=== PATIENT | male | born 1950 | race Caucasian/White ===

== ENCOUNTER 2018-03-31 02:48 | Outpatient (CLI) | payer MEDICARE, MEDICAID, SELFPAY ==
[2018-03-31 09:33] LABS: Hemoglobin A1C 5.2 % (4.5-6.2)
[2018-03-31 09:35] LABS: ALT 11 U/L (12-78); AST 15 U/L (15-37); Albumin 3.8 g/dL (3.4-5.0); Alkaline Phosphatase 57 U/L (46-116); Anion Gap 6.2 mmol/L (3-11); BUN 17 mg/dL (7-18); Bilirubin, Total 0.5 mg/dL (0.2-1.0); CO2 33.8 mmol/L (21.0-32.0); CREATININE 0.78 mg/dL (0.70-1.30); Calcium 9.5 mg/dL (8.5-10.1); Chloride 103 mmol/L (98-107); Cholesterol 194 mg/dL (50-200); Glucose 97 mg/dL (70-100); HDL Cholesterol 54 mg/dL (40-60); LDL CHOLESTEROL 128 mg/dL (<100); Potassium 4.2 mmol/L (3.5-5.1); Sodium 143 mmol/L (136-145); Total Protein 7.1 g/dL (6.4-8.2); Triglyceride 45 mg/dL (30-150)
== END 2018-03-31 03:08 ==
PROVIDERS: PCP Neuromusculoskeletal Medicine & OMM; Visit Provider Psychiatry & Neurology Psychiatry
DX: Z79.899 Other long term (current) drug therapy (principal); R69 Illness, unspecified
CPT/HCPCS: 36415; 80053; 80061; 83721; 83036

== ENCOUNTER 2019-07-26 03:23 | Outpatient (CLI) | payer MEDICARE, MEDICAID, SELFPAY ==
[2019-07-26 08:26] LABS: Hemoglobin A1C 5.7 % (3.8-5.6)
[2019-07-26 09:11] LABS: ALT 16 U/L (16-63); AST 16 U/L (15-37); Albumin 3.9 g/dL (3.4-5.0); Alkaline Phosphatase 54 U/L (46-116); Anion Gap 8.3 mmol/L (3-11); BUN 17 mg/dL (7-18); Bilirubin, Total 0.4 mg/dL (0.2-1.0); CO2 30.7 mmol/L (21.0-32.0); CREATININE 0.84 mg/dL (0.70-1.30); Calcium 9.1 mg/dL (8.5-10.1); Calculated LDL 121 mg/dL (<100); Chloride 102 mmol/L (98-107); Cholesterol 177 mg/dL (<200); Glucose 106 mg/dL (74-106); HDL Cholesterol 50 mg/dL (40-60); Potassium 4.3 mmol/L (3.5-5.1); Sodium 141 mmol/L (136-145); Total Protein 6.7 g/dL (6.4-8.2); Triglyceride 34 mg/dL (<150)
== END 2019-07-26 03:43 ==
PROVIDERS: PCP Neuromusculoskeletal Medicine & OMM; Visit Provider Psychiatry & Neurology Psychiatry
DX: Z79.899 Other long term (current) drug therapy (principal)
CPT/HCPCS: 36415; 80053; 80061; 83036

== ENCOUNTER 2020-05-11 03:04 | Outpatient (CLI) | payer MEDICARE, MEDICAID, SELFPAY ==
[2020-05-11 09:39] LABS: Hemoglobin A1C 5.5 % (<5.7)
[2020-05-11 10:34] LABS: Vitamin D 25 Total 65.6 ng/ml (30-100)
[2020-05-11 10:45] LABS: ALT 24 U/L (16-63); AST 17 U/L (15-37); Alkaline Phosphatase 69 U/L (46-116); Anion Gap 6.4 mmol/L (3-11); BUN 19 mg/dL (7-18); Bilirubin, Total 0.4 mg/dL (0.2-1.0); CO2 31.6 mmol/L (21.0-32.0); CREATININE 0.7 mg/dL (0.70-1.30); Calcium 9.5 mg/dL (8.5-10.1); Calculated LDL 115 mg/dL (<100); Chloride 100 mmol/L (98-107); Cholesterol 175 mg/dL (<200); Glucose 104 mg/dL (74-106); HDL Cholesterol 52 mg/dL (40-60); Potassium 4.5 mmol/L (3.5-5.1); Sodium 138 mmol/L (136-145); Total Protein 7.2 g/dL (6.4-8.2); Triglyceride 40 mg/dL (<150); Vitamin B12 450 pg/mL (193-986)
== END 2020-05-11 03:05 | disposition home or self-care (01) ==
LOC: LBO 03:05
PROVIDERS: PCP Neuromusculoskeletal Medicine & OMM; Visit Provider Psychiatry & Neurology Psychiatry
DX: Z79.899 Other long term (current) drug therapy (principal)
CPT/HCPCS: 36415; 80053; 80061; 82306; 82607; 83036

== ENCOUNTER 2020-07-05 10:16 | Outpatient (REF) | payer MEDICARE, MEDICAID, SELFPAY ==
[2020-07-05 14:27] LABS: C Diff PCR Positive (Negative)
[2020-07-06 11:47] LABS: Campylobacter PCR Negative (Negative); Salmonella PCR Negative (Negative); Shiga Toxin PCR Negative (Negative); Shigella/Enteroinvasive Ecoli Negative (Negative)
== END 2020-07-05 10:17 | disposition home or self-care (01) ==
LOC: NCHCN 10:16
PROVIDERS: PCP Neuromusculoskeletal Medicine & OMM; Visit Provider Neuromusculoskeletal Medicine & OMM
DX: R19.7 Diarrhea, unspecified (principal)
CPT/HCPCS: 87493; 87505; 82272; 87177

== ENCOUNTER 2020-08-01 17:57 | Outpatient (REF) | payer MEDICARE, MEDICAID, SELFPAY ==
[2020-08-01 13:26] LABS: C Diff PCR Positive (Negative)
== END 2020-08-01 17:58 | disposition home or self-care (01) ==
LOC: LBN 17:57
PROVIDERS: PCP Neuromusculoskeletal Medicine & OMM; Visit Provider Neuromusculoskeletal Medicine & OMM
DX: A04.72 Enterocolitis due to Clostridium difficile, not specified as recurrent (principal)
CPT/HCPCS: 87493

== ENCOUNTER 2020-12-25 12:59 | Inpatient (IN) | payer MEDICARE, MEDICAID, SELFPAY ==
[2020-12-25] VITALS (51 sets, daily range): BP systolic 106–130; BP diastolic 50–68; PULSE 50–78; RESP 9–20; TEMP 35.6–36.6; O2SAT 92–99; BMI 22.4
--- NOTE | 2020-12-25 13:15 | DI.CT_ITS ---
Exam(s) CT ABDOMEN PELVIS W EXAM: CT ABDOMEN PELVIS W CLINICAL HISTORY: Abd distension, bloating, vomiting TECHNIQUE: Imaging Protocol: Axial computed tomography images with coronal and sagittal reformatted images were created and reviewed CONTRAST MATERIAL: Intravenous: Omnipaque 350 Contrast volume:100 mL Oral: No COMPARISON: No exams were available for comparison FINDINGS: ABDOMEN: Lung Bases: Normal where visualized. Liver: Normal density. No measurable mass. There is an area of decreased attenuation in the liver adj acent to the gallbladder which may represent focal fatty infiltration. Portal, Superior Mesenteric, and Splenic Veins: Unremarkable. Gallbladder and Biliary Tract: No radiodense calculus or dilation. Pancreas: Normal density, no abnormal calcifications or inflammatory process. Spleen: Normal. There is an accessory spleen adjacent to the inferior pole. Adrenals: No masses seen. Kidneys: Normal size, contour and axis. No radiodense stones or obstructive uropathy. There is a 1.3 cm simple left renal cyst. No follow-up is recommended. There are several tiny hypodensities seen i n both kidneys that are too small for further characterization but likely reflect small cysts. Abdominal Aorta: Abdominal portion non-dilated. Atherosclerosis. Bowel: There is marked dilatation of the sigmoid colon which appears to twist with a seroma pattern s een in the pelvis proximal to the rectosigmoid colon junction. (Series 5 images 502 through 642). T he findings are most consistent with a sigmoid volvulus. There is dilatation of the large bowel prox imally consistent with obstruction. There is a moderate amount of stool throughout the colon. There is thickening of the wall of the rectum and proctitis cannot be excluded. A normal appendix is visu alized. Peritoneal Cavity: No ascites, collection or mesenteric inflammatory response. No free air. Lymph Nodes: Within normal limits. Bones: Within normal limits for the patient's age. Soft Tissues: Bilateral inguinal hernia. There is a fat containing left inguinal hernia. There is a small amount of fluid and a small portion of the urinary bladder extending into the right inguinal h ernia. PELVIS: Bladder: Symmetric distention, no gross wall thickening. A small portion of the urinary bladder on th e right extends into the right inguinal hernia. Reproductive Organs: Unremarkable as visualized. Lymph Nodes: Within normal limits. Bones: Within normal limits for the patient's age. IMPRESSION: 1. Findings most suggestive of a sigmoid volvulus. No evidence of free air. 2. Results of this exam have been verbally communicated with provider. RADIATION DOSE DELIVERED: 991.22mGy.cm Total DLP DATA REPOSITORY: All CT scans at this facility are submitted to the National Radiology Data Registry (NRDR) Dose Index Registry (DIR) with the [employer] [place] [employer] (ACR). RADIATION OPTIMIZATION: All CT scans at this facility use at least one of these dose optimization te chniques: automated exposure control; mA and/or kV adjustment per patient size (includes targeted exa ms where dose is matched to clinical indication); or iterative reconstruction.
--- NOTE | 2020-12-25 13:16 | ED.GENADUL_ITS ---
Discharge Plan Disposition Patient Disposition: [facility] INPATIENT Condition: Serious Discharge Details Clinical Impression: Bowel obstruction, Sigmoid volvulus Admit Date/Time: 12/25/20 16:34 Admit Provider: Alicia Ozuna Attending Provider: Alicia Ozuna Primary Care Provider: Shon Larios ED Provider: Nate Chavez Discharge Data Discharge Date/Time-TO BE ENTERED AT DEPARTURE: 12/25/20 16:40 Medical Decision Making <Nate Chavez MD - Last Filed: 12/25/20 15:05> 70-year-old male with a history of TBI, lives with caregiver. Presents with constipation over days time and now abdominal bloating and one episode of emesis today. He is afebrile and interactive. Exam reveals distended and diffusely tender abdomen. Differential diagnosis includes [place] syndrome, constipation, bowel obstruction. Patient IV access established, fluids initiated, referred for laboratory testing and CT imaging. Patient's laboratories show white count of 6, hematocrit 36, platelets 184. Chemistries unremarkable. CT reveals bowel obstruction/sigmoid volvulus, see formal report. Case discussed with Dr. Ozuna of surgery who will see the patient in consultation. I discussed the findings with the patient's caregiver, Lucia, who is to relay the specifics to the patient's guardian. <Jaycee Callaway DO - Last Filed: 01/01/21 11:42> Pt not seen or examined by me. Please see Dr. Chavez's and Dr. Ozuna's notes for specific details of history, exam, plan and disposition. HPI <Nate Chavez MD - Last Filed: 12/25/20 15:05> General Mode of arrival: EMS . Date/Time Provider Initiated Documentation: 12/25/20 13:08 . Limitations to Documentation: no limitations . Information obtained by: patient and EMS . History of Present Illness 70 year old M presents to the emergency department with the chief complaint of Abdominal distention, vomited, described as moderate, and is localized to the abdomen. Patient reports no radiation. Patient started experiencing this hour(s) and it has been constant. No relieving factors improve symptom(s), No exacerbating factors reported . Patient notes loss of appetite and nausea/vomiting. Patient did receive the following treatments prior to arrival, none Related Data Home Medications Medication Instructions Recorded Confirmed aripiprazole 10 mg tablet 10 mg PO DAILY 12/25/20 12/25/20 esomeprazole magnesium 40 mg 40 mg PO DAILY 12/25/20 12/25/20 capsule,delayed release fluoxetine 20 mg PO DAILY 12/25/20 12/25/20 fluoxetine 20 mg/5 mL (4 mg/mL) 20 mg PO DAILY 12/25/20 12/25/20 oral solution ketoconazole 2 % topical cream 1 applic TOPICAL DAILY 12/25/20 12/25/20 risperidone 0.5 mg tablet 0.5 mg PO DAILY 12/25/20 12/25/20 solifenacin 10 mg tablet 10 mg PO DAILY 12/25/20 12/25/20 tamsulosin 0.4 mg capsule 0.4 mg PO DAILY 12/25/20 12/25/20 oxycodone 5 mg PO Q6H PRN #14 tab 12/28/20 polyethylene glycol 3350 [Miralax] 17 g PO DAILY PRN #1 ea 12/28/20 Previous Rx's Medication Instructions Recorded oxycodone 5 mg PO Q6H PRN #14 tab 12/28/20 polyethylene glycol 3350 [Miralax] 17 g PO DAILY PRN #1 ea 12/28/20 Allergies Allergy/AdvReac Type Severity Reaction Status Date / Time No Known Allergies Allergy Verified 12/25/20 13:28 General Stated Complaint: Abd Prob IVET: 3 Review of Systems <Nate Chavez MD - Last Filed: 12/25/20 15:05> Narrative: No report of fever, chills, cough. Loose stool yesterday. Abdominal bloating and distention with vomiting today. 8 systems reviewed and otherwise negative PFSH <Nate Chavez MD - Last Filed: 12/25/20 15:05> Active Problem List (Updated 12/31/20 @ 00:39 by Carie Zeng DO) Constipation (Acute) Gastelum esophagus (Acute) Traumatic brain injury (Acute) Colostomy and enterostomy complications (Acute) Acid reflux (Chronic) Anemia (Chronic) Atelectasis (Acute) Bowel obstruction (Acute) Sigmoid volvulus (Acute) Medical History (Updated 12/31/20 @ 00:39 by Carie Zeng DO) BPH (benign prostatic hyperplasia) Social History Smoking/Tobacco Use Status: Former Tobacco Use Smoking risk assessment performed?: Yes Alcohol Intake: never Substance use type: does not use Other: Lives with Caregiver Lucia Exam <Nate Chavez MD - Last Filed: 12/25/20 15:05> Narrative Exam Narrative: GEN: awake, alert, oriented 3. Pleasant, well groomed, interactive. HEAD: Normocephalic, atraumatic ENT: External ear exam unremarkable EYES: PERRL, EOMI NECK: Full ROM, no VLAD, no menigismus CHEST/RESP: Nontender, clear to auscultation bilateral, no wheeze/rhonchi/rales CARDIOVASCULAR: RRR, no murmur, rub shagufta. 2+ Rad pulse bilateral ABDOMEN: Soft, distended and mildly diffusely tender, +Bowel sounds EXT: Full ROM, no edema, no rash Neuro: Grossly normal neurologic exam, conversant, interactive. Psych: Speech fluent, thoughts congruent, affect normal Course <Nate Chavez MD - Last Filed: 12/25/20 15:05> Vital Signs Vital signs: Vital Signs Temperature 36.3 C L 12/25/20 13:03 Pulse 68 12/25/20 13:03 Respiratory Rate 13 12/25/20 13:03 Blood Pressure 119/67 12/25/20 13:03 Pulse Oximetry 99 12/25/20 13:03 Temperature 36.3 C L 12/25/20 13:03 Temperature Source Skin 12/25/20 13:03 Pulse 68 12/25/20 13:03 Respiratory Rate 13 12/25/20 13:03 Respiratory Effort Non-Labored 12/25/20 13:03 Blood Pressure 119/67 12/25/20 13:03 Pulse Oximetry 99 12/25/20 13:03 Oxygen Delivery Method Room Air 12/25/20 13:03 Oxygen Flow Rate 0 12/25/20 13:03 Pain Level 9 12/25/20 13:12
[2020-12-25] MEDS: Normal Saline 1,000 ML 125 ML IV ×2 (13:26→19:51)
[2020-12-25 13:33] LABS: Abs Immature Grans 0.01 10^3/uL (0.0-0.06); Absolute Basophil Count 0.01 10^3/uL (0.0-0.2); Absolute Eosinophil Count 0.03 10^3/uL (0.0-0.7); Absolute Lymphocyte Count 0.58 10^3/uL (1.2-3.4); Absolute Monocyte Count 0.35 10^3/uL (0.1-0.8); Absolute Neutrophil Count 5.34 10^3/uL (1.2-6.7); Basophils % 0.2; Eosinophils % 0.5; HCT 36.7 % (40.0-50.0); HGB 12.2 g/dL (13.5-17.5); Immature Grans % 0.2; Lymphocytes % 9.2; MCH 31.2 pg (27.0-33.0); MCHC 33.2 % (32.0-36.0); MCV 93.9 fL (80-95); MPV 10.5 fL (8.0-11.0); Monocytes % 5.5; Neutrophils % 84.4; Nucleated RBC 0 %; Platelet Count 184 10^3/uL (130-400); RBC 3.91 10^6/uL (4.36-5.78); RDW 11.9 % (11.8-14.1); RDW-SD 41.1 fL; WBC 6.32 10^3/uL (4.4-10.8)
[2020-12-25 13:45] LABS: ALT 17 U/L (16-63); AST 13 U/L (15-37); Albumin 3.7 g/dL (3.4-5.0); Alkaline Phosphatase 49 U/L (46-116); BUN 18 mg/dL (7-18); Bilirubin, Total 0.5 mg/dL (0.2-1.0); CREATININE 0.6 mg/dL (0.70-1.30); Calcium 8.8 mg/dL (8.5-10.1); Chloride 103 mmol/L (98-107); Glucose 127 mg/dL (74-106); Potassium 3.7 mmol/L (3.5-5.1); Sodium 140 mmol/L (136-145); Total Protein 6.8 g/dL (6.4-8.2)
[2020-12-25] MEDS: Omnipaque 350 MG/ML 100 ML BTL IJ (14:29)
[2020-12-25] MEDS: Normal Saline - Diluent 50 ML VIAL IV (14:29)
--- NOTE | 2020-12-25 14:45 | RT.EKG_ITS ---
APPROVED REPORT Exam: Resting ECG Reason for Exam: bowel obstruction Patient Location: E HR:72 bpm ECG Measurements Heart Rate 72 AXIS ND 170 P 78 QRSd 97 QRS -25 QT 406 T 23 QTc 444 Conclusion Sinus rhythm...normal P axis, V-rate 60- 99
[2020-12-25 15:02] LABS: Source Nasal/Nares
[2020-12-25 15:02] LABS: Lactate 0.5 mmol/L (0.6-1.4)
--- NOTE | 2020-12-25 15:33 | W.ANESPRE ---
General Info Date of Service Date Performed: 12/25/20 Height: 5 ft 11 in Weight: 72.9 kg Body Mass Index (BMI): 22.4 Meds Allergies and Home Medications Allergies Allergy/AdvReac Type Severity Reaction Status Date / Time No Known Allergies Allergy Verified 12/25/20 13:28 Home Medication Medication Instructions Recorded aripiprazole 10 mg tablet 10 mg PO DAILY 12/25/20 docusate sodium 100 mg capsule 100 mg PO DAILY 12/25/20 esomeprazole magnesium 40 mg 40 mg PO DAILY 12/25/20 capsule,delayed release fluoxetine 20 mg PO DAILY 12/25/20 fluoxetine 20 mg/5 mL (4 mg/mL) 20 mg PO DAILY 12/25/20 oral solution ketoconazole 2 % topical cream 1 applic TOPICAL DAILY 12/25/20 linaclotide 145 mcg capsule 145 mcg PO DAILY 12/25/20 polyethylene glycol 3350 [Miralax] 8 PO DAILY 12/25/20 risperidone 0.5 mg tablet 0.5 mg PO DAILY 12/25/20 solifenacin 10 mg tablet 10 mg PO DAILY 12/25/20 tamsulosin 0.4 mg capsule 0.4 mg PO DAILY 12/25/20 Current Visit Medications: Current Medications Generic Name Dose Route Start Last Admin Trade Name Freq PRN Reason Stop Dose Admin Sodium Chloride 1,000 mls @ 125 mls/hr 12/25/20 13:30 12/25/20 13:26 Saline 1000ml Bag IV 125 mls/hr INFUSION RADHA Administration Sodium Chloride 1,000 mls @ 125 mls/hr 12/25/20 15:30 Saline 1000ml Bag IV INFUSION RADHA IV Miscellaneous Supplies 1 each 12/25/20 13:30 Iv Access IV DIRECTED RADHA Iohexol 100 ml 12/25/20 14:30 12/25/20 14:29 Omnipaque 350 Mg/Ml 100 Ml Btl IJ 01/24/21 23:59 100 ml DIRECTED RADHA Administration Sodium Chloride 0 ml 12/25/20 13:18 Normal Saline Flush 10 Ml Syr IVP PRN PRN Sodium Chloride 50 ml 12/25/20 14:30 12/25/20 14:29 Normal Saline - Diluent 50 Ml Vial IV 50 ml .FOR DI USE RADHA Administration PFSH Active Problems Active Problems: Problem Status Onset Code Bowel obstruction K56.609 Sigmoid volvulus K56.2 Medical History Medical History (Updated 12/25/20 @ 15:58 by Alicia Ozuna MD) Gastelum esophagus BPH (benign prostatic hyperplasia) Constipation Traumatic brain injury Tobacco Smoking/Tobacco Use Status: Former Tobacco Use Alcohol Alcohol Intake: never Substance Use Substance use type: does not use Vital Signs and Lab Results Vital Signs Most Recent Vital Signs in EMR: Most Recent Vital Signs Temp Pulse Resp BP Pulse Ox 36.3 C L 64 15 128/68 96 12/25/20 13:03 12/25/20 14:16 12/25/20 15:00 12/25/20 14:16 12/25/20 15:00 Lab Results Result Diagrams: 12/25/20 13:05 12/25/20 13:05 Blood Type / Crossmatch: Patient ABO/Rh O Negative 12/25/20 14:57 12/25/20 Antibody Screen NEGATIVE 12/25/20 14:57 12/25/20 Complete Blood Count: White Blood Count 6.32 10^3/uL (4.4-10.8) 12/25/20 13:05 12/25/20 Red Blood Count 3.91 10^6/uL (4.36-5.78) L 12/25/20 13:05 12/25/20 Hemoglobin 12.2 g/dL (13.5-17.5) L 12/25/20 13:05 12/25/20 Hematocrit 36.7 % (40.0-50.0) L 12/25/20 13:05 12/25/20 Platelet Count 184 10^3/uL (130-400) 12/25/20 13:05 12/25/20 Venous Blood Lactate 0.5 mmol/L (0.6-1.4) L 12/25/20 14:57 12/25/20 Complete Metabolic Panel: Sodium Level 140 mmol/L (136-145) 12/25/20 13:05 12/25/20 Potassium Level 3.7 mmol/L (3.5-5.1) 12/25/20 13:05 12/25/20 Chloride Level 103 mmol/L (98-107) 12/25/20 13:05 12/25/20 Carbon Dioxide Level 30.0 mmol/L (21.0-32.0) 12/25/20 13:05 12/25/20 Blood Urea Nitrogen 18 mg/dL (7-18) 12/25/20 13:05 12/25/20 Creatinine 0.6 mg/dL (0.70-1.30) L 12/25/20 13:05 12/25/20 Estimated GFR/1.73 m2 >= 60.00 (mL/min/1.73m2) 12/25/20 13:05 12/25/20 Calcium Level 8.8 mg/dL (8.5-10.1) 12/25/20 13:05 12/25/20 Albumin 3.7 g/dL (3.4-5.0) 12/25/20 13:05 12/25/20 Glucose Level 127 mg/dL (74-106) H 12/25/20 13:05 12/25/20 Liver Function Panel: Alanine Aminotransferase (ALT/SGPT) 17 U/L (16-63) 12/25/20 13:05 12/25/20 Aspartate Amino Transf (AST/SGOT) 13 U/L (15-37) L 12/25/20 13:05 12/25/20 Coagulation Panel: No Data to Display Cardiac Panel: No Data to Display Arterial Blood Gas: No Data to Display Venous Blood Gas: No Data to Display Pancreas Panel: No Data to Display Thyroid Panel: No Data to Display Infectious Disease: Coronavirus (COVID-19)(PCR) Negative (Negative) 12/25/20 14:55 12/25/20 Coronavirus 2019 Source Nasal/Nares 12/25/20 14:55 12/25/20 Blood Cultures: No Data to Display Toxicology Panel: No Data to Display Imaging and Studies Imaging and Studies EKG Summary: Conclusion Sinus rhythm...normal P axis, V-rate 60- 99 12/25/20 Anesthesia Assessment and Plan Anesthesia History Personal History: No History of Anesthesia Complications Family History: No Family History of Anesthesia Complications Exercise Tolerance Exercise Tolerance: Metabolic Equivalents>4 Pertinent Negatives Pertinent Negatives: No Major Cardiovascular Symptoms or Complaints, No Major Pulmonary Symptoms or Complaints and No History of CVA/TIA Cardiac & Pulmonary Exam Cardiac Exam: Normal S1/S2 Heart Sounds Pulmonary Exam: Clear Bilateral Breath Sounds Implantable Cardiac Device Does patient have a Pacemaker or an ICD?: No Airway Exam Known Difficult Airway: No Mallampati Class: 3 Mouth Opening: Narrow (< 3cm) Thyromental Distance: Less than 3 cm Neck Range of Motion: Full ROM Neck Circumference: Normal Teeth Condition: Generalized Poor Dentition and Loose or Chipped (Four of them not sure which ones) ASA Classification ASA Score: ASA 2 Emergency Case?: Yes NPO Status NPO Status: NPO Clears >2 hours, Solids >8 hours Anesthesia Plan Resuscitation Status: Full Code Anesthesia Technique: General Anesthesia Airway Planned: Endotracheal Tube Monitors Used: Standard Monitors
--- NOTE | 2020-12-25 15:52 | W.PREOPHP ---
Date of service: 12/25/20 Time of Service: 15:52 Assessment and Plan Assessment and plan (1) Sigmoid volvulus: Status: Acute Assessment and plan: Mr. Bazzi is a 70 year old male with a history of constipation on Linzes who has not felt well since Friday. He has had one episode of vomiting. CT scan revealed a sigmoid volvulous. Discussed exploratory l;aparotomy with bowel resection and possible colostomy vs anastamosis. Non-surgical treatment with decompression with flex sig is not usually successful and when it is the patients have a high risk of recurrance especially in someone with chronic constipation. Risks, benefits of both non-surgical management and surgery were discussed with his caregiver and his Guardian. After answering their [id number] they agreed to proceed with ex-lap and possible colostomy. Hospital course explained. Complications include but are not limited to bleeding, pain, infection, anstamotic leak, colostomy necrosis, postoperatibve hernia development. Perioperative NE and or stroke as well as . His gusrdian understands the risks and has consented to the surgery. History of Present Illness Consults Consult date: 12/25/20 Requesting physician: Nate Chavez Narrative: Dyllan is a pleasant 70 year old male who was brought to the ER by his caregiver for N/V and abdominal distention. He has a history of Chronic constipation for which he is opn Linzess. The patient spend the weekend with his guardian and when his caregiver picked him up on Friday he was tired and complained of some abdominal pain. he had a small liquid BM. He ate dinner and slept most of the jnight. This morning he woke up and had one episode of emesis and continued to complain of abdominal pain so his caregiver brought him in to the ER. Workup revealed normal WBC count and lactate. A CT scan was done which showed a sigmoid volvulous. The patient has no history of cardiac issues or pulmonary issues. He does use a C-Pap at night. He has not had any issues in the past with anesthesia. He has not had any abdominal surgeries in the past. His last colonoscopy was in 2007. He was getting scheduled for a consult at [facility] [place] and Colonoscopy. Patient has a history of Barett's. Review of Systems Constitutional Constitutional: Denies fever(s) and Reports poor appetite Comments: [id number] from the patients caregiver. Cardiovascular Cardiovascular: Denies chest pain, Denies irregular heart rhythm and Denies dyspnea Respiratory Respiratory: Denies cough and Denies dyspnea Gastrointestinal Gastrointestinal: Reports as per [facility] Medical History (Updated 12/25/20 @ 15:58 by Alicia Ozuna MD) Gastelum esophagus BPH (benign prostatic hyperplasia) Constipation Traumatic brain injury Social History (Updated 12/25/20 @ 15:59 by Alicia Ozuna MD) Smoking/Tobacco Use Status: Former Tobacco Use Smoking risk assessment performed?: Yes Alcohol Intake: never Substance use type: does not use Other: Lives with Caregiver Lucia Arthena Allergies and Home Medications Allergies Allergy/AdvReac Type Severity Reaction Status Date / Time No Known Allergies Allergy Verified 12/25/20 13:28 Home Medications Medication Instructions Recorded Confirmed Type aripiprazole 10 mg tablet 10 mg PO DAILY 12/25/20 12/25/20 History docusate sodium 100 mg capsule 100 mg PO DAILY 12/25/20 12/25/20 History esomeprazole magnesium 40 mg 40 mg PO DAILY 12/25/20 12/25/20 History capsule,delayed release fluoxetine 20 mg PO DAILY 12/25/20 12/25/20 History fluoxetine 20 mg/5 mL (4 mg/mL) 20 mg PO DAILY 12/25/20 History oral solution ketoconazole 2 % topical cream 1 applic TOPICAL DAILY 12/25/20 12/25/20 History linaclotide 145 mcg capsule 145 mcg PO DAILY 12/25/20 12/25/20 History polyethylene glycol 3350 [Miralax] 8 PO DAILY 12/25/20 History risperidone 0.5 mg tablet 0.5 mg PO DAILY 12/25/20 12/25/20 History solifenacin 10 mg tablet 10 mg PO DAILY 12/25/20 12/25/20 History tamsulosin 0.4 mg capsule 0.4 mg PO DAILY 12/25/20 12/25/20 History Exam Const General: cooperative and no acute distress Orientation: alert HENMT Head: normocephalic and atraumatic Resp Effort & Inspection: normal respiratory effort Auscultation: clear to auscultation bilaterally Cardio Rate: regular rate Rhythm: regular rhythm Heart Sounds: no gallops, no murmurs and no rubs GI Inspection: distended Palpation: soft and nontender Auscultation: absent bowel sounds Results Labs Result diagrams: 12/25/20 13:05 12/25/20 13:05 Labs: Laboratory Results - last 24 hr 12/25/20 12/25/20 12/25/20 13:05 13:05 14:55 WBC 6.32 RBC 3.91 L Hgb 12.2 L Hct 36.7 L MCV 93.9 MCH 31.2 MCHC 33.2 RDW 11.9 Plt Count 184 MPV 10.5 Immature Gran % 0.2 Neutrophils % 84.4 Lymphocytes % 9.2 Monocytes % 5.5 Eosinophils % 0.5 Basophils % 0.2 Nucleated RBC % 0 Absolute Neutrophils 5.34 Absolute Lymphocytes 0.58 L Absolute Monocytes 0.35 Absolute Eosinophils 0.03 Absolute Basophils 0.01 VBG Lactate Sodium 140 Potassium 3.7 Chloride 103 Carbon Dioxide 30.0 Anion Gap 7.0 BUN 18 Creatinine 0.6 L Estimated GFR/1.73 m2 >= 60.00 Glucose 127 H Calcium 8.8 Total Bilirubin 0.5 AST 13 L ALT 17 Alkaline Phosphatase 49 Total Protein 6.8 Albumin 3.7 COVID-19 Source Nasal/Nares Patient ABO/Rh Antibody Screen 12/25/20 12/25/20 14:57 14:57 WBC RBC Hgb Hct MCV MCH MCHC RDW Plt Count MPV Immature Gran % Neutrophils % Lymphocytes % Monocytes % Eosinophils % Basophils % Nucleated RBC % Absolute Neutrophils Absolute Lymphocytes Absolute Monocytes Absolute Eosinophils Absolute Basophils VBG Lactate 0.5 L Sodium Potassium Chloride Carbon Dioxide Anion Gap BUN Creatinine Estimated GFR/1.73 m2 Glucose Calcium Total Bilirubin AST ALT Alkaline Phosphatase Total Protein Albumin COVID-19 Source Patient ABO/Rh O Negative Antibody Screen NEGATIVE Last Vital Signs Temp 97.3 F L 12/25/20 13:03 Pulse 64 12/25/20 14:16 Resp 15 12/25/20 15:00 BP 128/68 12/25/20 14:16 Pulse Ox 96 12/25/20 15:00
[2020-12-25 15:58] LABS: COVID-19 PCR Negative (Negative)
[2020-12-25] MEDS: Lactated Ringers 1,000 ML 30 ML IV (16:35)
[2020-12-25] MEDS: AMPICILLIN/SULBACTAM 3 GM in Normal Saline 100 ML IVPB (16:40)
--- NOTE | 2020-12-25 17:14 | BOWEL_PTH ---
PATIENT: Jsutus Bazzi LOC: U#:[id number] AGE/SX: 70/M ROOM: [id number] RE12/25/[address]: Alicia Ozuna MD : 1950 BED: A DIS: 12/29/2020 SPEC #: [id number] RECD: 12/26/20 11:28 STATUS: RE REQ #: [id number] BENTON: 12/25/20 17:[address]: Alicia Ozuna DEPT: Surgical Specimen RECD BY: Jacque Hudson ENTERED: 12/26/20 11:29 SP TYPE: Bowel OTHR DR: Shon Larois Tissues: 1 - BOWEL RESECTION(OTHER) Procedures: GROSS AND MICRO LEVEL 5 Comments: [id number]
[2020-12-25] MEDS: Bupivacaine 0.25% Pres-Free 30 ML VIAL (17:48)
--- NOTE | 2020-12-25 18:42 | ROE_ITS ---
Date of service: 12/25/20 Time of Service: 18:42 Operative Note Operative Note DATE OF PROCEDURE: 12/25/20 PRE-OP DIAGNOSIS: sigmoid volvulous POST-OP DIAGNOSIS: same PROCEDURE: Ex-lap, sigmoid colon resection and colostomy creation SURGEON: Alicia Ozuna APPLICATIONS INTERN: Carie Jj ANESTHESIA TYPE: Local By Surgeon and General LMA/ETT (Patricia Morales CRNA) Refer to Anesthesia Record ESTIMATED BLOOD LOSS: 50 PATHOLOGY: other (sigmoid colon) COMPLICATIONS: None Patient was transported to: PACU Patient's condition: stable Indications: Mr. Bazzi is a 70 year old male with a history of constipation on Linzes who has not felt well since Friday. He has had one episode of vomiting. CT scan revealed a sigmoid volvulous. Discussed exploratory l;aparotomy with bowel resection and possible colostomy vs anastamosis. Non-surgical treatment with decompression with flex sig is not usually successful and when it is the patients have a high risk of recurrance especially in someone with chronic constipation. Risks, benefits of both non- surgical management and surgery were discussed with his caregiver and his Guardian. After answering their [id number] they agreed to proceed with ex-lap and possible colostomy. Hospital course explained. Complications include but are not limited to bleeding, pain, infection, anstamotic leak, colostomy necrosis, postoperative hernia development. Perioperative NH and or stroke as well as . His guardian understands the risks and has consented to the surgery. Findings: A dilated and redundant descending and sigmoid colon. Procedure Description: After informed consent was obtained from the patient's legal guardian he was taken to the operating room and placed in a supine position. SCDs were applied. Monitors were applied he was placed under general anesthesia and intubated. A Bejarano catheter was then placed in a standard surgical fashion without difficulty. HIs abdomen was then prepped and draped in a standard fashion. A time out was done and patient's name, date of , jarret rgies to medications, procedure to be done, antibiotic prophylaxis and DVT prophylaxis were reviewed. Fire risk was assessed. Exparel mixed with quarter percent bupivacaine was then injected in the midline from just above the umbilicus to just above the pubic symphysis. Using a 10 blade a skin incision was made in the midline. Dissection was done with cautery through the subcutaneous tissue down to the fascia. The fascia was opened with the cautery. The peritoneum was grasped and opened sharply. I was then able to place my finger into the peritoneum and opened the rest of the peritoneum with cautery along the length of the incision. Some serous fluid was identified which was suctioned. The sigmoid colon was clearly identified and was very dilated. Measured 15 cm in diameter. It was twisted on its mesentery. The bowel was untwisted. There is no ischemia of the intestine noted. A small opening was made in the mesentery in the descending colon where the bowel was no longer dilated. Using an 80 cm EDDIE the descending colon was transected. An area in the sigmoid colon was then identified just above the pelvic rim. Again a small opening was made in the mesentery just under the intestine with a hemostat. The sigmoid colon was transected with a 80 cm EDDIE stapler. The mesentery was then transected using LigaSure. Once the mesentery was completely transected the resected intestine was removed from the operating room table it was marked with a single suture proximal. The two stapled bowel ends were identified and looked healthy. There is quite a large discrepancy in size between the rectum and the descending colon. I made the decision to do a colostomy instead of trying to reconnect the bowel. Using 2-0 silk the rectal stump was secured to the peritoneum just at the pelvic rim. This will help once we can get him reconnected down the road. Next a small round incision was made in the skin medial to the umbilicus on the left dissection was done with cautery through the subcutaneous tissue and the fascia was incised. The muscle was retracted and the peritoneum was opened sharply. The peritoneum and fascia were stretched allowing the descending colon easily come up through t he opening. There was no tension. The midline fascia was then grasped with Wycombe's and closed with a #1 looped PDS suture. Once the fascia was closed more of the local anesthetic was injected along the entire incision. The skin was reapproximated with a skin stapler. At this point the colostomy was created in a standard fashion using 2-0 Prolene. Once the colostomy was created the skin was cleaned and dried. Sponge instrument and needle counts were correct at this point. A dry dressing was applied to the midline incision and an ostomy bag was applied to the colostomy. The patient was then woken up extubated and taken back to PACU in stable condition. There were no immediate complications.
--- NOTE | 2020-12-25 18:46 | W.ANESPOSTOP ---
Postoperative Evaluation Date, Time and Location Date Performed: 12/25/20 Time Performed: 18:46 Patient Location: PACU Vital Signs Most Recent Imported Vital Signs: Most Recent Vital Signs Temp Pulse Resp BP Pulse Ox 36.6 C 51 L 13 123/58 L 97 12/25/20 18:20 12/25/20 18:32 12/25/20 18:32 12/25/20 18:32 12/25/20 18:32 Pain Score Most Recent Pain Score: Most Recent Pain Score Pain Level 0 12/25/20 18:32 Assessment Mental Status: Awake (Alert & Oriented to Patient Baseline) Airway and Respiratory Function: Patent airway with normal (patient baseline) respiratory exam Cardiovascular Function: Hemodynamically Stable Hydration Status: Adequately Hydrated Nausea & Vomiting: No Nausea or Vomiting Pain: Pt. Denies Any Pain Peripheral Nerve Block: Patient did not receive a nerve block
[2020-12-25] MEDS: fentaNYL 100 MCG/2 ML VIAL IVP (19:14)
[2020-12-25] MEDS: Pantoprazole 40 MG VIAL IVP (20:17)
[2020-12-25] MEDS: Normal Saline Flush 10 ML SYR IVP (20:17)
[2020-12-25] MEDS: ACETAMINOPHEN 1,000 MG/100 ML BTL 400 MG IVPB (20:18)
[2020-12-26] VITALS (77 sets, daily range): BP systolic 92–123; BP diastolic 41–60; PULSE 64–97; RESP 5–24; TEMP 36.4–36.5; O2SAT 87–99
[2020-12-26] MEDS: ACETAMINOPHEN 1,000 MG/100 ML BTL 400 MG IVPB ×3 (03:48→19:15)
[2020-12-26] MEDS: Normal Saline 1,000 ML 125 ML IV ×3 (03:49→21:27)
[2020-12-26] MEDS: Normal Saline Flush 10 ML SYR IVP ×4 (04:00→19:14)
[2020-12-26 07:12] LABS: Abs Immature Grans 0.05 10^3/uL (0.0-0.06); Absolute Basophil Count 0.01 10^3/uL (0.0-0.2); Absolute Eosinophil Count 0.03 10^3/uL (0.0-0.7); Absolute Lymphocyte Count 0.72 10^3/uL (1.2-3.4); Absolute Monocyte Count 0.54 10^3/uL (0.1-0.8); Basophils % 0.1; Eosinophils % 0.3; HCT 35.2 % (40.0-50.0); HGB 11.5 g/dL (13.5-17.5); Immature Grans % 0.5; Lymphocytes % 7.7; MCH 30.9 pg (27.0-33.0); MCHC 32.7 % (32.0-36.0); MCV 94.6 fL (80-95); MPV 10.9 fL (8.0-11.0); Monocytes % 5.7; Neutrophils % 85.7; Nucleated RBC 0 %; Platelet Count 159 10^3/uL (130-400); RBC 3.72 10^6/uL (4.36-5.78); RDW 11.9 % (11.8-14.1); RDW-SD 41.2 fL
[2020-12-26 07:14] LABS: Absolute Neutrophil Count 8.06 10^3/uL (1.2-6.7)
--- NOTE | 2020-12-26 07:39 | W.PM.PROGNOT ---
Date of Service Date of service: 12/26/20 Time of Service: 07:39 Assessment and Plan Assessment and plan (1) Sigmoid volvulus: Status: Acute Assessment and plan: POD #1 s/p exploratory laparotomy with sigmoid colon resection and colostomy creation Inferior portion of the midline incision was saturated. Changed the mepliex and colostomy appliance. DIET- NPO Stoma is pink and edematous (+) air and soft, thick brown stool. PAIN- medications ordered, Well controlled per patient's report Continue Pulmonary toilet Encourage sitting up right in the bed and sitting in the chair with deep breathing techniques. Spoke with nsg about assisting the patient with oral hygiene this morning. P// Sitting up right, pain control Subjective Subjective Interval history since last seen: Patient reports that he slept very well last night. He expresses that he is happy, he proceeded with the surgery. I am feeling much better. Denies having any SOB or chest pain. Exam Const General: cooperative, healthy appearing and comfortable Orientation: alert and oriented x3 Resp Effort & Inspection: normal respiratory effort, no audible wheezes and cough Auscultation: rhonchi GI Other: Midline incision- Joan in place. With some old blood draining from the inferior portion of the incision site. Colostomy- (+) air and soft, thick brown stool Stoma is edematous and pink. Objective Last Vital Signs Temp 36.5 C 12/26/20 04:03 Pulse 75 12/26/20 04:03 Resp 17 12/26/20 04:03 BP 105/53 L 12/26/20 04:03 Pulse Ox 91 L 12/26/20 04:03 Laboratory Results - last 24 hr 12/25/20 12/25/20 12/25/20 13:05 13:05 14:55 WBC 6.32 RBC 3.91 L Hgb 12.2 L Hct 36.7 L MCV 93.9 MCH 31.2 MCHC 33.2 RDW 11.9 Plt Count 184 MPV 10.5 Immature Gran % 0.2 Neutrophils % 84.4 Lymphocytes % 9.2 Monocytes % 5.5 Eosinophils % 0.5 Basophils % 0.2 Nucleated RBC % 0 Absolute Neutrophils 5.34 Absolute Lymphocytes 0.58 L Absolute Monocytes 0.35 Absolute Eosinophils 0.03 Absolute Basophils 0.01 VBG Lactate Sodium 140 Potassium 3.7 Chloride 103 Carbon Dioxide 30.0 Anion Gap 7.0 BUN 18 Creatinine 0.6 L Estimated GFR/1.73 m2 >= 60.00 Glucose 127 H Calcium 8.8 Total Bilirubin 0.5 AST 13 L ALT 17 Alkaline Phosphatase 49 Total Protein 6.8 Albumin 3.7 COVID-19 Source Nasal/Nares SARS-CoV-2 (PCR) Negative Patient ABO/Rh Antibody Screen 12/25/20 12/25/20 12/26/20 14:57 14:57 06:11 WBC 9.40 D RBC 3.72 L Hgb 11.5 L Hct 35.2 L MCV 94.6 MCH 30.9 MCHC 32.7 RDW 11.9 Plt Count 159 MPV 10.9 Immature Gran % 0.5 Neutrophils % 85.7 Lymphocytes % 7.7 Monocytes % 5.7 Eosinophils % 0.3 Basophils % 0.1 Nucleated RBC % 0 Absolute Neutrophils 8.06 H Absolute Lymphocytes 0.72 L Absolute Monocytes 0.54 Absolute Eosinophils 0.03 Absolute Basophils 0.01 VBG Lactate 0.5 L Sodium Potassium Chloride Carbon Dioxide Anion Gap BUN Creatinine Estimated GFR/1.73 m2 Glucose Calcium Total Bilirubin AST ALT Alkaline Phosphatase Total Protein Albumin COVID-19 Source SARS-CoV-2 (PCR) Patient ABO/Rh O Negative Antibody Screen NEGATIVE
[2020-12-26 08:39] LABS: Calcium 8.2 mg/dL (8.5-10.1); Glucose 105 mg/dL (74-106)
[2020-12-26 08:40] LABS: Anion Gap 5.4 mmol/L (3-11); BUN 16 mg/dL (7-18); CO2 29.6 mmol/L (21.0-32.0); CREATININE 0.6 mg/dL (0.70-1.30); Chloride 108 mmol/L (98-107); Potassium 3.8 mmol/L (3.5-5.1); Sodium 143 mmol/L (136-145)
--- NOTE | 2020-12-26 09:17 | PDOC.CMIN ---
- If Service Date Differs Date of service: 12/26/20 Time of Service: 09:17 Care Management Initial Assess REASON FOR HOSPITALIZATION:: Bowel Obstruction, Sigmoid volvulus PAST MEDICAL HISTORY/PAST SURGICAL HISTORY:: Gastelum esophagus. BPH. Constipation. Traumatic brain injury. s/p sigmoid resection and colostomy creation 12/25/20 PREVIOUS FUNCTIONAL STATUS/SOCIAL/FAMILY SUPPORTS:: Justus lives in [place], [place] with his home provider Lucia Hammond. His guardian is Sushma Kirk. He has a history of a TBI and requires assistance with his ADL's. Justus ambulates independently and doesn't require any assistive devices. Additionally, Justus has a gearcase assembler through [employer] services and Glenys anticipates that they will provide additional support services in the home if needed. CURRENT FUNCTIONAL STATUS:: Justus was sitting up in his chair visiting with his caregiver Glenys when CM met with him. He reports that he is feeling much better today, than when he came in yesterday. His caregiver reported that Justus was previously waiting to get into see Dr. Sharma at [facility] and was scheduled for a colonoscopy at [facility]. Glenys is unsure if he will need to follow up with [facility] or if Dr. Capellan will be the provider following his GI needs. Also, Glenys reported that Justus needs to have 12 teeth removed by oral surgery and was wondering how long that should be put on hold? CM will reach out to Dr. Weir's office for clarification. ADVANCE DIRECTIVES:: None Has patient been provided with info about the portal/API?: Yes Did the patient sign up for the portal?: No CODE STATUS:: Full Code INSURANCE COVERAGE / FINANCIAL ISSUES:: Medicaid. Medicare CURRENT HOME/COMMUNITY SERVICES/EQUIPMENT:: Has a home care provider: Glenys Hammond. Has [employer] Support, gearcase assembler is Tamy Marks PRIMARY CARE PHYSICIAN:: Shon Larios POTENTIAL DISCHARGE NEEDS:: [facility] RN/PT PATIENT/FAMILY EDUCATION NEEDS:: Review discharge and colostomy instructions, limitations and plan to follow up with community providers. ask me three. TRANSPORTATION:: Via private vehicle with caregiver. PLAN:: Anticipate Justus will be discharged home via private vehicle with his caregiver when medically cleared by surgeon. He will need new [facility] RN/PT services and colostomy supplies. Justus will follow up with his community providers and discharge plan of care as prescribed. CM will continue to support disharge planning needs.
[2020-12-26] MEDS: HYDROmorphone 2 MG/ML VIAL 1 MG SC (09:42)
[2020-12-26] MEDS: FLUoxetine 20 MG CAP PO (09:42)
[2020-12-26] MEDS: Albuterol/Ipratropium 3 ML UPD VIAL UPD (09:46)
--- NOTE | 2020-12-26 12:35 | PUCC_ITS ---
General Date of Service Date of service: 12/26/20 Time of Service: 08:30 Reason for Admission to ICU: s/p sigmoidectomy and colectomy for sigmoid volvulus Assessment and Plan Assessment and plan (1) Sigmoid volvulus: Status: Acute (2) Bowel obstruction: Status: Acute Qualifiers: Intestinal obstruction type: volvulus Qualified Code(s): K56.2 - Volvulus (3) Atelectasis: Status: Acute (4) Anemia: Status: Chronic Qualifiers: Anemia type: unspecified type Qualified Code(s): D64.9 - Anemia, unspecified (5) Acid reflux: Status: Chronic Assessment and plan: This is a 70-year-old gentleman with history of a TBI who has a guardian as well as history of constipation who presented with abdominal pain and was found to have a sigmoid volvulus. He is postop day #1 for ex lap with sigmoid resection and colostomy creation. His colostomy and incision appear healthy. His vital signs are stable. His pain seems to be relatively well controlled. On his initial CAT scan on admission he did have a mild amount of atelectasis and having undergone general anesthesia for an abdominal surgery he is at a higher risk of developing further atelectasis as well as a complicating postop pneumonia. He also has some respiratory secretions that seem to be getting caught a little bit. He is doing very well and is stable. No active critical care needs for me. CCM to sign off. Qualifiers: Esophagitis presence: esophagitis presence not specified Qualified Code(s): K21.9 - Gastro-esophageal reflux disease without esophagitis Recommendations Pulmonary: Atelectasis - recommend Incentive spirometry and Acapella (VibraPEP) - OOB to chair - Duoneb prn and albuterol HFA prn Cardiac: No acute concerns Renal: No acute concerns - continue I/O monitoring I&O: Intake & Output 12/24/20 12/24/20 12/25/20 12/26/20 00:59 23:59 23:59 23:59 Intake Total 1438.25 / 1438.25 2095.833 / 2095.833 Output Total 585 / 585 300 / 300 Balance 853.25 / 853.25 1795.833 / 1795.833 Weight 72.9 kg 74.9 kg Daily Fluid Goal:: even to slightly positive GI Nutrition: POD#1 ex lap with sigmoid resection and colostomy - care per surgical team - on 125cc NS - can likely be stopped once patient is taking in adequate PO - diet advancement per surgery - PT ordered already Date of Last Bowel Movement: 12/24/20 Infectious Disease: No acute concerns - received Unasyn mac-operatively Hematologic: Anemia, normocytic - likely chronic - no acute concerns - outpatient work up - B12 normal Neurologic: h/o TBI - on home medication regimen Endocrine: No acute concerns Prophylaxis: Lovenox and pantoprazole Code Status: Resuscitation Status Full Code Subjective Critical and life-threatening events over the past 24 hours: This is a 70-year-old male with a TBI and a caregiver who presents with abdominal distenti on and nausea and vomiting to the ER. He does have chronic constipation and is on Linzess for this. In the ER he was found to have a sigmoid volvulus for which Dr. Ozuna took him to the OR for an ex lap. He underwent sigmoid colon resection as well as colostomy creation. He tolerated the procedure well and did not require any blood products. He received Unasyn perioperatively and underwent general anesthesia for his surgery. On my assessment this morning the patient appears to be stable and comfortable. He states he is having a small amount of pain but it is manageable. He was sitting up in bed at the time of my assessment. Exam Narrative Exam Narrative: Colostomy assessment: Colostomy is pink. There is gas and brown thick stool in the colostomy bag. The incision bandage is dry. Const General: no acute distress Nutritional Appearance: well nourished [facility] Head: normocephalic Ears: external ears normal and no periauricular adenopathy General nose exam: nasal mucous membranes and turbinates normal Face and sinus: sinuses nontender Mouth: oropharynx normal and mucous membranes dry Eyes General: appearance normal, both eyes and all related structures Pupils: PERRL Neck Neck: normal visual inspection and no lymphadenopathy Chest Chest: normal inspection of the chest Resp Effort & Inspection: normal respiratory effort Auscultation: clear to auscultation bilaterally, rales (scattered and clear with breathing), no rhonchi and no wheezes Cardio Rate: regular rate Rhythm: regular rhythm Heart Sounds: S1 normal, S2 normal and no murmurs Pulses: radial pulses present bilaterally GI Inspection: normal to inspection Palpation: soft Skin General skin exam: no rashes or lesions noted Neuro General: patient alert, patient awake and patient oriented x3 Extrem General: no clubbing, cyanosis or edema Psych Mental Status: mental status grossly normal Affect: normal affect Attitude: cooperative Most Recent VS/Results Last Vital Signs Temp 36.4 C L 12/26/20 07:45 Pulse 69 12/26/20 11:59 Resp 13 12/26/20 11:59 BP 123/56 L 12/26/20 11:59 Pulse Ox 96 12/26/20 11:59 Laboratory Results - last 24 hr 12/25/20 12/25/20 12/25/20 13:05 13:05 14:55 WBC 6.32 RBC 3.91 L Hgb 12.2 L Hct 36.7 L MCV 93.9 MCH 31.2 MCHC 33.2 RDW 11.9 Plt Count 184 MPV 10.5 Immature Gran % 0.2 Neutrophils % 84.4 Lymphocytes % 9.2 Monocytes % 5.5 Eosinophils % 0.5 Basophils % 0.2 Nucleated RBC % 0 Absolute Neutrophils 5.34 Absolute Lymphocytes 0.58 L Absolute Monocytes 0.35 Absolute Eosinophils 0.03 Absolute Basophils 0.01 VBG Lactate Sodium 140 Potassium 3.7 Chloride 103 Carbon Dioxide 30.0 Anion Gap 7.0 BUN 18 Creatinine 0.6 L Estimated GFR/1.73 m2 >= 60.00 Glucose 127 H Calcium 8.8 Total Bilirubin 0.5 AST 13 L ALT 17 Alkaline Phosphatase 49 Total Protein 6.8 Albumin 3.7 COVID-19 Source Nasal/Nares SARS-CoV-2 (PCR) Negative Patient ABO/Rh Antibody Screen 12/25/20 12/25/20 12/26/20 14:57 14:57 06:11 WBC RBC Hgb Hct MCV MCH MCHC RDW Plt Count MPV Immature Gran % Neutrophils % Lymphocytes % Monocytes % Eosinophils % Basophils % Nucleated RBC % Absolute Neutrophils Absolute Lymphocytes Absolute Monocytes Absolute Eosinophils Absolute Basophils VBG Lactate 0.5 L Sodium 143 Potassium 3.8 Chloride 108 H Carbon Dioxide 29.6 Anion Gap 5.4 BUN 16 Creatinine 0.6 L Estimated GFR/1.73 m2 >= 60.00 Glucose 105 Calcium 8.2 L Total Bilirubin AST ALT Alkaline Phosphatase Total Protein Albumin COVID-19 Source SARS-CoV-2 (PCR) Patient ABO/Rh O Negative Antibody Screen NEGATIVE 12/26/20 06:11 WBC 9.40 D RBC 3.72 L Hgb 11.5 L Hct 35.2 L MCV 94.6 MCH 30.9 MCHC 32.7 RDW 11.9 Plt Count 159 MPV 10.9 Immature Gran % 0.5 Neutrophils % 85.7 Lymphocytes % 7.7 Monocytes % 5.7 Eosinophils % 0.3 Basophils % 0.1 Nucleated RBC % 0 Absolute Neutrophils 8.06 H Absolute Lymphocytes 0.72 L Absolute Monocytes 0.54 Absolute Eosinophils 0.03 Absolute Basophils 0.01 VBG Lactate Sodium Potassium Chloride Carbon Dioxide Anion Gap BUN Creatinine Estimated GFR/1.73 m2 Glucose Calcium Total Bilirubin AST ALT Alkaline Phosphatase Total Protein Albumin COVID-19 Source SARS-CoV-2 (PCR) Patient ABO/Rh Antibody Screen Review of Systems All systems reviewed & are unremarkable except as noted in HPI and below Time spent with patient Time spent in Critical Care: 40 Time spent in Critical care included: Coordination of care, Chart review, Documenting critically ill care, Time at immediate bedside and Discussing critically ill care with other medical staff
--- NOTE | 2020-12-26 14:02 | W.NUTCONSULT ---
Date of service: 12/26/20 Time of Service: 14:02 Nutritional Consult ASSESSMENT: Assessment: 70yo male admitted with bowel obstruction/sigmoid volvulus, now s/p sigmoid resection and colostomy creation. 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 NPO diet order post op and progressing to clear liquids at lunch today. Pt?s current BMI of 23kg/m2 is wnl, with noted 13kg wt loss over the last 10 years. Unable to meet with Mr. Bazzi today to assess if this wt loss has been intentional. Daily estimated nutrition needs: 2396kcals ([id number]), 82-112g protein (1.1-1.5g/kg) and 2396mL fluid (1mL/kcal). Diagnosis: no nutrition-related diagnosis at this time Intervention: Pt to progress to clears at lunch today and advance as tolerated. Recommend slow increase of fiber intake as tolerated. Monitoring/evaluation: Will monitor diet order progression, po intake during post-surgery period. Nicholas Escobar NDTR ? [employer] Time Spent in Nutritional Counseling and Treatment: 10
[2020-12-26 16:12] LABS: Clarity Clear (Clear)
[2020-12-26 16:13] LABS: Bilirubin Negative (Negative); Blood Small (Negative); Glucose Negative (Negative); Ketones Negative (Negative); Leukocyte Esterase Negative (Negative); Nitrite Negative (Negative); Specific Gravity >= 1.030 (1.005-1.025); Urobilinogen 0.2 EU/dL (Up TO 0.2)
[2020-12-26 16:14] LABS: Bacteria Rare HPF (Negative); C & S Indicated? No; Casts Negative LPF (Negative); Crystals Negative HPF (Negative); Epithelial Cells Rare HPF (Negative); Mucus Moderate (Negative); Other Cells Negative (Negative); WBC 0-2 HPF (0-5)
[2020-12-26] MEDS: HYDROmorphone 2 MG/ML VIAL IVP (16:16)
[2020-12-26] MEDS: ARIPiprazole 5 MG TAB 10 MG PO (16:17)
[2020-12-26] MEDS: risperiDONE 0.5 MG TAB PO (16:17)
--- NOTE | 2020-12-26 17:16 | CHAPLAIN ---
uJstus prefers to be called Blake. He has surgery yesterday. He is sitting up in the chair and visiting with this home care provider, Lucia, when I visit. He has a history of a TBI. Blake is very polite and pleasant. He tells me that he's feeling better after his surgery. He used to go to adventism and says he misses it. He has attended [employer], Syn[employer] and [employer] churches in the past. He explains that he grew up in the [facility], but also lives in [place]. He asks for a prayer, and that we pray for his team as well. I will continue to visit.
[2020-12-26] MEDS: Enoxaparin 40 MG/0.4 ML SYR SC (19:14)
[2020-12-26] MEDS: Pantoprazole 40 MG VIAL IVP (19:15)
[2020-12-26] MEDS: Protein Nutritional Supplement 16 GM 1 OUNCE PACKET PO (19:16)
[2020-12-27] VITALS (70 sets, daily range): BP systolic 85–131; BP diastolic 41–70; PULSE 73–100; RESP 11–28; TEMP 36.2–37; O2SAT 89–99
[2020-12-27] MEDS: ACETAMINOPHEN 1,000 MG/100 ML BTL 400 MG IVPB ×2 (03:46→12:16)
[2020-12-27] MEDS: Normal Saline 1,000 ML 125 ML IV (05:24)
[2020-12-27 07:01] LABS: Abs Immature Grans 0.04 10^3/uL (0.0-0.06); Absolute Basophil Count 0.02 10^3/uL (0.0-0.2); Absolute Eosinophil Count 0.03 10^3/uL (0.0-0.7); Absolute Lymphocyte Count 0.76 10^3/uL (1.2-3.4); Absolute Monocyte Count 0.49 10^3/uL (0.1-0.8); Basophils % 0.2; Eosinophils % 0.3; HCT 33.6 % (40.0-50.0); HGB 11.1 g/dL (13.5-17.5); Immature Grans % 0.5; Lymphocytes % 8.8; MCH 31.3 pg (27.0-33.0); MCV 94.6 fL (80-95); MPV 10.9 fL (8.0-11.0); Monocytes % 5.7; Neutrophils % 84.5; Nucleated RBC 0 %; Platelet Count 143 10^3/uL (130-400); RBC 3.55 10^6/uL (4.36-5.78); RDW 11.9 % (11.8-14.1); RDW-SD 41.5 fL; WBC 8.64 10^3/uL (4.4-10.8)
[2020-12-27] MEDS: Protein Nutritional Supplement 16 GM 1 OUNCE PACKET PO ×3 (07:34→20:16)
[2020-12-27] MEDS: HYDROmorphone 2 MG/ML VIAL IVP (07:35)
[2020-12-27] MEDS: Normal Saline Flush 10 ML SYR IVP ×2 (07:36→20:16)
[2020-12-27] MEDS: Albuterol/Ipratropium 3 ML UPD VIAL UPD (07:37)
[2020-12-27] MEDS: FLUoxetine 20 MG CAP PO (07:37)
[2020-12-27 07:43] LABS: BUN 17 mg/dL (7-18); CREATININE 0.6 mg/dL (0.70-1.30); Calcium 8.2 mg/dL (8.5-10.1); Chloride 106 mmol/L (98-107); Glucose 118 mg/dL (74-106); Potassium 3.5 mmol/L (3.5-5.1); Sodium 139 mmol/L (136-145)
--- NOTE | 2020-12-27 08:18 | W.PM.PROGNOT ---
Date of Service Date of service: 12/27/20 Time of Service: 08:18 Assessment and Plan Assessment and plan (1) Sigmoid volvulus: Status: Acute Assessment and plan: POD #2 s/p exploratory laparotomy with sigmoid colon resection and colostomy creation Patient is doing very well. Pain is well controlled and he has been eagerly participating in activities OOB. [facility] [place] he is also doing well with pulmonary toilet. DIET-Will advance diet to post-op soft Stoma is pink and edematous (+) air and soft, thick brown stool. PAIN- medications ordered, Well controlled per patient's report Continue Pulmonary toilet Encourage sitting up right in the bed and sitting in the chair with deep breathing techniques. P// Will transfer to med/surg status today. Continue with activity OOB and pain control Subjective Subjective Interval history since last seen: Patient denies having any pain. He reports that he doesn't feel like he slept well. He was up in the chair yesterday and ambulated with [facility] staff. Exam Const General: cooperative and comfortable Orientation: alert and oriented x3 Resp Effort & Inspection: normal respiratory effort, no audible wheezes and cough GI Palpation: soft, no guarding and nontender Other: Colostomy with (+) air and soft brown stool Bejarano with paloma colored urine. Objective Last Vital Signs Temp 36.6 C 12/27/20 07:49 Pulse 79 12/27/20 08:00 Resp 14 12/27/20 08:00 BP 131/70 12/27/20 08:00 Pulse Ox 93 12/27/20 08:00 Laboratory Results - last 24 hr 12/26/20 12/26/20 12/27/20 06:11 13:15 06:10 WBC RBC Hgb Hct MCV MCH MCHC RDW Plt Count MPV Immature Gran % Neutrophils % Lymphocytes % Monocytes % Eosinophils % Basophils % Nucleated RBC % Absolute Neutrophils Absolute Lymphocytes Absolute Monocytes Absolute Eosinophils Absolute Basophils Sodium 143 139 Potassium 3.8 3.5 Chloride 108 H 106 Carbon Dioxide 29.6 27.0 Anion Gap 5.4 6.0 BUN 16 17 Creatinine 0.6 L 0.6 L Estimated GFR/1.73 m2 >= 60.00 >= 60.00 Glucose 105 118 H Calcium 8.2 L 8.2 L Urine Color Yellow Urine Clarity Clear Urine pH 6.0 Ur Specific [place] >= 1.030 H Urine Protein Negative Urine Ketones Negative Urine Blood Small H Urine Nitrite Negative Urine Bilirubin Negative Urine Urobilinogen 0.2 Ur Leukocyte Esterase Negative Urine RBC 10-20 H Urine WBC 0-2 Ur Epithelial Cells Rare Urine Crystals Negative Urine Bacteria Rare Urine Casts Negative Urine Mucus Moderate Urine Other Negative Ur Culture Indicated? No Urine Glucose Negative 12/27/20 06:10 WBC 8.64 RBC 3.55 L Hgb 11.1 L Hct 33.6 L MCV 94.6 MCH 31.3 MCHC 33.0 RDW 11.9 Plt Count 143 MPV 10.9 Immature Gran % 0.5 Neutrophils % 84.5 Lymphocytes % 8.8 Monocytes % 5.7 Eosinophils % 0.3 Basophils % 0.2 Nucleated RBC % 0 Absolute Neutrophils 7.30 H Absolute Lymphocytes 0.76 L Absolute Monocytes 0.49 Absolute Eosinophils 0.03 Absolute Basophils 0.02 Sodium Potassium Chloride Carbon Dioxide Anion Gap BUN Creatinine Estimated GFR/1.73 m2 Glucose Calcium Urine Color Urine Clarity Urine pH Ur Specific [place] Urine Protein Urine Ketones Urine Blood Urine Nitrite Urine Bilirubin Urine Urobilinogen Ur Leukocyte Esterase Urine RBC Urine WBC Ur Epithelial Cells Urine Crystals Urine Bacteria Urine Casts Urine Mucus Urine Other Ur Culture Indicated? Urine Glucose
[2020-12-27] MEDS: ARIPiprazole 5 MG TAB 10 MG PO (09:38)
[2020-12-27] MEDS: risperiDONE 0.5 MG TAB PO (09:39)
[2020-12-27] MEDS: Tamsulosin 0.4 MG CAPCR PO (09:39)
[2020-12-27] MEDS: Polyethylene Glycol 3350 17 GM PACKET PO (09:39)
[2020-12-27] MEDS: Docusate Sodium 100 MG CAP PO (09:39)
--- NOTE | 2020-12-27 10:00 | PDOC.CMPRO ---
- If Service Date Differs Date of service: 12/27/20 Time of Service: 10:00 Care Management Progress Note S/O: Justus was sitting up in his chair visiting with his caregiver Glenys when CM met with him. He was pleasant and reported that he was doing well but was ready to go for a walk. CM communicated his request to nursing. 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 Ozuna earlier in the day to let her know that prior to his admission the plan was for him to see Dr. Sharma at [facility] and have colonoscopy. Per Dr. Ozuna, Justus will not need a colonoscopy for several months following discharge to heal and she is willing to follow his future GI needs if that is what the his guardian would prefer. She will address with patient and his supports. As for Justus's extraction needs with oral surgery, he will need medical clearance from his PCP after he's discharged and could be discussed at his hospital discharge follow up appointment. In addition, CM started a [employer] order form for Justus and added it to his chart for Dr. Ozuna to complete closer to discharge. A: 70 year old male admitted to [facility] on 12/25/20 for bowel obstruction, Sigmoid Volvulous, after surgical intervention he is s/p sigmoid resection and colostomy creation. P: Anticipate Justus will be discharged home via private vehicle with his caregiver when medically cleared by surgeon. He will need new [facility] RN/PT services and resume [facility] (CM will send discharge info). Justus will also need colostomy supplies through [facility] (order started). Justus will follow up with his community providers and discharge plan of care as prescribed. CM will continue to support discharge planning needs.
--- NOTE | 2020-12-27 10:19 | NUR.NOTE ---
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 PT used IS 10 times. Ranging from 500-1500 RN notified. Nursing Note:
[2020-12-27] MEDS: oxyCODONE 5 MG TAB PO ×2 (12:15→23:53)
[2020-12-27] MEDS: Enoxaparin 40 MG/0.4 ML SYR SC (20:15)
[2020-12-27] MEDS: Acetaminophen 325 MG TAB 650 MG PO (23:53)
[2020-12-28] VITALS (13 sets, daily range): BP systolic 115–130; BP diastolic 64–72; PULSE 73–96; RESP 16–20; TEMP 36–36.8; O2SAT 93–98
--- NOTE | 2020-12-28 08:09 | W.PM.PROGNOT ---
Documented by User: ELIECER Taylor 12/28/20 08:11 Date of Service Date of service: 12/28/20 Time of Service: 08:09 Assessment and Plan Assessment and plan (1) Sigmoid volvulus: Status: Acute Assessment and plan: POD #3 s/p exploratory laparotomy with sigmoid colon resection and colostomy creation DIET-Tolerating post-op diet Stoma is pink and edematous (+) air and soft, thick brown stool. PAIN- medications ordered, Well controlled per patient's report Continue Pulmonary toilet Encourage sitting up right in the bed and sitting in the chair with deep breathing techniques. Continue with oral hygiene. P// Continue with education and caregiver training with colostomy care. D/C home today or tomorrow. Subjective Subjective Interval history since last seen: Patient reports his abdominal pain comes and goes but has mostly been feeling well. He expresses that he is eager to ambulate this morning. Exam Const General: cooperative and comfortable Orientation: alert and oriented x3 Resp Effort & Inspection: normal respiratory effort, no audible wheezes and cough GI Palpation: soft, no guarding and nontender Other: Colostomy with (+) air and soft brown stool Objective Last Vital Signs Temp 36.2 C L 12/27/20 16:30 Pulse 77 12/27/20 23:26 Resp 17 12/27/20 15:01 BP 106/46 L 12/27/20 23:26 Pulse Ox 96 12/27/20 23:26 Documented by User: Carie Zeng DO 12/28/20 21:46 Assessment and Plan Assessment and plan (1) Sigmoid volvulus: Status: Acute Assessment and plan: -Patient seen and examined. Agree with above. -We worked on colostomy teaching and cares with his caregivers. His stoma from the 7:00 to the 9 o'clock position shows some necrosis. I do not think it is full-thickness. But he is going to have some sloughing of the mucosa. He has a lot of edema and swelling and we discussed how his stoma will change as healing progresses, and so we may need different size bags, appliances etc. -He no longer needs to be on all the stool softeners. If he is taking narcotics he may need to take some MiraLAX as needed. I am going to stop the Dulcolax and the Linzess. -Continue protein supplementation -Walking to tolerance -We will have home RN and home PT. Otherwise he is doing well and we will plan on discharge in a.m.
[2020-12-28] MEDS: ARIPiprazole 5 MG TAB 10 MG PO (08:35)
[2020-12-28] MEDS: Normal Saline Flush 10 ML SYR IVP ×2 (08:35→19:14)
[2020-12-28] MEDS: FLUoxetine 20 MG CAP PO (08:35)
[2020-12-28] MEDS: risperiDONE 0.5 MG TAB PO (08:36)
[2020-12-28] MEDS: oxyCODONE 5 MG TAB PO (08:36)
[2020-12-28] MEDS: Protein Nutritional Supplement 16 GM 1 OUNCE PACKET PO ×3 (08:36→19:14)
[2020-12-28] MEDS: Docusate Sodium 100 MG CAP PO (08:36)
[2020-12-28] MEDS: Tamsulosin 0.4 MG CAPCR PO (08:37)
[2020-12-28] MEDS: Acetaminophen 325 MG TAB 650 MG PO ×3 (08:37→19:13)
[2020-12-28] MEDS: Esomeprazole 40 MG CAPCR PO (08:37)
--- NOTE | 2020-12-28 08:54 | PDOC.CMPRO ---
- If Service Date Differs Date of service: 12/28/20 Time of Service: 08:54 Care Management Progress Note S/O: Justus was sitting up in his chair visiting with his guardian Sushma when CM met with him. Sushma received colostomy education today, Glenys will receive education later today. The plan is for Justus to be discharged tomorrow. [facility] was notified and colostomy orders were sent to [facility], patient will also be discharged with a small allotment of supplies. Sushma will ask Tamy from [facility] to call to go over admission and discharge details so Tamy can connect Justus with the appropriate services on their end. A: 70 year old male admitted to [facility] on 12/25/20 for bowel obstruction, Sigmoid Volvulous, after surgical intervention he is s/p sigmoid resection and colostomy creation. P: Anticipate Justus will be discharged home via private vehicle with his caregiver when medically cleared by surgeon. He will need new [facility] RN/PT/OT services (CM notified [facility]) and resume [facility]. Justus will also need colostomy supplies through [facility] (CM faxed). Justus will follow up with his community providers and discharge plan of care as prescribed. will continue to support discharge planning needs.
--- NOTE | 2020-12-28 13:27 | NUR.NOTE ---
Sushma (caregiver) brought in patient a soft blanket. Nursing Note:
--- NOTE | 2020-12-28 15:41 | NUR.NOTE ---
The plan is to D/C the patient on 12/29. [employer] supplies have been ordered on 12/28 for the patient. There is an ostomy education kit and 2 days of supplies to send home in the patient's room. I reviewed the kit and emptying/changing instructions with Sushma (Guardian). Lucia (caregiver) is coming in at 1530 (12/28) to practice changing/emptying the ostomy. The caregiver had sever D/C questions and I addressed them with Azucena. 1. The patient is okay to have capsuled medication. The medication will still absorb 2. The patient should shower with the incision and ostomy covered (sponge bath/sprayer best) until the moreno are removed 3. Gas X will not reduce the flatus in the bag - burp the bag as needed 4. Dr. Zeng will come check the dressing on 12/28 and likely replace the mepilex or leave JUSTIN.Nursing Note:
--- NOTE | 2020-12-28 16:53 | CHAPLAIN ---
Justus Blake was happy to tell me that he's being discharged tomorrow. He was up in his chair and had a visitor, one of his caregivers possibly. Blake remains pleasant and seems comfortable being here.
--- NOTE | 2020-12-28 16:56 | DSE_ITS ---
Date of service: 12/29/20 Time of Service: 09:00 DS: Diagnosis Discharge Diagnosis (1) Sigmoid volvulus: Status: Acute Discharge Plan Disposition Patient Disposition: HOME Condition: Serious Discharge Details Reason For Visit: Sigmoid Volvulous Admit Date/Time: 12/25/20 16:34 Admit Provider: Alicia Ozuna Attending Provider: Alicia Ozuna Primary Care Provider: Shon Larios Home Meds and New Rx's Prescriptions: New polyethylene glycol 3350 [Miralax] 17 gram powder in packet 17 g PO DAILY PRN (Reason: constipation) Qty: 1 RF: 12 oxycodone 5 mg tablet 5 mg PO Q6H PRNQty: 14 RF: 0 Continued fluoxetine 20 mg/5 mL (4 mg/mL) solution 20 mg PO DAILY RF: 0 solifenacin [Vesicare] 10 mg tablet 10 mg PO DAILY RF: 0 tamsulosin 0.4 mg capsule 0.4 mg PO DAILY RF: 0 esomeprazole magnesium [Nexium] 40 mg capsule,delayed release(DR/EC) 40 mg PO DAILY RF: 0 ketoconazole 2 % cream 1 applic topical DAILY RF: 0 risperidone [Risperdal] 0.5 mg tablet 0.5 mg PO DAILY RF: 0 aripiprazole [Abilify] 10 mg tablet 10 mg PO DAILY RF: 0 fluoxetine 20 mg capsule 20 mg PO DAILY RF: 0 Discontinued Linzess 145 mcg capsule 145 mcg PO DAILY RF: 0 docusate sodium 100 mg capsule 100 mg PO DAILY RF: 0 polyethylene glycol 3350 [Miralax] 17 gram/dose Powder 8 PO DAILY RF: 0 Discharge Instructions Additional Instructions: Keep an ice bag on the incision. 20 minutes on and 20 minutes off. Ice keeps the swelling down and swelling causes pain. Make sure you wrap the ice pack in a towel and don't apply directly to the skin. -If you have moreno or sutures in place, they will be removed at your clinic appointment in 7-10 days. -Do Not remove any steri tapes (white tapes) that cover the incision. If you have steri-tapes on your incision, do not use antibacterial ointment. -Follow-up with Dr. Ozuna 01/01 at -No restrictions on diet -pain meds are very constipating: if you do not move your bowels daily take a dose of OTC milk of magnesia or Miralax -It is ok to shower. No bathe, soaking, swimming or hot tubs. -[facility] should be delivering ostomy supplies by mail on 12/29 -Keep wound clean and dry. Wash incision with soap and water daily. Pat dry, don't rub. Watch for leaks from the colostomy bag. Try to not get stool into the incision. -Protein supplements daily- ensure/boost/etc. You may find that your appetite is smaller. Eat 3-6 small meals throughout the day. It is important to drink lots of water after surgery, 6-10 glasses a day. -If you were given an incentive spirometry (breathing health communications specialist?), continue to do this 10x/hour while awake. -We do want you up walking, at least 5-6 times per day. This is very important to prevent pneumonia and blood clots. You can climb stairs, take them slowly. -No lifting over 5 pounds. This is very important to avoid developing a hernia in your incision. -You may find that you are very tired after surgery- this is normal. -alternate tylenol and ibuprofen for pain control. Tylenol 100mg po every 6- 8hrs. Ibuprofen 600mg po every 6hrs- take w/ food. Oxycodone every 6hrs for pain >7. -home health should be coming out daily to assist w/ ostomy cares and support. -F/u Friday w/ Dr. Zeng at 1pm Stand Alone Forms: Nursing Discharge Form Referrals: Carie Zeng DO [OSTEOPATHIC DOCTOR] - 01/01/21 1:00 pm Activity:: walk to tolerance Equipment/Supplies:: Walker Diet:: Normal Diet DS: Summary Time Spent with Patient providing and/or coordinating discharge services: Greater than 30 minutes Status at Discharge Functional status at discharge: independent ambulation Overall status at discharge: patient is progressing back to baseline Mental Status: mental status grossly normal Speech and Movement: delayed speech Mood: congruent mood Affect: normal affect Exam Psych Mental Status: mental status grossly normal Speech and Movement: delayed speech Mood: congruent mood Affect: normal affect DS: Data Vitals/I&O Vitals and I&O: Vital Signs Temperature 36.2 C L 12/28/20 15:41 Temperature Source Temporal Artery Scan 12/28/20 15:41 Pulse 96 H 12/28/20 15:35 Pulse Rhythm Regular 12/28/20 00:00 Pulse 91 H 12/27/20 16:26 Respiratory Rate 20 12/28/20 15:41 Respiratory Effort Non-Labored 12/28/20 15:30 Respiratory Depth Shallow 12/28/20 15:30 Respiratory Pattern Normal 12/28/20 15:30 Blood Pressure 115/65 12/28/20 15:35 Blood Pressure Mean 77 12/28/20 15:35 Blood Pressure Position Sitting 12/28/20 08:39 Pulse Oximetry 96 12/28/20 15:41 Respiratory End-tidal CO2 44 12/25/20 18:45 Oxygen Delivery Method Room Air 12/28/20 15:41 Oxygen Flow Rate 0 12/28/20 15:41 Pain Level 0 12/27/20 03:48 Comment 12/28/20 15:41 Intake & Output 12/27/20 12/28/20 12/28/20 23:59 11:59 23:59 Intake Total 460 / 2718.333 580 / 1030 450 / 1030 Output Total 915 / 1840 750 / 1050 300 / 1050 Balance -455 / 878.333 -170 / -20 150 / -20 Weight 74.8 kg Intake: IV 100 / 1458.333 20 / 20 Oral 360 / 1260 560 / 1010 450 / 1010 Output: Urine 775 / 1600 250 / 550 300 / 550 Stool 140 / 240 500 / 500 Other: Urine Color Light Jyotsna Light Joytsna Light Jyotsna Urine Appearance Clear Clear Clear Comment Foely in place and draining. Patient reports no pain with catheter. Verbal D/C order from Dr. Zeng Stool Size Moderate Stool Characteristics Soft Soft Brown Liquid PFSH Medical History Gastelum esophagus BPH (benign prostatic hyperplasia) Constipation Traumatic brain injury Social History Smoking/Tobacco Use Status: Former Tobacco Use Smoking risk assessment performed?: Yes Alcohol Intake: never Substance use type: does not use Other: Lives with Caregiver Lucia
[2020-12-28] MEDS: Enoxaparin 40 MG/0.4 ML SYR SC (19:12)
--- NOTE | 2020-12-28 21:36 | NUR.NOTE ---
Addendum entered by Carmela August LPN 12/28/20 21:46: Patient does have own CPAP in room and bucket of ostomy care supplies on window to take home with him. Original Note: Nursing Note: Patient brought from ICU 219 to MS 212 at 2123 via wheelchair. Patient is alert and oriented to person, place, time and events. Slightly delayed response due to HX TBI. Patient reports no pain. Lung sounds clear, heart rate regular, vital signs stable. Patient has IV access in hand. Patient has midline incision to abdomen with moreno, covered with mepilex, dressing c/d/i. Has ostomy to left abdomen. +1-2 non pitting edema in BLE. Chronic numbness and tingling to hands and feet. Patient is standby- 1 assist.
--- NOTE | 2020-12-28 21:46 | PDOC.HHF2F ---
Home Health Certification Home Health Certification: 1. Encounter Date and Reason I certify that Justus Bazzi was seen by Carie Zeng on 12/29/20 and that I had a [id number] encounter with this patient that meets the physician face to face encounter requirements. 2. Clinical Findings Supporting Skilled Need and Homebound Status I certify that home health services are medically necessary, include either intermittent correction and/or physical/speech therapy, and that this patient is homebound in that absences from the home require considerable and taxing effort and are infrequent or of short duration, or are attributable to the need to receive medical care. [X] (a) Attached documentation from encounter provides clinical findings supporting skilled need and homebound status (including what assistance patient requires to leave the home). The encounter with the patient was in whole, or in part, for the following medical condition, which is the primary reason for home health care: Sigmoid Volvulous [facility]: for stoma and wound care. Physical Therapy: for gait and strength Speech Therapy: Homebound:yes. pt does not drive 3. Certification and Authentication I certify that I composed the above information based on my clinical judgement relating to this patient's medical condition and, if applicable, clinical findings communicated to me by the NPP or inpatient physician who performed the Home Health Referral. All further orders will be obtained through desmond Larios (Community Based Physician - PCP)
[2020-12-29 07:33] VITALS: BP 132/75; PULSE 80; RESP 14; TEMP 36.8; O2SAT 95
[2020-12-29] MEDS: ARIPiprazole 5 MG TAB 10 MG PO (07:42)
[2020-12-29] MEDS: FLUoxetine 20 MG CAP PO (07:43)
[2020-12-29] MEDS: Esomeprazole 40 MG CAPCR PO (07:43)
[2020-12-29] MEDS: Tamsulosin 0.4 MG CAPCR PO (07:44)
[2020-12-29] MEDS: Protein Nutritional Supplement 16 GM 1 OUNCE PACKET PO ×2 (07:44→14:12)
[2020-12-29] MEDS: risperiDONE 0.5 MG TAB PO (07:44)
--- NOTE | 2020-12-29 08:32 | CMDISCH_ITS ---
- If Service Date Differs Date of service: 12/29/20 Time of Service: 08:32 LACE Index Scoring Tool - Questions: Length of Stay (in days): 4 - 6 Acuity (Admit via E.D.?): Yes E.D. Visits: 1 - Answers: Total Score: 8 Risk of Readmission: Low Risk Care Management Discharge Reason for Hospitalization: Bowel Obstruction, Sigmoid volvulus Discharge Plan: Discharge home with New [facility] SN/PT/OT/ST via private vehicle with caregiver. Ostomy supplies through [facility] will be deivered by mail. Follow up with community providers and discharge plan of care as prescribed. Patient/Family Education Needs: Review discharge instructions, ostomy care, limitations, nutrition and plan to follow up with community providers. ask me three. Services Needed at Discharge: Home Health Care Services ([facility] SN/PT/ST (CM notified HH))
--- NOTE | 2020-12-29 09:53 | W.PM.PROGNOT ---
Date of Service Date of service: 12/29/20 Time of Service: 09:53 Assessment and Plan Assessment and plan (1) Sigmoid volvulus: Status: Acute (2) Bowel obstruction: Status: Acute Qualifiers: Intestinal obstruction type: volvulus Qualified Code(s): K56.2 - Volvulus (3) Anemia: Status: Chronic Qualifiers: Anemia type: unspecified type Qualified Code(s): D64.9 - Anemia, unspecified (4) Acid reflux: Status: Chronic Qualifiers: Esophagitis presence: esophagitis presence not specified Qualified Code(s): K21.9 - Gastro-esophageal reflux disease without esophagitis (5) Colostomy and enterostomy complications: Status: Acute Assessment and plan: -Patient is on a lot of psych meds. He has limited mobility. Is unclear if the constipation caused the volvulus of the volvulus because the constipation. At this point he has had good stool output. I am going to stop all his stool softeners. He can use MiraLAX as needed for constipation -No limitations on diet encourage high-protein diet. -I will follow-up with him on Friday to reevaluate his ostomy. I do not think he requires antibiotics at this point. He may require debriding in the future. -Patient to be DC'd home today. Please see orders. Subjective Subjective Interval history since last seen: Pt is doing well. no headaches. No CP or SOB. no productive cough. no dysuria. no leg pain or swelling. He is tolerating regular diet. There are some dusky areas on his ostomy. They do not appear to be full-thickness. He has no fever or white count. I do not think he requires antibiotics at this time. I will see him on Friday and we will debride that area as needed. He is tolerating regular diet. He has been walking. He is very eager to go home today. Exam Resp Effort & Inspection: normal respiratory effort and able to speak in complete sentences Auscultation: clear to auscultation bilaterally Cardio Palpation: normal PMI Rate: regular rate GI Inspection: incision (c/d/i. ) Palpation: soft Auscultation: normal bowel sounds Objective Last Vital Signs Temp 36.8 C 12/29/20 07:33 Pulse 80 12/29/20 07:33 Resp 14 12/29/20 07:33 BP 132/75 12/29/20 07:33 Pulse Ox 95 12/29/20 07:33
--- NOTE | 2020-12-29 17:28 | CHAPLAIN ---
I visited Blake this morning. He told me that he was moved from ICU to his current room this morning. Plans are for him to return home with his longterm person, Lucia. Blake was teary at times while we were talking, but said he wasn't sure why he was crying. He said he was not nervous or worried about anything when I asked if something was bothering him. He told me a little bit about his stepsiblings, and said he isn't close to them. One has . We talked about how sometimes we can feel closer to people whom we are not related to. I offered a prayer with Blake and again he asked me to pray for his team as well as his friend
== END 2020-12-29 14:18 | disposition home or self-care (01) | DRG 330 ==
LOC: ER 16:11 → ICU 19:29 → MS 12-28 21:53
PROVIDERS: Admitting Provider Surgery; Emergency Provider Emergency Medicine; PCP Neuromusculoskeletal Medicine & OMM; Visit Provider Surgery
PROC: 0DTN0ZZ Resection of Sigmoid Colon, Open Approach (ICD-10-PCS; CPT 49000; principal; 2020-12-25 16:05)
DX: K56.2 Volvulus (principal); J98.11 Atelectasis; K59.09 Other constipation; Z87.820 Personal history of traumatic brain injury; N40.0 Benign prostatic hyperplasia without lower urinary tract symptoms; D12.5 Benign neoplasm of sigmoid colon; Z87.891 Personal history of nicotine dependence; K22.70 Barrett's esophagus without dysplasia; Z20.822 Contact with and (suspected) exposure to COVID-19
CPT/HCPCS: 44143; 36415; 80048; 80053; 86850; 86900; 86901; 87635; 93005; 99223; 99285; J1650; 74177; 81003; 81015; 83605; 85025; 88307; 93010; 94640; 99284; J0131; J0295; J1885; J2001; J2405; J2704; J3010; J3490; J7620

== ENCOUNTER → 2021-01-01 12:39 | Outpatient (BNVA) | payer MEDICARE, MEDICAID, SELFPAY | PROVIDERS: PCP Neuromusculoskeletal Medicine & OMM; Referring Provider Neuromusculoskeletal Medicine & OMM; Visit Provider Surgery | DX: Z48.815 Encounter for surgical aftercare following surgery on the digestive system (principal); B37.2 Candidiasis of skin and nail ==

== ENCOUNTER → 2021-01-09 13:17 | Outpatient (BNVA) | payer MEDICARE, MEDICAID, SELFPAY | PROVIDERS: PCP Neuromusculoskeletal Medicine & OMM; Referring Provider Neuromusculoskeletal Medicine & OMM; Visit Provider Surgery | DX: Z48.815 Encounter for surgical aftercare following surgery on the digestive system (principal) ==

== ENCOUNTER → 2021-01-23 09:30 | Outpatient (BNVA) | payer MEDICARE, MEDICAID, SELFPAY | PROVIDERS: PCP Neuromusculoskeletal Medicine & OMM; Referring Provider Neuromusculoskeletal Medicine & OMM; Visit Provider Surgery | DX: Z48.815 Encounter for surgical aftercare following surgery on the digestive system (principal) ==

== ENCOUNTER → 2021-01-30 14:29 | Outpatient (BNVA) | payer MEDICARE, MEDICAID, SELFPAY | PROVIDERS: PCP Neuromusculoskeletal Medicine & OMM; Referring Provider Neuromusculoskeletal Medicine & OMM; Visit Provider Surgery | DX: Z48.815 Encounter for surgical aftercare following surgery on the digestive system (principal); Z93.3 Colostomy status | CPT/HCPCS: 99212 ==

== ENCOUNTER 2021-02-26 03:23 | Outpatient (CLI) | payer MEDICARE, MEDICAID, SELFPAY ==
[2021-02-26 11:55] LABS: Source Nasal/Nares
[2021-02-26 20:09] LABS: COVID-19 PCR Negative (Negative)
== END 2021-02-26 03:24 | disposition home or self-care (01) ==
LOC: LBO 03:23
PROVIDERS: PCP Neuromusculoskeletal Medicine & OMM; Visit Provider Family Medicine
DX: Z20.822 Contact with and (suspected) exposure to COVID-19 (principal)
CPT/HCPCS: 87635

== ENCOUNTER 2021-02-27 01:17 | Outpatient (CLI) | payer MEDICARE, MEDICAID, SELFPAY ==
--- NOTE | 2021-02-27 07:00 | DI.RAD_ITS ---
Exam(s) RF MODIFIED SPEECH BA SWALLOW EXAM: RF MODIFIED SPEECH BA SWALLOW CLINICAL HISTORY: dysphagia,R13.10 TECHNIQUE: 2D and realtime digital imaging was performed. COMPARISON: No exams were available for comparison FINDINGS: Fluoroscopy was utilized during modified barium swallow. Please see speech pathologist report. IMPRESSION: RADIATION DOSE DELIVERED: deon Espino= 8.02 mGy Total DLP
--- NOTE | 2021-02-27 11:15 | ST.MBS ---
Date of Service Date of service: 02/27/21 Time of Service: 10:30 Modified Barium Swallow Study Findings: Videofluoroscopic Swallowing Evaluation / Modified Barium Swallow Study (VFSE/MBSS) Speech Language Pathology Report HPI: Patient is a 70 y/o M with hx significant for TBI (remote, childhood), GERD, Gastelum?s Esophagus, BRIGID with CPAP at night, HLD, and BPH. Recently underwent colostomy/enterostomy surgery at [facility]. He lives with his caregiver, Lucia, who has noted worsening dysphagia recently. Per Lucia there has been question of Parkinsonism, and he is awaiting consult with [facility] Neurology (switching from [facility]) in order to establish care locally. SUBJECTIVE: Justus arrived on time for today's procedure, accompanied by his caregiver, Lucia, who helped him get set up prior to the exam. Justus recalled participating in an MBSS at [facility] some years ago, and remained agreeable to participation throughout. Upon completion of the exam, Lucia and Justus were both present for education regarding results and recommendations from the exam. OBJECTIVE: Videofluoroscopic Swallow Evaluation (VFSE/MBSS) was conducted in the lateral projection by Speech-Language Pathologist, in collaboration with Radiologist, to evaluate oropharyngeal swallow function. Anatomic view under fluoroscopy: WFL - noting appearance of mild kyphotic posture PO barium contrast trials: Oral barium water soluble contrast was administered as follows: IDDSI Level 0 Varibar thin liquid (40% w/v) IDDSI Level 4 Varibar pudding/pureed/extremely thick (40% w/v) IDDSI Level 7 Regular Solid: 1/2 luisa cracker coated in 3 mL Varibar pudding; 13 mm barium tablet PHYSIOLOGIC FINDINGS Oral Phase 1 Lip Closure: [0-No labial escape] [1-Interlabial escape; no progression to anterior lip] [2-Escape from interlabial space or lateral juncture; no extension beyond marcelino border] [3-Escape progressing to mid-chin] [4-Escape beyond mid-chin] 2 Tongue Control: [0- Cohesive bolus between tongue to palatal seal] [1- Escape to lateral buccal cavity/floor of mouth ] [2- Posterior escape of less than half of bolus] [3- Posterior escape of greater than half of bolus] 3 Bolus Preparation/Mastication: [0- Timely and efficient chewing/mashing] [1- Slowed/prolonged chewing/mashing with complete recollection] [2- Disorganized chewing/mashing with solid pieces of bolus unchewed] [3- Minimal chewing/mashing with majority of bolus unchewed] 4 Bolus Transport/Lingual Motion: [0- Brisk tongue motion] [1- Delayed initiation of tongue motion] [2- Slowed tongue motion; 2 or less AP movements] [3- Repetitive/disorganized tongue motion] [4- Minimal to no tongue motion] 5 Oral residue: [0- Complete oral clearance] [1- Trace residue lining oral structures] [2- Residue collection on oral structures] [3- Majority of bolus remaining; >50% of bolus] [4- Minimal to no clearance] Location: tongue 6 Initiation of pharyngeal swallow: [0- Bolus head at posterior angle of ramus; first hyoid excursion] - puree, solid [1- Bolus head in valleculae] [2- Bolus head at posterior laryngeal surface of epiglottis] - thin liquid [3- Bolus head in pyriform sinus] [4- No visible initiation at any location] Pharyngeal Phase 7 Velar Elevation: [0- No bolus between soft palate and pharyngeal wall ] [1- Trace column of contrast or air between soft palate and pharyngeal wall] [2- Escape to nasopharynx] [3- Escape to nasal cavity] [4- Escape to nostril with/without emission] 8 Laryngeal Elevation: [0- Complete superior movement of thyroid cartilage with complete approximation of arytenoids to epiglottic petiole ] [1- Partial superior movement of thyroid cartilage with partial approximation of arytenoids to epiglottic petiole] [2- Minimal superior movement of thyroid cartilage with minimal approximation of arytenoids to epiglottic petiole] [3- No superior movement of thyroid cartilage] 9 Anterior Hyoid Excursion: [0- Complete anterior movement] [1- Partial anterior movement] [2- No anterior movement] 10 Epiglottic Movement: [0- Complete inversion] [1- Partial inversion] - puree/solids [2- Absent/No inversion] - liquids 11 Laryngeal Vestibule Closure: [0- Complete; no air/contrast in laryngeal vestibule] [1- Incomplete; narrow column of air/contrast in laryngeal vestibule] [2- None; wide column of air/contrast in laryngeal vestibule] Penetration [not observed] occurs prior to, during, after initial swallow onset from [current bolus, pharyngeal stasis] 12 Pharyngeal Stripping Wave: [0- Present; complete] [1- Present; diminished] [2- Absent] 13 Pharyngeal Contraction: [DNT; lack of AP view] 14 PES/UES Opening: [0- Complete distension and complete duration; no obstruction of flow] [1- Partial distension and partial duration; partial obstruction of flow] [2- Minimal distension and minimal duration; marked obstruction of flow] [3- No distension with total obstruction of flow] 15 Tongue Base Retraction: [0- No contrast between tongue base and posterior pharyngeal wall] [1- Trace column of contrast between tongue base and posterior pharyngeal wall] [2- Narrow column of contrast between tongue base and posterior pharyngeal wall] [3- Wide column of contrast between tongue base and posterior pharyngeal wall ] [4- No visible posterior motion of tongue base] 16 Pharyngeal residue: [0-Complete pharyngeal clearance] [1- Trace residue within or on pharyngeal structures] [2- Collection of residue within or on pharyngeal structures ] [3- Majority of residue within or on pharyngeal structures ] [4- Minimal to no pharyngel clearance] Location: [N/A] [Diffuse, primarily vallecullae] Lillian Pharyngeal Residue Severity Rating Scale (YPRS) (Brock et al, 2015) Vallecula Residue Severity [I None 0% No residue II Trace 1-5% Trace coating of the mucosa III Mild 5-25% Epiglottic ligament visible IV Moderate 25-50% Epiglottic ligament covered V Severe >50% Filled to epiglottic rim] Pyriform Sinus Residue Severity [I None 0% No residue II Trace 1-5% Trace coating of the mucosa III Mild 5-25% Up wall to quarter full IV Moderate 25-50% Up wall to half full V Severe >50% Filled to aryepiglottic fold] Esophageal Phase 17 Esophageal Clearance Upright Position: [DNT; lack of AP view] NOTE: This study was performed for interpretation only of the oropharyngeal and pharyngoesophageal domains of swallowing. It is not intended to diagnose any other radiologic abnormalities or substitute for a formal esophagram study. Overall 8-Point Penetration-Aspiration Scale (PAS) (Evelina, et al, 1996) 1 - No material enters the airway. 2 - Material enters the airway, remains above the vocal folds, and is ejected from the airway. 3 - Material enters the airway, remains above the vocal folds, and is not ejected from the airway. 4 - Material enters the airway, contacts the vocal folds, and is ejected from the airway. 5 - Material enters the airway, contacts the vocal folds, and is not ejected from the airway. 6 - Material enters the airway, passes below the vocal folds, and is ejected into the larynx or out of the airway. 7 - Material enters the airway, passes below the vocal folds, and is not ejected from the trachea despite effort. 8 - Material enters the airway, passes below the vocal folds, and no effort is made to eject. Clinical Indicator(s) of Prandial/Postprandial Aspiration: [N/A] Trialed Compensatory Swallow Strategies & Outcome: Maneuvers 3-second Preparatory Set - [unsuccessful] Secondary saliva swallow x[2]- [successful] Bolus Modifications Delivery/Alternating Consistencies - Wash with thin liquid [successful] Delivery/Via Straw - [successful] Dysphagia Outcome and Severity Scale (ELMER) [LEVEL 7 - Full PO: normal diet - Normal in all situations LEVEL 6 - Full PO: normal diet - Within functional limits/modified independence LEVEL 5 - Full PO: modified diet and/or independence - Mild dysphagia; Distant supervision, may need 1 diet consistency restricted LEVEL 4 - Full PO: modified diet and/or independence - Mild-moderate dysphagia; Intermittent supervision/cueing, 1 or 2 consistencies restricted LEVEL 3 - Full PO: modified diet and/or independence - Moderate dysphagia; Total assist, supervision, or strategies 2 or more diet consistencies restricted LEVEL 2 - Nonoral nutrition necessary - Moderate-severe dysphagia; Maximum assistance or use of strategies with partial PO only (tolerates at least 1 consistency safely with total use of strategies) LEVEL 1 - Nonoral nutrition necessary - Severe dysphagia; NPO, unable to tolerate any PO safely] IMPRESSIONS: Mild-moderate oral-pharygeal dysphagia, likely chronic; dysphagia presentation likely due to tissue/sensation changes 2/2 GERD, ?presbyphagia, and reduced strength/motility of tongue, reduced pharyngeal motility including anterior hyoid excursion, tongue base retraction, epiglottic inversion, and UES distension. Resulting primarily in pharyngeal>oral stasis of puree & solid textures > liquid textures. Swallow safety is mildly impaired 2/2 potential for aspiration of pharyngeal residue; swallow efficiency is impaired due to reduced pharyngeal clearance and need for secondary swallows. Patient appears to be at low risk for potential aspiration PNA, pulmonary compromise and low risk for malnutrition, dehydration. Diet modification is indicated to promote pharyngeal clearance and decrease risk of choking. Swallow prognosis is good given age, level of support, and pending patient/caregiver training in risk management as outlined, though pending results of neurology consult. Patient appears to be a good candidate for outpatient behavioral swallow rehabilitation. Diet recommendation: IDDSI Level 6-Soft & Bite-Sized Solids or 5-Minced & Moist Solids - avoid dry, tough, or crumbly textures. 0-Thin Liquids Please see further details at www.iddsi.org Risk Management: Behavioral reflux precautions, including upright position during + 90 mins after meals. Small bites, approx [id number] Alternate solids/liquids as able Multiple swallows per bolus (2-3 total) to encourage clearance of pharyngeal stasis/residue Control risk factors for aspiration pneumonia via (a) thorough oral hygiene & (b) maintaining physical mobility as tolerated Specialist referrals: n/a Ancillary tests: n/a PLAN: Reviewed results and recommendations with patient and caregiver based on today's exam. Patient with good airway protection at this time and management strategies likely adequate, though patient is welcome to return for additional treatment with consideration of swallow exercises pending results of upcoming Neurology consult. May consider the following: - Exercises to promote tongue strength and tongue-base retraction - Exercises to promote anterior hyoid excursion, epiglottic inversion, and UES distension Custodial Goals: Patient will tolerate least restrictive diet with use of strategies and without s/sx aspiration. Short Term Goals: Patient will participate in instrumental swallow assessment in order to further characterize dysphagia and identify further appropriate management techniques. GOAL MET 02/27/21 FURTHER TREATMENT TARGETS PENDING PATIENT GOALS OF CARE Follow-up exam: N/A Thank you for allowing me to take part in this patient's care. Please feel free to contact me with any questions/concerns. Carie Webb M.S., [facility]-ACTIVITIES ATTENDANT Time spent: 35 minutes [id number] Motion Fluoroscopy - Modified Barium Swallow Study with ACTIVITIES ATTENDANT Coding CPT Codes MOTION FLUOROSCOPY/SWALLOW - [id number] ([id number])
[2021-02-27] MEDS: Barium Sulfate 81% w/w for Oral Suspension 148 GM BTL 60 GM PO (11:26)
[2021-02-27] MEDS: Barium Sulfate Oral Paste 40% W/V 230 ML TUBE 30 ML PO (11:27)
[2021-02-27] MEDS: Barium Sulfate 700 MG TAB PO (11:29)
== END 2021-02-27 01:37 ==
PROVIDERS: PCP Neuromusculoskeletal Medicine & OMM; Visit Provider Speech-Language Pathologist
DX: R13.12 Dysphagia, oropharyngeal phase (principal); K21.9 Gastro-esophageal reflux disease without esophagitis
CPT/HCPCS: 92611; 74221

== ENCOUNTER → 2021-03-27 08:23 | Outpatient (BNVA) | payer MEDICARE, MEDICAID, SELFPAY | PROVIDERS: PCP Neuromusculoskeletal Medicine & OMM; Referring Provider Neuromusculoskeletal Medicine & OMM; Visit Provider Surgery | DX: Z48.815 Encounter for surgical aftercare following surgery on the digestive system (principal) | CPT/HCPCS: 99212 ==

== ENCOUNTER 2021-06-18 22:32 | Inpatient (IN) | payer MEDICARE, MEDICAID, SELFPAY ==
[2021-06-18] VITALS (13 sets, daily range): BP systolic 106–117; BP diastolic 53–64; PULSE 59–69; RESP 10–18; TEMP 36.7; O2SAT 92–96
--- NOTE | 2021-06-18 23:00 | DI.CT_ITS ---
Exam(s) CT ABDOMEN PELVIS W EXAM: CT ABDOMEN PELVIS W CLINICAL HISTORY: abd pain, 'constipation', ostomy output low. TECHNIQUE: Imaging Protocol: Axial computed tomography images with coronal and sagittal reformatted images were created and reviewed CONTRAST MATERIAL: Intravenous: Omnipaque 100cc Oral: None COMPARISON: CT CT ABDOMEN PELVIS W from 12/25/2020 FINDINGS: VISUALIZED LUNG BASES: No nodules nor pleural effusions evident. Mild benign-appearing increased mar kings noted in the lateral basal segment of the left lower lobe. ABDOMEN: Is a small amount of ascites. The stomach is distended. There are dilated small bowel loops consist ent with element of small bowel obstruction, with small bowel loops measuring up to 4.5 cm. Transiti on point is in the right lower quadrant region. Left-sided colostomy is noted. LIVER: There are no focal hepatic lesions evident . GALLBLADDER/BILIARY: No obvious gallbladder pathology. CBD is not dilated. PANCREAS: No evidence of pancreatic mass nor dilatation of the pancreatic duct. SPLEEN: Spleen is not enlarged. No obvious intrasplenic lesions. Splenic and portal veins are paten t. ADRENALS: There are no significant adrenal masses. KIDNEYS:There is a small benign cyst in the anterior cortex of the left kidney. No solid renal katharina s. No calculi nor hydronephrosis.. ABDOMINAL AORTA: Abdominal aorta is not enlarged. LYMPH NODES:There is no retroperitoneal nor paraaortic adenopathy. ABDOMINAL WALL: No evidence of significant anterior abdominal wall nor inguinal hernia. GI: Small bowel obstruction. Ascites evident. No free air. No abscess evident. Left-sided colostomy noted. Oversewn rectosigmoid PELVIS: GI: No evidence of appendicitis.No evidence of sigmoid diverticulitis. LYMPH NODES: There is no intrapelvic nor inguinal adenopathy. REPRODUCTIVE: Prostate is not enlarged. URINARY BLADDER: No calculi nor obvious masses evident OSSEOUS: No significant osseous lesions. No fractures IMPRESSION: 1. There is distal small bowel obstruction with a transition point appearing to be in the right lower quadrant. There is some mesenteric edema and mild ascites. There is, however, no evidence of free air and no evidence of abscess. 2. Left-sided colostomy noted. 3. Other findings as above. RADIATION DOSE DELIVERED: 852.31mGy.cm Total DLP DATA REPOSITORY: All CT scans at this facility are submitted to the National Radiology Data Registry (NRDR) Dose Index Registry (DIR) with the [employer] (ACR). RADIATION OPTIMIZATION: All CT scans at this facility use at least one of these dose optimization te chniques: automated exposure control; mA and/or kV adjustment per patient size (includes targeted exa ms where dose is matched to clinical indication); or iterative reconstruction.
--- NOTE | 2021-06-18 23:04 | W.ED.GENAD ---
Discharge Plan Disposition Patient Disposition: [facility] INPATIENT Condition: Improving Discharge Details Chief Complaint: Abd Prob Clinical Impression: Bowel obstruction Primary Care Provider: Shon Larios ED Provider: Nate Chavez Home Meds and New Rx's Prescriptions: No Action solifenacin [Vesicare] 10 mg tablet 10 mg PO DAILY 0RF tamsulosin 0.4 mg capsule 0.4 mg PO DAILY 0RF esomeprazole magnesium [Nexium] 40 mg capsule,delayed release(DR/EC) 40 mg PO DAILY 0RF ketoconazole 2 % cream 1 applic topical DAILY 0RF risperidone [Risperdal] 0.5 mg tablet 0.5 mg PO DAILY 0RF aripiprazole [Abilify] 10 mg tablet 10 mg PO DAILY 0RF desmopressin 0.2 mg tablet 0.4 mg PO .evening 0RF nystatin 100,000 unit/gram powder 1 applic topical BID Qty: 60 6RF Rx Instructions: prn yeast fluoxetine 20 mg capsule 20 mg PO DAILY 0RF Label Comments: TAKE ONE CAPSULE BY MOUTH EVERY DAY oxycodone 5 mg tablet 5 mg PO Q6H PRNQty: 14 0RF Medical Decision Making 70-year-old male who lives in [facility] with his home care provider. He makes his own decisions. He previously has had bowel obstruction and placement of colostomy. Tonight after dinner he developed lower abdominal pain and cramping with associated nausea. Mild bloating. He has had some decreased ostomy output and harder stools, but this has not been stable for him. No fever. Immunized against COVID-19. Presents to the ER afebrile with blood pressure 156, pulse in the mid 60s. He is awake alert and interactive, oxygenating normally. His exam reveals tympany of the abdomen with mild to moderate tenderness. Differential diagnosis would include bowel obstruction, dehydration, constipation constipation. IV access established, patient given parenteral medications, fluids, and referred for CT imaging. Laboratories show white count 5, hematocrit 38, platelets 212. Venous lactate 0.7. Electrolytes unremarkable, BUN 18 with creatinine of 1.7. Magnesium slightly low at 1.4 and supplemented in the ER. CT images: There is evidence of small bowel obstruction with transition point in the right lower quadrant. See formal report. No evidence of perforation. Case discussed with Dr. Ozuna and we will proceed with admission. We will hold on NG tube at this time given patient's improvement. HPI General Mode of arrival: ambulatory. Date/Time Provider Initiated Documentation: 06/18/21 22:50. Limitations to Documentation: no limitations. Information obtained by: patient. History of Present Illness 70 year old M presents to the emergency department with the chief complaint of Abdominal pain and bloating after dinner, presents with caregiver, described as moderate, Quality is described as dull, and is localized to the abdomen. Patient reports no radiation. and it has been intermittent. improves with No relieving factors improve symptom(s), Eating worsens symptoms . Patient notes loss of appetite and other (Small amount of emesis, no food); denies fever/chills. Patient did receive the following treatments prior to arrival, none Related Data Home Medications Medication Instructions Recorded Confirmed aripiprazole 10 mg tablet (Abilify) 10 mg PO DAILY 12/25/20 03/27/21 esomeprazole magnesium 40 mg 40 mg PO DAILY 12/25/20 03/27/21 capsule,delayed release (Nexium) fluoxetine 20 mg capsule 20 mg PO DAILY 12/25/20 03/27/21 ketoconazole 2 % topical cream 1 applic TOPICAL DAILY 12/25/20 03/27/21 risperidone 0.5 mg tablet 0.5 mg PO DAILY 12/25/20 03/27/21 (Risperdal) solifenacin 10 mg tablet (Vesicare) 10 mg PO DAILY 12/25/20 03/27/21 tamsulosin 0.4 mg capsule 0.4 mg PO DAILY 12/25/20 03/27/21 oxycodone 5 mg tablet 5 mg PO Q6H PRN #14 tab 12/28/20 03/27/21 desmopressin 0.2 mg tablet 0.4 mg PO .evening tab 01/01/21 03/27/21 nystatin 100,000 unit/gram topical 1 applic TOPICAL BID #60 g 01/01/21 03/27/21 powder Previous Rx's Medication Instructions Recorded oxycodone 5 mg tablet 5 mg PO Q6H PRN #14 tab 12/28/20 nystatin 100,000 unit/gram topical 1 applic TOPICAL BID #60 g 01/01/21 powder Allergies Allergy/AdvReac Type Severity Reaction Status Date / Time No Known Allergies Allergy Verified 06/18/21 22:49 General Stated Complaint: Abd Prob IVET: 3 Review of Systems Narrative: Immunized against COVID-19. No recent fever or illness. Increased ostomy output today, not unusual. 8 systems reviewed and otherwise negative PFSH All Active Problems (Updated 06/19/21 @ 01:32 by Nate Chavez MD) Bowel obstruction (Acute) Dysphagia (Acute) Yeast dermatitis (Acute) 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) Medical History Acid reflux Anemia Atelectasis BPH (benign prostatic hyperplasia) Traumatic brain injury Surgical History S/P left hemicolectomy (~12/25/20) Social History Smoking/Tobacco Use Status: Former Tobacco Use Smoking risk assessment performed?: Yes Alcohol Intake: never Substance use type: does not use Other: Lives with Caregiver Lucia Do you feel safe at home: Yes Do you feel safe in your relationship?: Yes Exam Narrative Exam Narrative: GEN: awake, alert, oriented 3. Pleasant, well groomed, interactive. HEAD: Normocephalic, atraumatic ENT: Mucous membranes moist, oropharynx unremarkable, External ear exam unremarkable EYES: PERRL, EOMI NECK: Full ROM, no VLAD, no menigismus CHEST/RESP: Nontender, clear to auscultation bilateral, no wheeze/rhonchi/rales CARDIOVASCULAR: RRR, no murmur, rub shagufta. 2+ Rad pulse bilateral ABDOMEN: Soft, mild tympany present, tender mid to lower abdomen. Ostomy site clean dry and intact, no mass. + High-pitched bowel sounds EXT: Full ROM, no edema, no rash Neuro: Grossly normal neurologic exam, conversant, interactive. Psych: Speech fluent, thoughts congruent, affect normal Course Vital Signs Vital signs: Vital Signs Temperature 36.7 C 06/18/21 22:44 Pulse 67 06/18/21 22:44 Respiratory Rate 18 06/18/21 22:44 Blood Pressure 109/56 L 06/18/21 22:44 Pulse Oximetry 94 06/18/21 22:44 Temperature 36.7 C 06/18/21 22:44 Temperature Source Skin 06/18/21 22:44 Pulse 67 05/02/22 22:44 Respiratory Rate 18 06/18/21 22:44 Respiratory Effort 06/18/21 22:47 Blood Pressure 109/56 L 06/18/21 22:44 Blood Pressure Position Sitting 06/18/21 22:44 Pulse Oximetry 94 06/18/21 22:44 Oxygen Delivery Method Room Air 06/18/21 22:44 Oxygen Flow Rate 0 06/18/21 22:44 Pain Level 4 06/18/21 22:44
[2021-06-18] MEDS: Normal Saline 1,000 ML 125 ML IV (23:07)
[2021-06-18] MEDS: Ondansetron 4 MG/2 ML VIAL IVP (23:07)
[2021-06-18 23:15] LABS: Lactate 0.7 mmol/L (0.6-1.4)
[2021-06-18] MEDS: ACETAMINOPHEN 1,000 MG/100 ML BTL 400 MG IVPB (23:21)
[2021-06-18 23:25] LABS: Lipase 34 U/L (73-393)
[2021-06-18 23:28] LABS: Abs Immature Grans 0.04 10^3/uL (0.0-0.06); Absolute Basophil Count 0.01 10^3/uL (0.0-0.2); Absolute Eosinophil Count 0.09 10^3/uL (0.0-0.7); Absolute Lymphocyte Count 0.95 10^3/uL (1.2-3.4); Absolute Monocyte Count 0.25 10^3/uL (0.1-0.8); Absolute Neutrophil Count 4.27 10^3/uL (1.2-6.7); Basophils % 0.2; Eosinophils % 1.6; HGB 12.3 g/dL (13.5-17.5); Immature Grans % 0.7; Lymphocytes % 16.9; MCH 30.4 pg (27.0-33.0); MCHC 32.4 % (32.0-36.0); MCV 94 fL (80-95); MPV 10.3 fL (8.0-11.0); Monocytes % 4.5; Neutrophils % 76.1; Platelet Count 212 10^3/uL (130-400); RBC 4.04 10^6/uL (4.36-5.78); RDW 12.3 % (11.8-14.1); RDW-SD 42.9 fL; WBC 5.61 10^3/uL (4.4-10.8)
[2021-06-18 23:39] LABS: ALT 19 U/L (16-63); AST 16 U/L (15-37); Albumin 3.6 g/dL (3.4-5.0); Alkaline Phosphatase 54 U/L (46-116); Anion Gap 8.2 mmol/L (3-11); BUN 18 mg/dL (7-18); Bilirubin, Total 0.5 mg/dL (0.2-1.0); CO2 29.8 mmol/L (21.0-32.0); CREATININE 0.7 mg/dL (0.70-1.30); Calcium 8.8 mg/dL (8.5-10.1); Chloride 101 mmol/L (98-107); Glucose 144 mg/dL (74-106); Magnesium 1.4 mg/dL (1.8-2.4); Potassium 3.8 mmol/L (3.5-5.1); Sodium 139 mmol/L (136-145); Total Protein 6.8 g/dL (6.4-8.2); Troponin I < 50 ng/L (<or=60)
[2021-06-18] MEDS: Omnipaque 350 MG/ML 100 ML BTL IJ (23:44)
[2021-06-18] MEDS: Normal Saline Flush 10 ML SYR IVP (23:45)
[2021-06-19] VITALS (31 sets, daily range): BP systolic 106–146; BP diastolic 55–83; PULSE 60–80; RESP 9–20; TEMP 36.4–38; O2SAT 91–98
--- NOTE | 2021-06-19 | DI.RAD_ITS ---
Exam(s) XR PORTABLE CHEST AP EXAM: XR PORTABLE CHEST AP CLINICAL HISTORY: fever/possible aspiration. TECHNIQUE: 2D digital imaging was performed. COMPARISON: CT CT ABDOMEN PELVIS W from 06/18/2021 FINDINGS: Single AP portable view. Heart size is upper normal. The mediastinum is not widened. Right lung is clear. There are mild increased markings in left lower lobe retrocardiac region. No p leural effusions. NG tube is noted. Its distal tip is not included in the field of view but is poss ibly not adequately into the stomach. IMPRESSION: In G-tube requires better visualization. Recommend x-ray to ensure that it is indeed in the stomach and not at the GE junction in this patient has a small bowel obstruction. Appears to be developing infiltrate left lower lobe retrocardiac region. This is the posterior basal segment of the left lower lobe. There are no obvious pleural effusions DATA REPOSITORY: RADIATION DOSE DELIVERED: All CT scans at this facility use at least one of these dose optimization techniques: automated exposure control; mA and/or kV adjustment per patient size (includes targeted e xams where dose is matched to clinical indication); or iterative reconstruction.
[2021-06-19] MEDS: MAGNESIUM SULFATE 2 GM/50 ML BAG IVPB ×2 (00:28→15:34)
--- NOTE | 2021-06-19 01:17 | DI.VRAD_ITS ---
Addendum created by Vickey Romero MD on 06/19/2021 1:18:42 AM EDT: Addendum: THIS REPORT CONTAINS FINDINGS THAT MAY BE CRITICAL TO PATIENT CARE. The findings were verbally communicated via telephone conference with SANDY GRAHAM at 1:18 AM EDT on 06/19/2021. The findings were acknowledged and understood. Initial report created on 06/19/2021 1:17:04 AM EDT: PROCEDURE INFORMATION: Exam: CT Abdomen And Pelvis With Contrast Exam date and time: 06/18/2021 11:58 PM Age: 70 years old Clinical indication: Abdominal pain; Generalized; Prior surgery; Surgery date: 1-6 months; Surgery type: Left hemicolectomy in December; Patient HX: Abd pain, 'constipation', ostomy output low TECHNIQUE: Imaging protocol: Computed tomography of the abdomen and pelvis with contrast. Total images: 1234 Radiation optimization: All CT scans at this facility use at least one of these dose optimization techniques: automated exposure control; mA and/or kV adjustment per patient size (includes targeted exams where dose is matched to clinical indication); or iterative reconstruction. Contrast material: OMNIPAQUE 350; Contrast volume: 100 ml; Contrast route: INTRAVENOUS (IV); COMPARISON: CT ABDOMEN PELVIS W 12/25/2020 2:30 PM FINDINGS: Lungs: Bandlike atelectasis in the left base. Heart: Heart size normal. Diaphragm: Small hiatal hernia. Mild wall thickening in the distal esophagus suspicious for mild esophagitis. Liver: Normal contour. 3 mm probable cyst in the right hepatic lobe which does not require further assessment. Question slight intrahepatic biliary ductal dilatation. Gallbladder and bile ducts: The gallbladder is partially contracted but otherwise unremarkable. Nondilated common bile duct. Pancreas: Mild pancreatic atrophy without acute abnormality. No pancreatic ductal dilatation. Spleen: Normal. No splenomegaly. Adrenal glands: Normal. No adrenal mass. Kidneys and ureters: No acute abnormalities. No hydronephrosis or hydroureter. No urinary tract stones are identified. There are bilateral renal cortical lesions demonstrating low density values and circumscribed margins favoring simple renal cysts. No further imaging evaluation is required. Stomach and bowel: The stomach is moderately distended with food and fluid content. Dilated mid abdominal small bowel loops measuring up to 4.7 cm diameter, with adjacent mesenteric stranding/edema and a transition to nondilated distal small bowel loops in the right lower quadrant consistent with small bowel obstruction, with transition point in the right lower quadrant just to the right of midline on axial series 5, images 470-562. No evidence of perforation or abscess. Moderate stool and gas in the colon, with left lower quadrant colostomy demonstrating no gross associated complication. Snehal's pouch unremarkable. Appendix: The appendix is normal in caliber and demonstrates no evidence of appendicitis. Intraperitoneal space: Small volume ascites in the pelvis. No free air. Vasculature: Mild atherosclerotic aortoiliac calcification without aneurysm. Lymph nodes: There are few borderline enlarged aortocaval nodes measuring up to 8 mm short axis, nonspecific. Urinary bladder: The urinary bladder is largely contracted without gross abnormality. Reproductive: Unremarkable as visualized. Bones/joints: No acute osseous abnormalities. Osteopenia. Moderate disc degenerative changes L4-L5 and L1-L2. Soft tissues: No acute soft tissue abnormalities. IMPRESSION: 1. There is evidence of small bowel obstruction with transition point in the right lower quadrant. Moderate associated mesenteric edema but no evidence of perforation or abscess. 2. Left lower quadrant colostomy without gross complication. 3. Moderate colonic gas and stool. 4. Small hiatal hernia with mild wall thickening in the distal esophagus which may indicate mild esophagitis. 5. Small volume ascites. No free air. 6. Borderline enlarged aortocaval nodes, nonspecific. 7. Additional nonemergent findings detailed above. Dictated and Authenticated by: Vickey Romero MD. Ordering:MICHELLE Sullivan MD
[2021-06-19 02:01] LABS: Source Nasal/Nares
[2021-06-19 02:20] LABS: Troponin I < 50 ng/L (<or=60)
[2021-06-19 02:39] LABS: COVID-19 PCR Negative (Negative)
[2021-06-19] MEDS: Ondansetron 4 MG/2 ML VIAL IVP (03:58)
[2021-06-19] MEDS: Normal Saline Flush 10 ML SYR IVP (03:58)
[2021-06-19 04:35] LABS: Bilirubin Negative (Negative); Blood Negative (Negative); Clarity Clear (Clear); Glucose Negative (Negative); Ketones Negative (Negative); Leukocyte Esterase Negative (Negative); Nitrite Negative (Negative); Urobilinogen 0.2 EU/dL (Up TO 0.2)
[2021-06-19] MEDS: Lidocaine 2% Jelly 11 ML SYR UR (04:47)
[2021-06-19] MEDS: Normal Saline 1,000 ML 125 ML IV ×2 (05:53→13:21)
--- NOTE | 2021-06-19 09:23 | W.PM.HP.N ---
Date of service: 06/19/21 Time of Service: 08:00 Assessment and Plan Assessment and plan (1) Bowel obstruction: Status: Acute Assessment and plan: No Flatus or stool noted in colostomy Abdomen soft, (+) tympany noted with percussion. Continue NPO Patient subjectively feels improved. Denies having any pain No nausea or vomiting Will continue with medical management at this time with bowel rest and pain control. Patient seen and examined. Agree with above. He has slight amount of contents out of his ostomy this afternoon. He is abdomen is still mildly distended. His bowel sounds are high-pitched and hyperactive. I discussed his current condition with his guardian and with his caregivers. I think at time of discharge we will plan on having them doing MiraLAX daily instead of every other day. And then as needed evening dose if he does not have a bowel movement during the day. He does have a colostomy so we will not need to worry about incontinence skin breakdown. I think it would be better to keep his stools more on the looser side. He was trying a fever earlier today. He did have quite a bit of vomiting at home. Going to check a chest x-ray. Patient was encouraged to get up and walk. Case was discussed with nursing as well (2) Dysphagia: Status: Acute History of Present Illness Narrative: 70 y/o with a history of medel's esophagus and bowel obstruction s/p exploratory lap with sigmoid colon resection and colostomy creation in 12/2020 presented to the ER with complaints of abdominal pain, cramping and nausea. He also had noted decreased flatus and stool in his colostomy. This morning patient states he is feeling much improved. He denies any pain, nausea or vomiting. [facility] All Active Problems (Updated 06/19/21 @ 01:32 by Nate Chavez MD) Bowel obstruction (Acute) Dysphagia (Acute) Yeast dermatitis (Acute) Medel esophagus (Acute) Colostomy and enterostomy complications (Acute) Medical History Acid reflux Anemia Atelectasis BPH (benign prostatic hyperplasia) Traumatic brain injury Surgical History S/P left hemicolectomy (~12/25/20) Social History Smoking/Tobacco Use Status: Former Tobacco Use Smoking risk assessment performed?: Yes Alcohol Intake: never Substance use type: does not use Other: Lives with Caregiver Lucia Do you feel safe at home: Yes Do you feel safe in your relationship?: Yes Meds Allergies and Home Medications Allergies Allergy/AdvReac Type Severity Reaction Status Date / Time No Known Allergies Allergy Verified 06/18/21 22:49 Home Medications Medication Instructions Recorded Confirmed Type aripiprazole 10 mg tablet (Abilify) 10 mg PO DAILY 12/25/20 06/19/21 History esomeprazole magnesium 40 mg 40 mg PO DAILY 12/25/20 06/19/21 History capsule,delayed release (Nexium) fluoxetine 20 mg capsule 20 mg PO DAILY 12/25/20 06/19/21 History ketoconazole 2 % topical cream 1 applic TOPICAL DAILY 12/25/20 06/19/21 History risperidone 0.5 mg tablet 0.5 mg PO DAILY 12/25/20 06/19/21 History (Risperdal) solifenacin 10 mg tablet (Vesicare) 10 mg PO DAILY 12/25/20 06/19/21 History tamsulosin 0.4 mg capsule 0.4 mg PO DAILY 12/25/20 06/19/21 History desmopressin 0.2 mg tablet 0.4 mg PO .evening tab 01/01/21 06/19/21 History melatonin 3 mg tablet 3 mg PO DAILY 06/19/21 06/19/21 History Exam Const General: cooperative, healthy appearing and comfortable Orientation: alert and oriented x3 Resp Effort & Inspection: normal respiratory effort, no audible wheezes and no cough GI Inspection: distended Palpation: soft, no guarding and nontender Percussion: tympanic to percussion Results Labs Result diagrams: 06/18/21 22:50 06/18/21 23:10 Labs: Laboratory Results - last 24 hr 06/18/21 06/18/21 06/18/21 22:50 23:10 23:10 WBC 5.61 RBC 4.04 L Hgb 12.3 L Hct 38.0 L MCV 94 MCH 30.4 MCHC 32.4 RDW 12.3 Plt Count 212 MPV 10.3 Immature Gran % 0.7 Neutrophils % 76.1 Lymphocytes % 16.9 Monocytes % 4.5 Eosinophils % 1.6 Basophils % 0.2 Nucleated RBC % 0.0 Absolute Neutrophils 4.27 Absolute Lymphocytes 0.95 L Absolute Monocytes 0.25 Absolute Eosinophils 0.09 Absolute Basophils 0.01 VBG Lactate 0.7 Sodium 139 Potassium 3.8 Chloride 101 Carbon Dioxide 29.8 Anion Gap 8.2 BUN 18 Creatinine 0.7 Estimated GFR/1.73 m2 >= 60.00 Glucose 144 H Calcium 8.8 Magnesium 1.4 L Total Bilirubin 0.5 AST 16 ALT 19 Alkaline Phosphatase 54 Troponin I < 50 Total Protein 6.8 Albumin 3.6 Lipase Urine Color Urine Clarity Urine pH Ur Specific Bourg Urine Protein Urine Ketones Urine Blood Urine Nitrite Urine Bilirubin Urine Urobilinogen Ur Leukocyte Esterase Urine Glucose COVID-19 Source SARS-CoV-2 (PCR) 06/18/21 06/19/21 06/19/21 23:10 01:30 01:55 WBC RBC Hgb Hct MCV MCH MCHC RDW Plt Count MPV Immature Gran % Neutrophils % Lymphocytes % Monocytes % Eosinophils % Basophils % Nucleated RBC % Absolute Neutrophils Absolute Lymphocytes Absolute Monocytes Absolute Eosinophils Absolute Basophils VBG Lactate Sodium Potassium Chloride Carbon Dioxide Anion Gap BUN Creatinine Estimated GFR/1.73 m2 Glucose Calcium Magnesium Total Bilirubin AST ALT Alkaline Phosphatase Troponin I < 50 Total Protein Albumin Lipase 34 Urine Color Urine Clarity Urine pH Ur Specific Bourg Urine Protein Urine Ketones Urine Blood Urine Nitrite Urine Bilirubin Urine Urobilinogen Ur Leukocyte Esterase Urine Glucose COVID-19 Source Nasal/Nares SARS-CoV-2 (PCR) Negative 06/19/21 03:50 WBC RBC Hgb Hct MCV MCH MCHC RDW Plt Count MPV Immature Gran % Neutrophils % Lymphocytes % Monocytes % Eosinophils % Basophils % Nucleated RBC % Absolute Neutrophils Absolute Lymphocytes Absolute Monocytes Absolute Eosinophils Absolute Basophils VBG Lactate Sodium Potassium Chloride Carbon Dioxide Anion Gap BUN Creatinine Estimated GFR/1.73 m2 Glucose Calcium Magnesium Total Bilirubin AST ALT Alkaline Phosphatase Troponin I Total Protein Albumin Lipase Urine Color Yellow Urine Clarity Clear Urine pH 7.0 Ur Specific Bourg 1.020 Urine Protein Negative Urine Ketones Negative Urine Blood Negative Urine Nitrite Negative Urine Bilirubin Negative Urine Urobilinogen 0.2 Ur Leukocyte Esterase Negative Urine Glucose Negative COVID-19 Source SARS-CoV-2 (PCR) Last Vital Signs Temp 36.9 C 06/19/21 08:16 Pulse 80 06/19/21 08:16 Resp 20 06/19/21 08:16 BP 112/68 06/19/21 08:16 Pulse Ox 95 06/19/21 08:16
[2021-06-19] MEDS: ACETAMINOPHEN 1,000 MG/100 ML BTL 400 MG IVPB (13:15)
--- NOTE | 2021-06-19 14:16 | INITIAL_ITS ---
- If Service Date Differs Date of service: 06/19/21 Time of Service: 14:16 Care Management Initial Assess REASON FOR HOSPITALIZATION:: Small Bowel Obstruction PAST MEDICAL HISTORY/PAST SURGICAL HISTORY:: Medical History . Acid reflux. Anemia. Atelectasis. BPH (benign prostatic hyperplasia). Traumatic brain injury. Surgical History . S/P left hemicolectomy (~12/25/20) PREVIOUS FUNCTIONAL STATUS/SOCIAL/FAMILY SUPPORTS:: Justus lives in [place], [place] with his home provider Lucia Hammond. His guardian is Sushma Kirk. He has a history of a TBI and requires assistance with his ADL's. Justus ambulates independently and doesn't require any assistive devices. Additionally, Justus has a nurse case management through [employer] services and Glenys anticipates that they will provide additional support services in the home if needed. CURRENT FUNCTIONAL STATUS:: Blake is lying in bed with his home provider and guardian at his bedside, CM let MD know they were waiting to speak with her. ADVANCE DIRECTIVES:: None on file. CM requested guardianship paperwork be provided. Has patient been provided with info about the portal/API?: Yes Did the patient sign up for the portal?: No CODE STATUS:: Full Code INSURANCE COVERAGE / FINANCIAL ISSUES:: Medicaid. Medicare CURRENT HOME/COMMUNITY SERVICES/EQUIPMENT:: Has a home care provider: Glenys Hammond. Has [employer], nurse case management is Tamy Marks PRIMARY CARE PHYSICIAN:: Shon Larios PATIENT/FAMILY EDUCATION NEEDS:: Review discharge and colostomy instructions, limitations and plan to follow up with community providers. ask me three. ANTICIPATED BARRIERS TO DISCHARGE:: None identified. TRANSPORTATION:: Via private vehicle with caregiver. PLAN:: Anticipate Blake will discharge home with Lucia his home provider, when medically ready per MD. Anticipate he will have new VNA services if indicated and transport via private vehicle with Lucia.
[2021-06-19] MEDS: Pantoprazole 40 MG VIAL IVP (16:49)
[2021-06-19] MEDS: Desmopressin 0.2 MG TAB 0.4 MG PO (21:10)
[2021-06-20] MEDS: Normal Saline 1,000 ML 100 ML IV ×3 (01:26→19:58)
[2021-06-20 06:50] LABS: HCT 36.5 % (40.0-50.0); HGB 11.9 g/dL (13.5-17.5); MCH 30.5 pg (27.0-33.0); MCHC 32.6 % (32.0-36.0); MCV 94 fL (80-95); MPV 10.3 fL (8.0-11.0); Platelet Count 169 10^3/uL (130-400); RDW 12.1 % (11.8-14.1); RDW-SD 41.9 fL; WBC 9.03 10^3/uL (4.4-10.8)
[2021-06-20 06:56] LABS: Anion Gap 6.6 mmol/L (3-11); BUN 15 mg/dL (7-18); CO2 28.4 mmol/L (21.0-32.0); CREATININE 0.6 mg/dL (0.70-1.30); Calcium 8.1 mg/dL (8.5-10.1); Chloride 100 mmol/L (98-107); Glucose 109 mg/dL (74-106); Sodium 135 mmol/L (136-145)
[2021-06-20 07:33] VITALS: BP 133/72; PULSE 71; RESP 18; TEMP 37.5; O2SAT 94
[2021-06-20] MEDS: Pantoprazole 40 MG VIAL IVP (07:48)
[2021-06-20] MEDS: Tamsulosin 0.4 MG CAPCR PO (07:49)
[2021-06-20] MEDS: risperiDONE 0.5 MG TAB PO (07:49)
[2021-06-20] MEDS: Normal Saline Flush 10 ML SYR IVP (07:49)
[2021-06-20] MEDS: FLUoxetine 20 MG CAP PO (07:49)
[2021-06-20] MEDS: ARIPiprazole 5 MG TAB 10 MG PO (07:49)
--- NOTE | 2021-06-20 07:59 | W.PM.PROGNOT ---
Date of Service Date of service: 06/20/21 Time of Service: 07:59 Assessment and Plan Assessment and plan (1) Bowel obstruction: Status: Acute Assessment and plan: (+) Fatus and stool noted in colostomy Abdomen soft, non-tender Continue NPO; May have ice chips Denies having any pain No nausea or vomiting Patient appears to be opening up, will await ABD Xray results (2) Dysphagia: Status: Acute Subjective Subjective Interval history since last seen: Patient states he is feeling well this morning. He states he is hungry and thirsty. He denies any abdominal pain. Exam Const General: cooperative, healthy appearing and comfortable Orientation: alert and oriented x3 Resp Effort & Inspection: normal respiratory effort, no audible wheezes and no cough GI Inspection: normal to inspection Palpation: soft, no guarding and nontender Auscultation: normal bowel sounds Other: Colostomy with soft brown stool and small amount of air NG tube in place canister has 500cc of brown, fluid since it was placed. Objective Last Vital Signs Temp 37.5 C 06/20/21 07:33 Pulse 71 06/20/21 07:33 Resp 18 06/20/21 07:33 BP 133/72 06/20/21 07:33 Pulse Ox 94 06/20/21 07:33 Laboratory Results - last 24 hr 06/20/21 06/20/21 06:10 06:10 WBC 9.03 RBC 3.90 L Hgb 11.9 L Hct 36.5 L MCV 94 MCH 30.5 MCHC 32.6 RDW 12.1 Plt Count 169 MPV 10.3 Sodium 135 L Potassium 4.0 Chloride 100 Carbon Dioxide 28.4 Anion Gap 6.6 BUN 15 Creatinine 0.6 L Estimated GFR/1.73 m2 >= 60.00 Glucose 109 H Calcium 8.1 L Magnesium 2.0
[2021-06-20] MEDS: ACETAMINOPHEN 1,000 MG/100 ML BTL 400 MG IVPB (12:01)
[2021-06-20] MEDS: Ondansetron 4 MG/2 ML VIAL IVP (13:29)
--- NOTE | 2021-06-20 15:01 | PHA.REVIEW ---
Pharmacy Admission Review - Admission Clinical Review (Last Reviewed 06/18/21 @ 23:05 by Nate Chavez MD) Bowel obstruction (Acute) Dysphagia (Acute) No Known Allergies Allergy (Verified 06/18/21 22:49) Resuscitation Status Full Code Height 5 ft 10 in Weight 77 kg - Renal Dosing Renal Dosing: BUN 15 mg/dL (7-18) 06/20/21 06:10 Creatinine 0.6 mg/dL (0.70-1.30) L 06/20/21 06:10 Medications needing adjustments: Reviewed (Crcl ~89 mL/min current meds okay) - Anticoagulation Anticoagulation: Hgb 11.9 g/dL (13.5-17.5) L 06/20/21 06:10 Hct 36.5 % (40.0-50.0) L 06/20/21 06:10 Plt Count 169 10^3/uL (130-400) 06/20/21 06:10 Creatinine 0.6 mg/dL (0.70-1.30) L 06/20/21 06:10 DVT Prophylaxis: Reviewed (Currently has SCDs ordered and is mobile per the provider.) Therapeutic Anticoagulation: N/A - Opiate Usage Evaluate Pain Scale/Pains Meds: N/A - Relevant Labs Sodium 135 mmol/L (136-145) L 06/20/21 06:10 Potassium 4.0 mmol/L (3.5-5.1) 06/20/21 06:10 Chloride 100 mmol/L (98-107) 06/20/21 06:10 Magnesium 2.0 mg/dL (1.8-2.4) 06/20/21 06:10 Electrolytes, C-Reactive P, ESR: Reviewed - DM Control DM Control: Glucose 109 mg/dL (74-106) H 06/20/21 06:10 Insulin Dosing: N/A - Heart Failure/DC Heart Failure/DC: Troponin I < 50 ng/L (<or=60) 06/19/21 01:55 EF%, LYNN's, B-Blockers, Diuretics: Reviewed - BP Control BP Control: Blood Pressure 133/72 If elevated: Reviewed (BP was a little low on admission but has been within normal limits so far today.) - Qtc Review If Elevated: N/A - IV to PO Switch IV Medications: Intervened (Will check with provider about changing acetaminophen and pantoprazole to PO as the patient is taking other PO meds.) - Home Meds Home Med List reviewed: Reviewed (Fluoxetine may increase the serum concentration of risperidone and aripiprazole. Uptodate recommends monitoring closely for toxicity and possible dosage adjustments if using these meds in combination.) Relevent Home Meds Not ordered & why?: esomeprazole (has pantoprazole ordered), ketoconazole cream, melatonin, solifenacin - Current meds Current Medication Order Review: Intervened (Discontinued DI meds that had already been given and duplicate med orders.) - Comments Comments/Follow Ups: Watch VS, labs and for med orders (IV to PO, home meds).
[2021-06-20 15:12] VITALS: BP 126/73; PULSE 74; RESP 20; TEMP 37.5; O2SAT 94
--- NOTE | 2021-06-20 17:19 | PDOC.CMPRO ---
- If Service Date Differs Date of service: 06/20/21 Time of Service: 17:19 Care Management Progress Note S/O: Blake remains inpatient, per MD, SBO appears to be resolving. No change to overall plan, CM continues to follow. A: 70 year old male admitted to [facility] 06/19/21 for SBO P: Blake will discharge home with Lucia his home provider, when medically ready per MD. Anticipate he will have new VNA services if indicated and transport via private vehicle with Lucia.
[2021-06-20 19:30] VITALS: BP 115/69; PULSE 67; RESP 18; TEMP 37.1; O2SAT 92
[2021-06-20] MEDS: Desmopressin 0.2 MG TAB 0.4 MG PO (20:03)
[2021-06-20 23:00] VITALS: BP 137/74; PULSE 75; RESP 17; TEMP 36.9; O2SAT 93
[2021-06-21] MEDS: Normal Saline 1,000 ML 100 ML IV ×2 (05:18→16:14)
[2021-06-21 05:21] VITALS: BP 121/71; PULSE 68; RESP 17; TEMP 36.8; O2SAT 93
[2021-06-21 07:17] VITALS: BP 118/70; PULSE 62; RESP 18; TEMP 37.3; O2SAT 92
[2021-06-21 07:34] LABS: HCT 34.9 % (40.0-50.0); HGB 11.2 g/dL (13.5-17.5); MCH 30.7 pg (27.0-33.0); MCHC 32.1 % (32.0-36.0); MCV 96 fL (80-95); MPV 10.4 fL (8.0-11.0); Platelet Count 153 10^3/uL (130-400); RBC 3.65 10^6/uL (4.36-5.78); RDW 11.9 % (11.8-14.1); RDW-SD 41.6 fL; WBC 7.47 10^3/uL (4.4-10.8)
[2021-06-21 07:43] LABS: Anion Gap 5.1 mmol/L (3-11); BUN 11 mg/dL (7-18); CO2 29.9 mmol/L (21.0-32.0); CREATININE 0.6 mg/dL (0.70-1.30); Calcium 8.4 mg/dL (8.5-10.1); Chloride 107 mmol/L (98-107); Glucose 92 mg/dL (74-106); Magnesium 1.8 mg/dL (1.8-2.4); Potassium 3.9 mmol/L (3.5-5.1); Sodium 142 mmol/L (136-145)
--- NOTE | 2021-06-21 07:47 | W.PM.PROGNOT ---
Date of Service Date of service: 06/21/21 Time of Service: 07:00 Assessment and Plan Assessment and plan (1) Bowel obstruction: Status: Acute Assessment and plan: (+) Fatus colostomy; Only ~250 of stool output over the past 2 days. Abdomen soft, non-tender Continue NPO; May have ice chips Denies having any pain No nausea or vomiting Continue activity OOB and with PT Patient appears to be opening up Will order ABD XR Patient seen and examined. Agree with above. Continue MiraLAX Start clears (2) Dysphagia: Status: Acute Subjective Subjective Interval history since last seen: The patient states that he is feeling well this morning, however he is concerned that he feels weak. Denies having any pain, SOB, chest pain, fevers or chills. Exam Const General: cooperative, healthy appearing, comfortable and anxious Orientation: alert and oriented x3 Resp Effort & Inspection: normal respiratory effort, no audible wheezes and no cough GI Inspection: normal to inspection and non-distended Palpation: soft, no guarding and nontender Auscultation: normal bowel sounds Objective Last Vital Signs Temp 37.3 C 06/21/21 07:17 Pulse 62 06/21/21 07:17 Resp 18 06/21/21 07:17 BP 118/70 06/21/21 07:17 Pulse Ox 92 06/21/21 07:17 Laboratory Results - last 24 hr 06/21/21 06:20 WBC 7.47 RBC 3.65 L Hgb 11.2 L Hct 34.9 L MCV 96 H MCH 30.7 MCHC 32.1 RDW 11.9 Plt Count 153 MPV 10.4
[2021-06-21] MEDS: ARIPiprazole 5 MG TAB 10 MG PO (08:37)
[2021-06-21] MEDS: risperiDONE 0.5 MG TAB PO (08:38)
[2021-06-21] MEDS: Tamsulosin 0.4 MG CAPCR PO (08:38)
[2021-06-21] MEDS: FLUoxetine 20 MG CAP PO (08:38)
[2021-06-21] MEDS: Pantoprazole 40 MG TABCR PO (08:38)
--- NOTE | 2021-06-21 08:40 | CMPROGNOTE_ITS ---
- If Service Date Differs Date of service: 06/21/21 Time of Service: 08:40 Care Management Progress Note S/O: Blake remains inpatient, per MD, SBO appears to be resolving. No change to overall plan, CM continues to follow. A: 70 year old male admitted to [facility] 06/19/21 for SBO P: Blake will discharge home with Lucia his home provider, when medically ready per MD. Anticipate he will have new VNA services if indicated and transport via private vehicle with Lucia.
--- NOTE | 2021-06-21 08:56 | DI.RAD_ITS ---
Exam(s) XR ABDOMEN FLAT UPRIGHT EXAM: XR ABDOMEN FLAT UPRIGHT CLINICAL HISTORY: SBO TECHNIQUE: COMPARISON: CT CT ABDOMEN PELVIS W from 06/18/2021 FINDINGS: Three views were obtained. There is moderate quantity of fecal material throughout the colon. There is question of slight small bowel dilatation, decreased from prior CT examination of June 18. No fr ee intraperitoneal air seen. No gross organomegaly. IMPRESSION: No specific evidence of small bowel obstruction by plain film criteria. RADIATION DOSE DELIVERED: Total DLP
[2021-06-21] MEDS: Normal Saline Flush 10 ML SYR IVP (09:19)
[2021-06-21] MEDS: Polyethylene Glycol 3350 17 GM PACKET PO ×2 (11:55→17:09)
[2021-06-21 15:09] VITALS: BP 122/76; PULSE 70; RESP 18; TEMP 36.7; O2SAT 99
[2021-06-21 19:13] VITALS: BP 137/77; PULSE 68; RESP 20; TEMP 36.8; O2SAT 97
[2021-06-21] MEDS: Desmopressin 0.2 MG TAB 0.4 MG PO (20:27)
[2021-06-21 23:05] VITALS: BP 126/78; PULSE 67; RESP 20; TEMP 37; O2SAT 95
[2021-06-22] MEDS: Normal Saline 1,000 ML 100 ML IV ×2 (02:51→11:55)
[2021-06-22 06:47] LABS: Anion Gap 7.2 mmol/L (3-11); BUN 12 mg/dL (7-18); CO2 28.8 mmol/L (21.0-32.0); CREATININE 0.7 mg/dL (0.70-1.30); Calcium 8.3 mg/dL (8.5-10.1); Chloride 103 mmol/L (98-107); Glucose 131 mg/dL (74-106); Magnesium 1.5 mg/dL (1.8-2.4); Potassium 3.4 mmol/L (3.5-5.1); Sodium 139 mmol/L (136-145)
[2021-06-22 07:21] VITALS: BP 142/84; PULSE 81; RESP 18; TEMP 36.8; O2SAT 95
--- NOTE | 2021-06-22 07:42 | W.PM.PROGNOT ---
Date of Service Date of service: 06/22/21 Time of Service: 07:42 Assessment and Plan Assessment and plan (1) Bowel obstruction: Status: Acute Assessment and plan: (+) Flatus and small amount of soft brown stool in colostomy; Ordered Mag Citrate and will continue with Miralax Abdomen soft, non-tender Full liquid diet Denies having any pain No nausea or vomiting Continue activity OOB and with PT (2) Dysphagia: Status: Acute Subjective Subjective Interval history since last seen: Patient states he continues to feel much better this morning and is eager to return home. He denies having any abdominal pain or bloating. Exam Const General: cooperative, healthy appearing, comfortable and anxious Orientation: alert and oriented x3 Resp Effort & Inspection: normal respiratory effort, no audible wheezes and no cough GI Inspection: normal to inspection and non-distended Palpation: soft, no guarding and nontender Auscultation: normal bowel sounds Other: (+) Soft brown stool noted in ostomy Objective Last Vital Signs Temp 36.8 C 06/22/21 07:21 Pulse 81 06/22/21 07:21 Resp 18 06/22/21 07:21 BP 142/84 H 06/22/21 07:21 Pulse Ox 95 06/22/21 07:21 Laboratory Results - last 24 hr 06/21/21 06/22/21 06:20 06:00 Sodium 142 139 Potassium 3.9 3.4 L Chloride 107 103 Carbon Dioxide 29.9 28.8 Anion Gap 5.1 7.2 BUN 11 12 Creatinine 0.6 L 0.7 Estimated GFR/1.73 m2 >= 60.00 >= 60.00 Glucose 92 131 H Calcium 8.4 L 8.3 L Magnesium 1.8 1.5 L
[2021-06-22] MEDS: FLUoxetine 20 MG CAP PO (09:02)
[2021-06-22] MEDS: MAGNESIUM SULFATE 2 GM/50 ML BAG IVPB (09:02)
[2021-06-22] MEDS: ARIPiprazole 5 MG TAB 10 MG PO (09:02)
[2021-06-22] MEDS: Pantoprazole 40 MG TABCR PO (09:03)
[2021-06-22] MEDS: risperiDONE 0.5 MG TAB PO (09:03)
[2021-06-22] MEDS: Tamsulosin 0.4 MG CAPCR PO (09:03)
[2021-06-22] MEDS: Polyethylene Glycol 3350 17 GM PACKET PO (09:03)
[2021-06-22] MEDS: Magnesium Citrate 300 ML BTL 150 ML PO (09:04)
--- NOTE | 2021-06-22 11:03 | PT.INIE ---
Date of service: 06/22/21 Time of Service: 11:03 PT Notes Visit Reasons: Small bowel obstruction Physical Therapy Inpatient Initial Evaluation Date: 06/22/2021 Referring Doctor: Carie Zeng MD PT Orders: PT CONSULT: Eval/Treat Precautions: Fall. Standard. Activity as tolerated. Patient Profile/Admitting Diagnosis: Patient is a 70-year-old male patient with past medical history significant for traumatic brain injury who presented to the ED on 06/18/2021 due to lower abdominal pain and cramping, nausea, hard stools and decreased ostomy output. Patient is diagnosed with bowel obstruction and dysphagia with referral for progressing mobility level in anticipation of discharge to home when medically cleared. 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 Acid reflux Anemia Atelectasis BPH (benign prostatic hyperplasia) Traumatic brain injury Surgical History? S/P left hemicolectomy (~12/25/20) Social History/Home Situation: Lives with caregivers at caregivers's home. Independent with all ambulation using no assistive device. Equipment Owned/DME: SPC Subjective: Agreeable to PT consult. States that he has been walking with nursing staff using FWW. Objective: General Observation: Seated on chair. Bejarano catheter in place. Mental Status: Alert and oriented as to person, place, time, and purpose. Able to pay attention, focus, and respond appropriately. Pain: Denies Vital Signs: WNL as closely monitored by nursing staff ROM: Right Upper Extremity: Shoulder Flexion WFL. Shoulder abduction WFL. Elbow flexion WFL. Wrist flexion WFL. Functional opening and closing of hand WFL. Left Upper Extremity: Shoulder Flexion WFL. Shoulder abduction WFL. Elbow flexion WFL. Wrist flexion WFL. Functional opening and closing of hand WFL. Right Lower Extremity: Hip flexion WFL. Hip abduction WFL. Knee flexion WFL. Ankle dorsiflexion WFL. Ankle plantarflexion WFL. Left Lower Extremity: Hip flexion WFL. Hip abduction WFL. Knee flexion WFL. Ankle dorsiflexion WFL. Ankle plantarflexion WFL. Strength: Right Upper Extremity: Shoulder flexors 4/5. Shoulder abductors 4/5. Elbow flexors 5/5. Elbow extensors 5/5. Automation Controls Specialist strong. Left Upper Extremity: Shoulder flexors 4/5. Shoulder abductors 4/5. Elbow flexors 5/5. Elbow extensors 5/5. Automation Controls Specialist strong. Right Lower Extremity: Hip flexors 4/5. Hip abductors 4/5. Knee flexors 5/5. Knee extensors 4/5. Ankle dorsiflexors 4-/5. Ankle plantarflexors 4/5. Left Lower Extremity: Hip flexors 4/5. Hip abductors 4/5. Knee flexors 5/5. Knee extensors 4/5. Ankle dorsiflexors 4-/5. Ankle plantarflexors 4/5. Bed Mobility/Transfers: Rolling independent Supine to sit independent Sit to supine independent Sit to stand independent Stand to sit independent Bed to reclining chair independent Gait: Instructed patient with level surface ambulation of 900 feet requiring stand by assist. Gait pattern at baseline. No pain report. Without a FWW, patient is able to ambulate with supervision with no LOB and no shortness of breath. Balance: Static Sitting: Normal Dynamic Sitting: Normal Static Standing: Fair Dynamic Standing: Fair Special Tests: Mobility Limitations Standardized Measure [facility] AM-PAC 6 clicks Basic Mobility Inpatient Short Form: Raw Score: 24 CMS Score: 0% deficit Informed Consent/Education: Patient was instructed in purpose of PT consult and plan of care. Agreeable to proceed with established PT POC to achieve personal goals. Assessment: Patient requires aggressive mobilization to address bowel obstruction. He does not require FWW as patient is able to manage prior level ambulation distance without any difficulty. He goes home this afternoon to caregivers' house at prior level of function. Patient presents with clinical signs and symptoms consistent with current/admitting diagnoses that have resulted to mobility limitations, gait instability, generalized weakness, and overall ADL decline as demonstrated by the following impairment level findings: decreased strength to B shoulders and hips major muscle groups Patient is assessed as a 61884 low complexity based on the following: History: 70-year-old male with past medical history as indicated above Examination: Demonstrable impairment in strength, balance, and mobility level with underlying impairments and functional limitations as exhibited above as well as deficit score of 0% utilizing the [facility] Mobility Inpatient Short Form Presentation: Stable Decision Makin low complexity Goals: Goals X1 week 1. Supine-Sit independent 2. Sit-Supine independent 3. Sit-Stand independent 4. Stand-Sit independent 5. Bed-Chair independent 6. Chair-Bed independent 7. Independent gait on level surface with use of no AD for at least 900 feet without report of pain nor dyspnea 8. Good static and dynamic standing balance/tolerance Plan of Care/Treatment Plan: 1-2x/day, 7 days/week x 1 week. Plan of care has been reviewed with the CAMPUS DIRECTOR providing the service under Physical Therapy direction. Initiate Physical Therapy intervention for pain management as needed, strengthening, bed mobility, transfers, gait, stairs, balance training, and use of assistive device. DISCHARGE RECOMMENDATIONS: Home when medically cleared by hospitalist. No AD needed. TREATMENT CODE/TIME: 94486 x 15 minutes, 89997 x 19 minutes beginning at 11:03 AM. Thank you for the opportunity to participate in the care of this patient. Donna Strickland PT, DPT, CLT [facility] [place], [place]
[2021-06-22] MEDS: Potassium Chloride 10 MEQ TABCR PO (11:55)
--- NOTE | 2021-06-22 13:02 | PT.INDS ---
Date of service: 06/22/21 PT Notes Visit Reasons: Small bowel obstruction Physical Therapy Inpatient Discharge Summary Date: 06/22/2021 Dates of service: 06/22/2021 only Referring Doctor:? Carie Zeng,? PT Orders: PT CONSULT: Eval/Treat Precautions: Fall. Standard. Activity as tolerated. Patient Profile/Admitting Diagnosis:? Patient is a 70-year-old male patient with past medical history significant for traumatic brain injury who presented to the ED on 06/18/2021 due to lower abdominal pain and cramping, nausea,? hard stools and decreased ostomy output.? Patient is diagnosed with bowel obstruction and dysphagia with referral for progressing mobility level in anticipation of discharge to home when medically cleared. 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 Acid reflux Anemia Atelectasis BPH (benign prostatic hyperplasia) Traumatic brain injury Surgical History? S/P left hemicolectomy (~12/25/20) Social History/Home Situation: Lives with caregivers at caregivers's home.? Independent with all ambulation using no assistive device. Equipment Owned/DME: SPC Subjective: Agreeable to PT consult.? States that he has been walking with nursing staff using FWW. Objective: General Observation: Seated on chair.? Bejarano catheter being pulled out by nurse. Mental Status: Alert and oriented as to person, place, time, and purpose. Able to pay attention, focus, and respond appropriately. Pain: Denies Vital Signs: WNL as closely monitored by nursing staff ROM: Right Upper Extremity: ? Shoulder Flexion WFL. Shoulder abduction WFL. Elbow flexion WFL. Wrist flexion WFL. Functional opening and closing of hand WFL. Left Upper Extremity:? Shoulder Flexion WFL. Shoulder abduction WFL. Elbow flexion WFL. Wrist flexion WFL. Functional opening and closing of hand WFL. Right Lower Extremity: Hip flexion WFL. Hip abduction WFL. Knee flexion WFL. Ankle dorsiflexion WFL. Ankle plantarflexion WFL. Left Lower Extremity: Hip flexion WFL. Hip abduction WFL. Knee flexion WFL. Ankle dorsiflexion WFL. Ankle plantarflexion WFL. Strength: Right Upper Extremity: Shoulder flexors 4/5. Shoulder abductors 4/5. Elbow flexors 5/5. Elbow extensors 5/5. Sleeping Car Service Attendant strong. Left Upper Extremity: Shoulder flexors 4/5. Shoulder abductors 4/5. Elbow flexors 5/5. Elbow extensors 5/5. Sleeping Car Service Attendant strong. Right Lower Extremity: Hip flexors 4/5. Hip abductors 4/5. Knee flexors 5/5. Knee extensors 4/5. Ankle dorsiflexors 4-/5. Ankle plantarflexors 4/5. Left Lower Extremity: Hip flexors 4/5. Hip abductors 4/5. Knee flexors 5/5. Knee extensors 4/5. Ankle dorsiflexors 4-/5. Ankle plantarflexors 4/5. Bed Mobility/Transfers: Rolling independent Supine to sit independent Sit to supine independent Sit to stand independent Stand to sit independent Bed to reclining chair independent Gait: Instructed patient with level surface ambulation of 900 feet requiring stand by assist.? Gait pattern at baseline.? No pain report.? Without a FWW,? patient is able to ambulate with supervision with no LOB and no shortness of breath. Balance: Static Sitting: Normal Dynamic Sitting: Normal Static Standing: Fair Dynamic Standing: Fair Assessment: Patient requires aggressive ambulationn to address bowel obstruction.? He does not require FWW as patient is able to manage prior level ambulation distance without any difficulty.? He goes home this afternoon to caregivers' house at prior level of function.? Patient presents with clinical signs and symptoms consistent with current/admitting diagnoses that have resulted to mobility limitations, gait instability, generalized weakness, and overall ADL decline as demonstrated by the following impairment level findings: decreased strength to B shoulders and hips major muscle groups. Goals: Goals X1 week 1. Supine-Sit independent MET 2. Sit-Supine independent MET 3. Sit-Stand independent MET 4. Stand-Sit independent MET 5. Bed-Chair independent MET 6. Chair-Bed independent MET 7. Independent gait on level surface with use of no AD for at least 900 feet without report of pain nor dyspnea MET 8. Good static and dynamic standing balance/tolerance MET DISCHARGE RECOMMENDATIONS: Home when medically cleared by hospitalist.? No AD needed. TREATMENT CODE/TIME: 50329 x 31 minutes beginning at 13:02 PM. Thank you for the opportunity to participate in the care of this patient. Donna Strickland PT, DPT, CLT [facility] [place], [place]
--- NOTE | 2021-06-22 14:56 | PDOC.DSDIS_ITS ---
Discharge Plan Disposition Patient Disposition: HOME Condition: Improving Discharge Details Reason For Visit: Small bowel obstruction Admit Date/Time: 06/19/21 01:22 Admit Provider: Alicia Ozuna Attending Provider: Alicia Ozuna Primary Care Provider: Shon Larios [facility] Course Hospital Course: Blake was admitted on 06/19/21 with a SBO. On PAD #2 he had some air and a small amount of stool in his bag. His NG was removed and he was started on Ice chips. We was then advanced to a clear liquid diet and advanced as tolerated. XRay on 06/21 showed moderate amount of stool and no signs of obstructiion. He was given 150 cc of Mag Citrate and he had good results. On 06/22 he was eating. passing flatus and stool. ABDO was soft and non-distended. Patient is discharged home with his caregivers non medical on daily Miralax Home Meds and New Rx's Prescriptions: New polyethylene glycol 3350 17 gram Powder In Packet 17 g PO DAILY Qty: 100 3RF Rx Instructions: take daily and as needed BID Continued solifenacin [Vesicare] 10 mg tablet 10 mg PO DAILY 0RF tamsulosin 0.4 mg capsule 0.4 mg PO DAILY 0RF esomeprazole magnesium [Nexium] 40 mg capsule,delayed release(DR/EC) 40 mg PO DAILY 0RF ketoconazole 2 % cream 1 applic topical DAILY 0RF risperidone [Risperdal] 0.5 mg tablet 0.5 mg PO DAILY 0RF aripiprazole [Abilify] 10 mg tablet 10 mg PO DAILY 0RF desmopressin 0.2 mg tablet 0.4 mg PO .evening 0RF fluoxetine 20 mg capsule 20 mg PO DAILY 0RF Label Comments: TAKE ONE CAPSULE BY MOUTH EVERY DAY melatonin 3 mg Tablet 3 mg PO DAILY 0RF Discharge Instructions Additional Instructions: Activity at Home after surgery: 1. As tolerated Diet, Nutrition, & wound healin. As tolerated. For Constipation: 1. MiraLax daily. If no BM by nighttime then may give a second dose at night. If he gets diarrhea then you can skip a day Please call our office if you develop: 1. Fevers >101.5 2. Nausea or Vomiting 3. Worsening pain 4. Redness and thick discharge from the wounds If after hours please call the Hospital at and ask to speak to the on-call surgeon Stand Alone Forms: Nursing Discharge Form Activity:: Activity as Tolerated Equipment/Supplies:: No Equipment Needed Diet:: As Tolerated Discharge Orders Discharge Orders: Discharge Order (Routine); Ordered 06/22/21 Ordered By: Alicia Ozuna DS: Diagnosis Discharge Diagnosis (1) Bowel obstruction: Status: Acute (2) Dysphagia: Status: Acute
[2021-06-22 14:59] VITALS: BP 136/82; PULSE 94; RESP 8; TEMP 36.9; O2SAT 95
--- NOTE | 2021-06-22 15:04 | CMDISCH_ITS ---
- If Service Date Differs Date of service: 06/22/21 Time of Service: 15:04 LACE Index Scoring Tool - Questions: Length of Stay (in days): 3 Acuity (Admit via E.D.?): Yes E.D. Visits: 2 - Answers: Total Score: 8 Risk of Readmission: Low Risk Care Management Discharge Reason for Hospitalization: Small Bowel Obstruction Discharge Plan: Blake will return home with no new services, into the care of his [facility] home provider. She will drive him home via private vehicle. He will follow up with his PCP and discharge plan of care. Patient/Family Education Needs: Review discharge instructions and limitations, discussion of self care needs including ask me three.
== END 2021-06-22 16:03 | disposition home or self-care (01) | DRG 390 ==
LOC: ER 06-19 02:04 → MS 06-19 02:45
PROVIDERS: Surgery; Admitting Provider Surgery; Emergency Provider Emergency Medicine; PCP Neuromusculoskeletal Medicine & OMM; Visit Provider Surgery
DX: K56.609 Unspecified intestinal obstruction, unspecified as to partial versus complete obstruction (principal); Z93.3 Colostomy status; R13.10 Dysphagia, unspecified; D64.9 Anemia, unspecified; N40.0 Benign prostatic hyperplasia without lower urinary tract symptoms; Z87.820 Personal history of traumatic brain injury; Z87.891 Personal history of nicotine dependence; K22.70 Barrett's esophagus without dysplasia; B37.2 Candidiasis of skin and nail; Z90.49 Acquired absence of other specified parts of digestive tract
CPT/HCPCS: 36415; 80048; 80053; 83690; 85027; 87635; 96365; 96366; 96367; 97110; 97162; 97530; 99222; 99232; 99285; 71045; 74019; 74177; 81003; 83605; 83735; 84484; 85025; J0131; J2405; J3490

== ENCOUNTER → 2021-10-09 08:29 | Outpatient (BNVA) | payer MEDICARE, MEDICAID, SELFPAY | PROVIDERS: PCP Neuromusculoskeletal Medicine & OMM; Referring Provider Internal Medicine Gastroenterology; Visit Provider Psychiatry & Neurology Neurology | DX: Z87.820 Personal history of traumatic brain injury (principal); G21.11 Neuroleptic induced parkinsonism | CPT/HCPCS: 99215 ==

== ENCOUNTER → 2021-10-09 10:18 | Outpatient (BNVA) | payer MEDICARE, MEDICAID, SELFPAY | PROVIDERS: PCP Neuromusculoskeletal Medicine & OMM; Referring Provider Neuromusculoskeletal Medicine & OMM; Visit Provider Surgery | DX: K21.9 Gastro-esophageal reflux disease without esophagitis (principal) | CPT/HCPCS: 99212; 99215 ==

== ENCOUNTER 2021-11-26 09:16 | Emergency (ER) | payer MEDICARE, MEDICAID, SELFPAY ==
[2021-11-26] VITALS (11 sets, daily range): BP systolic 113–140; BP diastolic 57–68; PULSE 55–74; RESP 11–23; TEMP 36.5; O2SAT 98–100
--- NOTE | 2021-11-26 09:30 | RT.EKG_ITS ---
APPROVED REPORT Exam: Resting ECG Reason for Exam: altered mental status Patient Location: E HR:67 bpm ECG Measurements Heart Rate 67 AXIS IA 171 P 60 QRSd 98 QRS -31 QT 412 T 55 QTc 434 Conclusion Sinus rhythm...normal P axis, V-rate 60- 99 Left axis deviation...QRS axis (-30,-90)
--- NOTE | 2021-11-26 09:30 | DI.RAD_ITS ---
Exam(s) XR CHEST 2V PA LATERAL EXAM: XR CHEST 2V PA LATERAL CLINICAL HISTORY: general weakness TECHNIQUE: 2D digital imaging was performed. COMPARISON: CR XR PORTABLE CHEST AP from 06/19/2021 FINDINGS: HEART: Normal size. Aorta: PULMONARY VASCULATURE: Normal. LUNGS: Clear. PLEURAL SPACE: No pleural effusion or pneumothorax. BONE:Unremarkable for age. IMPRESSION: No acute abnormality. DATA REPOSITORY: RADIATION DOSE DELIVERED:
--- NOTE | 2021-11-26 09:44 | ED.GENADUL_ITS ---
Discharge Plan Disposition Patient Disposition: HOME Condition: Stable Discharge Details Clinical Impression: General weakness, COVID, Hyperreflexia Primary Care Provider: Shon Larios ED Provider: Juan Carlos Perkins Home Meds and New Rx's Prescriptions: Continued solifenacin [Vesicare] 10 mg tablet 10 mg PO DAILY tamsulosin 0.4 mg capsule 0.4 mg PO DAILY esomeprazole magnesium [Nexium] 40 mg capsule,delayed release(DR/EC) 40 mg PO DAILY risperidone [Risperdal] 0.5 mg tablet 0.5 mg PO DAILY aripiprazole [Abilify] 10 mg tablet 10 mg PO DAILY ketoconazole 2 % cream 1 applic topical DAILY PRN desmopressin 0.2 mg tablet 0.4 mg PO .evening desmopressin 0.2 mg Tablet 0.4 mg PO ONCE melatonin 3 mg Tablet PO ONCE esomeprazole magnesium [Nexium] 40 mg Capsule,Delayed Release(Dr/Ec) 40 mg PO 1XD aripiprazole [Abilify] 10 mg Tablet 10 mg PO DAILY solifenacin [Vesicare] 10 mg Tablet 10 mg PO DAILY fluoxetine 20 mg capsule 20 mg PO DAILY Label Comments: TAKE ONE CAPSULE BY MOUTH EVERY DAY polyethylene glycol 3350 17 gram Powder In Packet 17 g PO DAILY Qty: 100 3RF Rx Instructions: take daily and as needed BID melatonin 3 mg tablet 3 mg PO HS Discharge Instructions Instructions: Weakness (ED), COVID-19 (Coronavirus Disease 2019) (ED) Additional Instructions: your blood work, chest xray and mri of your brain did not show concerning findings at this time follow up with your primary care provider within 1-2 weeks if you feel more ill, have severe pain or difficulty breathing return to the emergency department Medical Decision Making 71 yo male with hx of parkinsonism, gerd, left hyperreflexia, colostomy, who comes in with customer care assistant with concerns for general weakness worsening over the last 4-5 days. The career guidance counselor says he can normally get around on his own but the last few days has required significant assistance and hasn't had the same energy level he normally has so brought him here. He arrives caox4 though is slow to answer questions. He denies any fevers, chills, headache, chest pain, dyspnea, abdominal pain. He is in no distress on exam though appears fatigued. He has no focal deficits I can elicit on exam, no drift, has intact soft sensation to extremities, perrl, eomi, soft nontender abdomen, no wheezing on lung exam though is diminished at the bases. Unclear etiology for his general weakness and fatigue, will obtain cbc to evaluate for anemia, cmp to evaluate for electrolyte abnormality, check ua and cxr for potential infectious etiology. Though his symptoms do not seem consistent with cva he was scheduled to have an mri tomorrow ordered by his neurologist for left hyperreflexia and will order this to evaluate for potential etiologies such as cva or hemorrhage though this seems unlikely given his lack of focal findings and lack of headache. pt's blood work and imaging unremarkable, is positive for covid. He is stable, still feels mild fatigue but no other symptoms. Given reassuring workup including mri do not feel admission required and caretakers as well as patient comfortable with d/c and following up with pcp, return precautions given. He has been vacinnated and boostered for covid and apparently had covid during the summer as well so unlikely to become severely ill from covid. Discussed with pharmacy and has multiple medications that would require adjustments to start paxlovid so will hold on starting paxlovid. Differential Diagnosis Differential Diagnosis: anemia, electrolyte abnormality, cva/tia Medical Records Medical records reviewed: Yes I reviewed the patient's medical records. Imaging Data Radiologic Study: Attestation: I personally reviewed and interpreted this imaging study as follows: Imaging: MRI Radiologist's impression: no acute findings Radiologic Study #2: Attestation: I personally reviewed and interpreted this imaging study as follows: Imaging: X-Ray Radiologist's impression: no acute findings Lab Data Lab results reviewed: Yes I reviewed the patient's lab results. ECG Data Attestation: I personally reviewed and interpreted this ECG (s) as follows: Prior ECG tracings: available for review Interpretation: sinus rhythm, rate of 67, no acute st t wave ischemic findings HPI General Mode of arrival: ambulatory . Date/Time Provider Initiated Documentation: 11/26/21 09:17 . Limitations to Documentation: no limitations . Information obtained by: patient . History of Present Illness 71 year old M presents to the emergency department with the chief complaint of general weakness, described as moderate, Patient started experiencing this day(s) (5) and it has been constant. No relieving factors improve symptom(s), No exacerbating factors reported . Patient notes denies chest pain and fever/chills. Patient did receive the following treatments prior to arrival, none Related Data Home Medications Medication Instructions Recorded Confirmed aripiprazole 10 mg tablet (Abilify) 10 mg PO DAILY 12/25/20 11/12/21 esomeprazole magnesium 40 mg 40 mg PO DAILY 12/25/20 11/12/21 capsule,delayed release (Nexium) fluoxetine 20 mg capsule 20 mg PO DAILY 12/25/20 11/26/21 risperidone 0.5 mg tablet 0.5 mg PO DAILY 12/25/20 11/26/21 (Risperdal) solifenacin 10 mg tablet (Vesicare) 10 mg PO DAILY 12/25/20 11/12/21 tamsulosin 0.4 mg capsule 0.4 mg PO DAILY 12/25/20 11/26/21 desmopressin 0.2 mg tablet 0.4 mg PO .evening 01/01/21 11/12/21 polyethylene glycol 3350 17 gram 17 g PO DAILY #100 ea 06/22/21 11/12/21 oral powder packet ketoconazole 2 % topical cream 1 applic topical DAILY PRN 10/09/21 11/26/21 melatonin 3 mg tablet 3 mg PO HS 10/09/21 11/26/21 aripiprazole 10 mg tablet (Abilify) 10 mg PO DAILY 11/26/21 11/26/21 desmopressin 0.2 mg tablet 0.4 mg PO ONCE 11/26/21 11/26/21 esomeprazole magnesium 40 mg 40 mg PO 1XD 11/26/21 11/26/21 capsule,delayed release (Nexium) melatonin 3 mg tablet mg PO ONCE 11/26/21 solifenacin 10 mg tablet (Vesicare) 10 mg PO DAILY 11/26/21 11/26/21 Previous Rx's Medication Instructions Recorded polyethylene glycol 3350 17 gram 17 g PO DAILY #100 ea 06/22/21 oral powder packet Allergies Allergy/AdvReac Type Severity Reaction Status Date / Time No Known Allergies Allergy Verified 11/26/21 10:04 General Stated Complaint: GenMedical IVET: 4 Review of Systems All systems reviewed & are unremarkable except as noted in HPI and below Constitutional Constitutional: Denies chills and Denies fever(s) Cardiovascular Cardiovascular: Denies chest pain and Denies dyspnea Respiratory Respiratory: Denies cough and Denies dyspnea Gastrointestinal Gastrointestinal: Denies abdominal pain, Denies nausea and Denies vomiting Musculoskeletal Musculoskeletal: Denies joint swelling PFSH All Active Problems (Updated 11/26/21 @ 12:30 by Juan Carlos Perkins MD) General weakness (Acute) COVID (Acute) GERD (gastroesophageal reflux disease) (Chronic) Hyperreflexia (Acute) Parkinsonism (Acute) Yeast dermatitis (Acute) 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) Medical History Acid reflux Anemia Atelectasis BPH (benign prostatic hyperplasia) Dysphagia BRIGID on CPAP Traumatic brain injury Surgical History S/P decompression of ulnar nerve at elbow S/P left hemicolectomy (~12/25/20) Family History Mother Heart disease Social History Smoking/Tobacco Use Status: Never Smoking risk assessment performed?: Yes Alcohol Intake: never Substance use type: does not use Household members: caregiver Number of Children: 0 current occupation: Disabled Other: Lives with Caregiver Lucia Do you feel safe at home: Yes Do you feel safe in your relationship?: Yes Exam Const General: no acute distress Orientation: alert HENMT Head: normal to inspection Ears: external ears normal General nose exam: external nose normal Mouth: moist mucous membranes Eyes General: appearance normal, both eyes and all related structures Neck Neck: normal visual inspection Resp Effort & Inspection: normal respiratory effort and able to speak in complete sentences Cardio Rate: regular rate Skin General skin exam: no rashes or lesions noted Neuro General: patient alert and patient oriented x3 Extrem General: normal to inspection Psych Mental Status: mental status grossly normal Course Vital Signs Vital signs: Vital Signs Temperature 36.5 C 11/26/21 09:22 Pulse 66 11/26/21 09:22 Respiratory Rate 15 11/26/21 09:22 Blood Pressure 140/68 11/26/21 09:22 Pulse Oximetry 98 11/26/21 09:22 Temperature 36.5 C 11/26/21 09:22 Temperature Source Oral 11/26/21 09:22 Pulse 66 11/26/21 09:22 Respiratory Rate 15 11/26/21 09:22 Respiratory Effort 11/26/21 09:36 Blood Pressure 140/68 11/26/21 09:22 Blood Pressure Position Sitting 11/26/21 09:22 Pulse Oximetry 98 11/26/21 09:22 Oxygen Delivery Method Room Air 11/26/21 09:22 Oxygen Flow Rate 0 11/26/21 09:22 Pain Level 0 11/26/21 09:22
[2021-11-26 09:57] LABS: BE (Venous) 6 mmol/L (-2-3); HCO3 (Venous) 32 mmol/L (23-28); O2 Sat (Venous) 48 %; TCO2 (Venous) 30 mmol/L (24-29); pH (Venous) 7.33 (7.31-7.41); pO2 (Venous) 27 mmHg
[2021-11-26] MEDS: LORazepam 2 MG/ML VIAL 1 MG IVP (09:57)
[2021-11-26 09:58] LABS: Abs Immature Grans 0.01 10^3/uL (0.0-0.06); Absolute Basophil Count 0.02 10^3/uL (0.0-0.2); Absolute Eosinophil Count 0.04 10^3/uL (0.0-0.7); Absolute Neutrophil Count 2.88 10^3/uL (1.2-6.7); Basophils % 0.5; HGB 13.4 g/dL (13.5-17.5); Immature Grans % 0.3; Lymphocytes % 17.7; MCH 30.2 pg (27.0-33.0); MCHC 32.7 % (32.0-36.0); MCV 92 fL (80-95); MPV 9.5 fL (8.0-11.0); Monocytes % 7.6; Neutrophils % 72.9; Platelet Count 212 10^3/uL (130-400); RBC 4.44 10^6/uL (4.36-5.78); RDW 12.1 % (11.8-14.1); RDW-SD 41.4 fL; WBC 3.95 10^3/uL (4.4-10.8)
[2021-11-26 10:00] LABS: Lactate 1.1 mmol/L (0.6-1.4); pCO2 (Venous) 62 mmHg (41-51)
[2021-11-26 10:21] LABS: ALT 29 U/L (16-63); AST 22 U/L (15-37); Albumin 3.8 g/dL (3.4-5.0); Alkaline Phosphatase 74 U/L (46-116); Anion Gap 6.8 mmol/L (3-11); BUN 14 mg/dL (7-18); Bilirubin, Total 0.4 mg/dL (0.2-1.0); CO2 32.2 mmol/L (21.0-32.0); CREATININE 0.7 mg/dL (0.70-1.30); Calcium 9.3 mg/dL (8.5-10.1); Chloride 97 mmol/L (98-107); Estimated GFR 99.12 (mL/min/1.73m2); Glucose 88 mg/dL (74-106); Magnesium 1.7 mg/dL (1.8-2.4); Potassium 4.1 mmol/L (3.5-5.1); Sodium 136 mmol/L (136-145); TSH (W/Ref FT4) 0.97 uIU/mL (0.36-3.74); Total Protein 7.7 g/dL (6.4-8.2); Troponin I < 50 ng/L (<or=60)
[2021-11-26 10:37] LABS: Influenza A PCR Negative (Negative); Influenza B PCR Negative (Negative); RSV PCR Negative (Negative)
[2021-11-26 10:47] LABS: COVID-19 PCR Positive (Negative)
--- NOTE | 2021-11-26 10:50 | DI.MRI_ITS ---
Exam(s) MR BRAIN WO EXAM: MR BRAIN WO CLINICAL HISTORY: general weakness, left hemireflexia TECHNIQUE: Multiplanar multisequence MRI of the brain was performed. COMPARISON: No exams were available for comparison FINDINGS: VENTRICLES AND EXTRA AXIAL SPACES: Normal in size and morphology for the patient's age. MIDLINE SHIFT: None. CEREBRAL PARENCHYMA: Mild atrophy. Minimal white matter changes of small vessel disease. No focus o f restricted diffusion to suggest acute infarct. No space-occupying lesion identified. HEMORRHAGE: None. BRAINSTEM/CEREBELLUM: Normal. CALVARIUM: Normal. VISUALIZED PARANASAL SINUSES/MASTOIDS:Clear. [place]: Normal flow void. PITUITARY GLAND: Unremarkable. OTHER FINDINGS: None. IMPRESSION: Unremarkable MRI of the brain. DATA REPOSITORY:
[2021-11-26 12:04] LABS: Bilirubin Negative (Negative); Blood Negative (Negative); Clarity Clear (Clear); Glucose Negative (Negative); Ketones Negative (Negative); Leukocyte Esterase Negative (Negative); Nitrite Negative (Negative); Specific Gravity 1.015 (1.005-1.025); Urobilinogen 0.2 EU/dL (Up TO 0.2)
--- NOTE | 2021-11-27 08:51 | NUR.NOTE ---
Nursing Note: Lucia Hammond, caregiver of patient, called asking if a liter of fluid had been given to patient during visit. Had Marlee Zhao RN look at chart and it does not look like the patient received any. Lucia was told this.
[2021-11-27 11:18] LABS: Lyme Ab w Rflx to Lyme Confirm Negative (Negative)
[2021-11-28 21:01] LABS: Anaplasma phagocytophilum Negative (Negative); B. miyamotoi PCR Negative (Negative); Babesia divergens/MO-1 Negative (Negative); Babesia duncani Negative (Negative); Babesia microti Negative (Negative); Ehrlichia chaffeensis Negative (Negative); Ehrlichia ewingii/canis Negative (Negative); Ehrlichia muris eauclairensis Negative (Negative)
== END 2021-11-26 12:42 | disposition home or self-care (01) ==
PROVIDERS: Emergency Provider Emergency Medicine; PCP Neuromusculoskeletal Medicine & OMM
DX: U07.1 COVID-19 (principal); R53.1 Weakness; R29.2 Abnormal reflex
CPT/HCPCS: 36415; 80053; 82805; 87637; 87798; 93005; 96361; 96374; 99284; 99285; 70551; 71046; 81003; 83605; 83735; 84443; 84484; 85025; 86618; 93010; J2060

== ENCOUNTER 2021-12-09 21:30 | Inpatient (IN) | payer MEDICARE, MEDICAID, SELFPAY ==
[2021-12-09] VITALS (9 sets, daily range): BP systolic 125–150; BP diastolic 60–79; PULSE 62–79; RESP 11–17; TEMP 36.3; O2SAT 96
[2021-12-09 22:05] LABS: Abs Immature Grans 0.02 10^3/uL (0.0-0.06); Absolute Basophil Count 0.01 10^3/uL (0.0-0.2); Absolute Eosinophil Count 0.04 10^3/uL (0.0-0.7); Absolute Lymphocyte Count 0.55 10^3/uL (1.2-3.4); Absolute Monocyte Count 0.37 10^3/uL (0.1-0.8); Absolute Neutrophil Count 6.98 10^3/uL (1.2-6.7); Basophils % 0.1; Eosinophils % 0.5; HCT 34.4 % (40.0-50.0); HGB 12.3 g/dL (13.5-17.5); Immature Grans % 0.3; Lymphocytes % 6.9; MCH 30.6 pg (27.0-33.0); MCHC 35.8 % (32.0-36.0); MCV 86 fL (80-95); MPV 9.6 fL (8.0-11.0); Monocytes % 4.6; Neutrophils % 87.6; Platelet Count 199 10^3/uL (130-400); RBC 4.02 10^6/uL (4.36-5.78); RDW 11.4 % (11.8-14.1); RDW-SD 35.5 fL; WBC 7.97 10^3/uL (4.4-10.8)
--- NOTE | 2021-12-09 22:06 | ED.GENADUL_ITS ---
Discharge Plan Disposition Patient Disposition: STILL A PATIENT Discharge Details Clinical Impression: Acute hyponatremia Primary Care Provider: Shon Larios ED Provider: Conchita Ibrahim Home Meds and New Rx's Prescriptions: No Action tamsulosin 0.4 mg capsule 0.4 mg PO DAILY esomeprazole magnesium [Nexium] 40 mg capsule,delayed release(DR/EC) 40 mg PO DAILY risperidone [Risperdal] 0.5 mg tablet 0.5 mg PO QPM ketoconazole 2 % cream 1 applic topical DAILY PRN desmopressin 0.2 mg tablet 0.4 mg PO QPM aripiprazole [Abilify] 10 mg Tablet 10 mg PO DAILY solifenacin [Vesicare] 10 mg Tablet 10 mg PO DAILY fluoxetine 20 mg capsule 20 mg PO DAILY Label Comments: TAKE ONE CAPSULE BY MOUTH EVERY DAY polyethylene glycol 3350 17 gram Powder In Packet 17 g PO DAILY Qty: 100 3RF Rx Instructions: take daily and as needed BID melatonin 3 mg tablet 3 mg PO QPM Medical Decision Making 71-year-old male with a past medical history of parkinsonism, Gastelum esophagus, colostomy, GERD and hyperreflexia with recent history of COVID on November 26 presents to the ER accompanied by his caregiver with chief complaint of acute onset of nausea vomiting which began around 4 PM this afternoon. He has had 3 episodes of emesis since then. He does complain of some achiness in his abdomen. CBC, CMP, lipase, normal saline, 1 L Zofran ordered. Will consider CT abdomen pelvis to rule out obstruction. 2229: Lab called with a critical sodium result of 119. CBC is largely at baseline patient does appear to be an slightly anemic but hem oglobin 12.3 hematocrit 34.4 which is consistent with patient's previous labs, sodium 119, potassium 3.9 chloride 85, anion gap 4.7, BUN 13 creatinine 0.6, glucose 126 magnesium is 1.4 which he appears to be chronically low. Lipase is 42. A COVID pending. I did discuss the lab results and possible need for admission with caregiver who is at bedside who verbalizes understanding. Patient does take MiraLAX daily which could be a cause and caregiver also reports that he has had increased thirst and water intake which is unlike him. Care is to be signed out to ER physician Dr. Perkins pending CT result and probable admission for hyponatremia. Medical Records Medical records reviewed: Yes I reviewed the patient's medical records. Lab Data Lab results reviewed: Yes I reviewed the patient's lab results. Labs: Laboratory Tests Range/Units 12/09/21 12/09/21 21:55 21:55 WBC (4.4-10.8) 10^3/uL 7.97 RBC (4.36-5.78) 10^6/uL 4.02 L Hgb (13.5-17.5) g/dL 12.3 L Hct (40.0-50.0) % 34.4 L MCV (80-95) fL 86 MCH (27.0-33.0) pg 30.6 MCHC (32.0-36.0) % 35.8 RDW (11.8-14.1) % 11.4 L Plt Count (130-400) 10^3/uL 199 MPV (8.0-11.0) fL 9.6 Immature Gran % 0.3 Neutrophils % 87.6 Lymphocytes % 6.9 Monocytes % 4.6 Eosinophils % 0.5 Basophils % 0.1 Nucleated RBC % (0.0-0.3) % 0.0 Absolute Neutrophils (1.2-6.7) 10^3/uL 6.98 H Absolute Lymphocytes (1.2-3.4) 10^3/uL 0.55 L Absolute Monocytes (0.1-0.8) 10^3/uL 0.37 Absolute Eosinophils (0.0-0.7) 10^3/uL 0.04 Absolute Basophils (0.0-0.2) 10^3/uL 0.01 Sodium (136-145) mmol/L 119 L* Potassium (3.5-5.1) mmol/L 3.9 Chloride (98-107) mmol/L 85 L Carbon Dioxide (21.0-32.0) mmol/L 29.3 Anion Gap (3-11) mmol/L 4.7 BUN (7-18) mg/dL 13 Creatinine (0.70-1.30) mg/dL 0.6 L Est GFR (CKD-EPI 2020) (mL/min/1.73m2) 103.85 Glucose (74-106) mg/dL 126 H Calcium (8.5-10.1) mg/dL 8.7 Magnesium (1.8-2.4) mg/dL 1.4 L Total Bilirubin (0.2-1.0) mg/dL 0.9 AST (15-37) U/L 18 ALT (16-63) U/L 19 Alkaline Phosphatase (46-116) U/L 64 Total Protein (6.4-8.2) g/dL 7.1 Albumin (3.4-5.0) g/dL 3.8 Lipase (73-393) U/L 42 HPI General Mode of arrival: ambulatory . Date/Time Provider Initiated Documentation: 12/09/21 21:31 . Limitations to Documentation: no limitations . Information obtained by: patient, family (Caregiver), RN notes reviewed and old records reviewed . HPI Narrative: 71-year-old male with a past medical history of parkinsonism, Gastelum esophagus, colostomy, GERD and hyperreflexia with recent history of COVID on November 26 presents to the ER accompanied by his caregiver with chief complaint of acute onset of nausea vomiting which began around 4 PM this afternoon. He has had 3 episodes of emesis since then. He does complain of some achiness in his abdomen. He does normally have loose stools. He was on antibiotics at the end of October. He does have poor dentition which is a chronic ongoing issue. Denies fever, no obvious blood in the stool his abdomen is soft he does have bowel sounds bilaterally. He does have a history of recurrent intestinal obstruction. Caregiver reports that he was complaining of some lower back pain yesterday. She denies any chest pain or shortness of breath. She also reports patient has not been himself since Covid diagnosis 13 days ago She also reports increased thirst and water intake. Related Data Home Medications Medication Instructions Recorded Confirmed esomeprazole magnesium 40 mg 40 mg PO DAILY 12/25/20 12/09/21 capsule,delayed release (Nexium) fluoxetine 20 mg capsule 20 mg PO DAILY 12/25/20 12/09/21 risperidone 0.5 mg tablet 0.5 mg PO QPM 12/25/20 12/09/21 (Risperdal) tamsulosin 0.4 mg capsule 0.4 mg PO DAILY 12/25/20 12/09/21 desmopressin 0.2 mg tablet 0.4 mg PO QPM 01/01/21 12/09/21 polyethylene glycol 3350 17 gram 17 g PO DAILY #100 ea 06/22/21 12/09/21 oral powder packet ketoconazole 2 % topical cream 1 applic topical DAILY PRN 10/09/21 12/09/21 melatonin 3 mg tablet 3 mg PO QPM 10/09/21 12/09/21 aripiprazole 10 mg tablet (Abilify) 10 mg PO DAILY 11/26/21 12/09/21 solifenacin 10 mg tablet (Vesicare) 10 mg PO DAILY 11/26/21 12/09/21 Previous Rx's Medication Instructions Recorded polyethylene glycol 3350 17 gram 17 g PO DAILY #100 ea 06/22/21 oral powder packet Allergies Allergy/AdvReac Type Severity Reaction Status Date / Time No Known Allergies Allergy Verified 12/09/21 21:44 General Stated Complaint: Nausea/Vomit/Diar IVET: 3 Review of Systems All systems reviewed & are unremarkable except as noted in HPI and below Gastrointestinal Gastrointestinal: Reports nausea, Reports vomiting and Denies hematemesis PFSH All Active Problems (Updated 12/09/21 @ 23:10 by Conchita Ibrahim NP) General weakness (Acute) COVID (Acute) Acute hyponatremia (Acute) GERD (gastroesophageal reflux disease) (Chronic) Hyperreflexia (Acute) Parkinsonism (Acute) Yeast dermatitis (Acute) 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) Medical History Acid reflux Anemia Atelectasis BPH (benign prostatic hyperplasia) Dysphagia BRIGID on CPAP Traumatic brain injury Surgical History S/P decompression of ulnar nerve at elbow S/P left hemicolectomy (~12/25/20) Family History Mother Heart disease Social History Smoking/Tobacco Use Status: Never Smoking risk assessment performed?: Yes Alcohol Intake: never Substance use type: does not use Household members: caregiver Number of Children: 0 current occupation: Disabled Other: Lives with Caregiver Lucia Do you feel safe at home: Yes Do you feel safe in your relationship?: Yes Exam Narrative Exam Narrative: Constitutional: Alert and oriented x2 at baseline. Appears stated age. Normal body habitus. Appears frail, dry mucous membranes. Head: Normocephalic, no trauma. Eyes: Pupils PERRL, Red reflex noted, EOM's intact. Eyelids symmetrical without lesions, discharge, or swelling. ENT: Bilateral TM's WNL, External ear normal to inspection, no mastoid TTP, swelling, or erythema, Nasal turbinates WNL, no nasal discharge. Poor dentition, no obvious abscess or drainage or purulent foul smell, he denies any pain to his jaw, posterior pharynx WNL, no exudate. Chest: RRR, Normal S1, S2, distal pulses intact. Resp: Lungs clear to auscultation bilaterally, no wheezes, rales, or rhonchi. Abdomen: Soft, non-distended, Normoactive bowel sounds 2 quads. Colostomy noted to left lower quadrant with loose brown-colored stool noted in the colostomy bag. Musculoskeletal: Shuffling gait, consistent with parkinsonian Skin: No suspicious rashes or lesions. Capillary refill less than 2 sec. Neurologic: Cranial nerves II-XII intact. Alert and oriented x 2. Motor: Mild intention tremor, sensory: Intact bilaterally all 4 extremities. Hematologic/Lymphatic: No ecchymosis, no lymphadenopathy. Course Vital Signs Vital signs: Vital Signs Temperature 36.3 C L 12/09/21 21:41 Pulse 76 12/09/21 21:41 Respiratory Rate 16 12/09/21 21:41 Blood Pressure 150/79 H 12/09/21 21:41 Pulse Oximetry 96 12/09/21 21:41 Temperature 36.3 C L 12/09/21 21:41 Temperature Source Temporal Artery Scan 12/09/21 21:41 Pulse 76 12/09/21 21:41 Respiratory Rate 16 12/09/21 21:41 Respiratory Effort 12/09/21 21:41 Blood Pressure 150/79 H 12/09/21 21:41 Blood Pressure Position Sitting 12/09/21 21:41 Pulse Oximetry 96 12/09/21 21:41 Pain Level 9 12/09/21 21:41 Lab/Test Results Lab/Test Results: Laboratory Tests Range/Units 12/09/21 21:55 WBC (4.4-10.8) 10^3/uL 7.97 RBC (4.36-5.78) 10^6/uL 4.02 L Hgb (13.5-17.5) g/dL 12.3 L Hct (40.0-50.0) % 34.4 L MCV (80-95) fL 86 MCH (27.0-33.0) pg 30.6 MCHC (32.0-36.0) % 35.8 RDW (11.8-14.1) % 11.4 L Plt Count (130-400) 10^3/uL 199 MPV (8.0-11.0) fL 9.6 Immature Gran % 0.3 Neutrophils % 87.6 Lymphocytes % 6.9 Monocytes % 4.6 Eosinophils % 0.5 Basophils % 0.1 Nucleated RBC % (0.0-0.3) % 0.0 Absolute Neutrophils (1.2-6.7) 10^3/uL 6.98 H Absolute Lymphocytes (1.2-3.4) 10^3/uL 0.55 L Absolute Monocytes (0.1-0.8) 10^3/uL 0.37 Absolute Eosinophils (0.0-0.7) 10^3/uL 0.04 Absolute Basophils (0.0-0.2) 10^3/uL 0.01 Sign Out Sign Out Data: Sign Out Comment: Pending CT abd/Pelvis and admission for new onset hyponatremia. History of Parkinson's, GERD, has a colostomy. Presents with acute nausea vomiting which began around 4 PM this afternoon. He has had 3 episodes prior to arrival. Does normally have loose stools and takes MiraLAX daily and reports increased thirst and drinking more water than usual. Sodium is 119 which is new. Patient was seen here on November 26 and diagnosed with COVID at that time he had a normal sodium level. Last updated by Conchita Ibrahim NP at 12/09/21 23:09
--- NOTE | 2021-12-09 22:15 | DI.CT_ITS ---
Exam(s) CT ABDOMEN PELVIS W EXAM: CT ABDOMEN PELVIS W CLINICAL HISTORY: Vomiting, R/O Obstruction. TECHNIQUE: Imaging Protocol: Axial computed tomography images with coronal and sagittal reformatted images were created and reviewed CONTRAST MATERIAL: Intravenous: Omnipaque 350 Contrast volume:100 ml Oral: no COMPARISON: CT CT ABDOMEN PELVIS W from 06/18/2021 FINDINGS: ABDOMEN: Exam is somewhat limited by patient motion. Streak artifact related to patient arm positioning. Lung Bases: Mild atelectasis. Liver: Normal density. No measurable mass. Gallbladder and biliary tract: No radiodense calculus or dilation. Pancreas: Somewhat atrophic., no abnormal calcifications or inflammatory process. Spleen: Normal. Kidneys: Normal size, contour and axis. No radiodense stones or obstructive uropathy. Stable appeara nce of dilatation of the distal left ureter. Small renal cysts. No suspicious masses seen. Adrenal glands: No masses seen. Abdominal Aorta: Abdominal portion non-dilated. PELVIS: Bladder: Distended. No gross wall thickening. No calculi.No focal mass. Bowel: Left lower quadrant ostomy. No obstruction or bowel wall thickening. Appendix normal. Large quantity of stool. Arm some fluid is seen in the stomach. There is no small bowel dilatation. Peritoneal cavity: No ascites, collection or mesenteric inflammatory response. Bones: Degenerative disc changes and mild scoliosis. Reproductive organs: Prostate mildly enlarged. Lymph nodes: Unremarkable. Impression: No evidence of bowel obstruction. Left lower quadrant ostomy is unremarkable. There is a large patricia tity of stool. Distended urinary bladder. RADIATION DOSE DELIVERED: 713.43mGy.cm Total DLP DATA REPOSITORY: All CT scans at this facility are submitted to the National Radiology Data Registry (NRDR) Dose Index Registry (DIR) with the [employer] (ACR). RADIATION OPTIMIZATION: All CT scans at this facility use at least one of these dose optimization te chniques: automated exposure control; mA and/or kV adjustment per patient size (includes targeted exa ms where dose is matched to clinical indication); or iterative reconstruction.
[2021-12-09 22:27] LABS: ALT 19 U/L (16-63); AST 18 U/L (15-37); Albumin 3.8 g/dL (3.4-5.0); Alkaline Phosphatase 64 U/L (46-116); Anion Gap 4.7 mmol/L (3-11); BUN 13 mg/dL (7-18); Bilirubin, Total 0.9 mg/dL (0.2-1.0); CO2 29.3 mmol/L (21.0-32.0); CREATININE 0.6 mg/dL (0.70-1.30); Calcium 8.7 mg/dL (8.5-10.1); Chloride 85 mmol/L (98-107); Estimated GFR 103.85 (mL/min/1.73m2); Glucose 126 mg/dL (74-106); Lipase 42 U/L (73-393); Magnesium 1.4 mg/dL (1.8-2.4); Potassium 3.9 mmol/L (3.5-5.1); Total Protein 7.1 g/dL (6.4-8.2)
[2021-12-09 22:28] LABS: Sodium 119 mmol/L (136-145)
[2021-12-09] MEDS: Normal Saline 1,000 ML 1000 ML IV (22:29)
[2021-12-09] MEDS: Ondansetron 4 MG/2 ML VIAL IVP (22:29)
[2021-12-09] MEDS: MAGNESIUM SULFATE 1 GM/100 ML BAG IVPB (22:48)
[2021-12-09 23:07] LABS: Source Nasal/Nares
[2021-12-09] MEDS: Omnipaque 350 MG/ML 100 ML BTL IJ (23:28)
[2021-12-09 23:37] LABS: COVID-19 PCR Negative (Negative)
--- NOTE | 2021-12-09 23:40 | W.PM.HP.N ---
Date of service: 12/09/21 Time of Service: 23:40 Assessment and Plan Assessment and plan (1) Acute hyponatremia: Status: Acute Assessment and plan: Fatigue and weakness in setting of hyponatremia, which may be directly responsible for some of his symptoms. The cause of the hyponatremia is not entirely clear at present, but the history suggests that the directive to consume more water is playing a role, though not at quantity levels to constitute psychogenic polydipsia. I suspect he may have an underlying predisposition to hyponateremia (? SSRI) which was made manifest by recent directive to drink more water. This though at this point is somewhat speculative. At any rate I would continue saline and trend Na, with target approx 6 mEq correction over next day. Will also provisionally hold Prozac until more clear what role this may be playing. Reviewed ADs with web master, she has no information in this regard, will continue Full Code status per prior history. History of Present Illness History of Present Illness Chief Complaint: vomiting, weakness Narrative: 71 male with h/o Parkinsons, seen here 2 weeks [employer] with nonspecific fatigue, found to be COVID +. Not a candidate for Paxlovid due to multiple potential drug interactions, d/c'ed to home as he was marginally symptomatic. Comes in today with one day of vomiting (three episodes), no abdominal pain. Caregiver reports ongoing generalized fatigue and general overall decline in function over past month or so. Notably she reports that during visit to local care facility he was told to drink more water as he was felt to be dehydrated. In ER has had no vomiting. Findings of note for absence of fever, benign abdominal exam; labs of note for Na 119 (136 two weeks [employer]) and Mg 1.4. CT abdomen unrevealing, urinalysis negative. .Patient given dose of Zofran and 1L NS. I was asked to evaluate for admission. Patient states he feels OK at present. Caregiver reports he has been drinking three 18 oz glasses of water per day along with occasional additional cups of water. No new meds, but notably has been on Prozac residential. Review of Systems Narrative: per HPI PFSH All Active Problems General weakness (Acute) COVID (Acute) Acute hyponatremia (Acute) GERD (gastroesophageal reflux disease) (Chronic) Hyperreflexia (Acute) Parkinsonism (Acute) Yeast dermatitis (Acute) 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) Medical History Acid reflux Anemia Atelectasis BPH (benign prostatic hyperplasia) Dysphagia BRIGID on CPAP Traumatic brain injury Surgical History S/P decompression of ulnar nerve at elbow S/P left hemicolectomy (~12/25/20) Family History Mother Heart disease Social History Smoking/Tobacco Use Status: Never Smoking risk assessment performed?: Yes Alcohol Intake: never Substance use type: does not use Household members: caregiver Number of Children: 0 current occupation: Disabled Other: Lives with Caregiver Lucia Do you feel safe at home: Yes Do you feel safe in your relationship?: Yes Meds Allergies and Home Medications Allergies Allergy/AdvReac Type Severity Reaction Status Date / Time No Known Allergies Allergy Verified 12/09/21 21:44 Home Medications Medication Instructions Recorded Confirmed Type esomeprazole magnesium 40 mg 40 mg PO DAILY 12/25/20 12/09/21 History capsule,delayed release (Nexium) fluoxetine 20 mg capsule 20 mg PO DAILY 12/25/20 12/09/21 History risperidone 0.5 mg tablet 0.5 mg PO QPM 12/25/20 12/09/21 History (Risperdal) tamsulosin 0.4 mg capsule 0.4 mg PO DAILY 12/25/20 12/09/21 History desmopressin 0.2 mg tablet 0.4 mg PO QPM 01/01/21 12/09/21 History polyethylene glycol 3350 17 gram 17 g PO DAILY #100 ea 06/22/21 12/09/21 Rx oral powder packet ketoconazole 2 % topical cream 1 applic topical DAILY PRN 10/09/21 12/09/21 History melatonin 3 mg tablet 3 mg PO QPM 10/09/21 12/09/21 History aripiprazole 10 mg tablet (Abilify) 10 mg PO DAILY 11/26/21 12/09/21 History solifenacin 10 mg tablet (Vesicare) 10 mg PO DAILY 11/26/21 12/09/21 History Exam Narrative Exam Narrative: 125/60, 62, 36.3, 11, 96% RA. HEENT atraumatic; neck supple; lungs clear; heart RRR; abdomen soft and NT, colostomy patent; extremities w/o edema; neuro limited conversation but does answer questions appropriately, moves all 4s Results Labs Result diagrams: 12/09/21 21:55 12/09/21 21:55 Labs: Laboratory Results - last 24 hr 12/09/21 12/09/21 12/09/21 21:55 21:55 23:05 WBC 7.97 RBC 4.02 L Hgb 12.3 L Hct 34.4 L MCV 86 MCH 30.6 MCHC 35.8 RDW 11.4 L Plt Count 199 MPV 9.6 Immature Gran % 0.3 Neutrophils % 87.6 Lymphocytes % 6.9 Monocytes % 4.6 Eosinophils % 0.5 Basophils % 0.1 Nucleated RBC % 0.0 Absolute Neutrophils 6.98 H Absolute Lymphocytes 0.55 L Absolute Monocytes 0.37 Absolute Eosinophils 0.04 Absolute Basophils 0.01 Sodium 119 L* Potassium 3.9 Chloride 85 L Carbon Dioxide 29.3 Anion Gap 4.7 BUN 13 Creatinine 0.6 L Est GFR (CKD-EPI 2020) 103.85 Glucose 126 H Calcium 8.7 Magnesium 1.4 L Total Bilirubin 0.9 AST 18 ALT 19 Alkaline Phosphatase 64 Total Protein 7.1 Albumin 3.8 Lipase 42 COVID-19 Source Nasal/Nares SARS-CoV-2 (PCR) Negative Last Vital Signs Temp 36.3 C L 12/09/21 21:41 Pulse 62 12/09/21 23:02 Resp 11 L 12/09/21 23:02 BP 125/60 12/09/21 23:02 Pulse Ox 96 12/09/21 21:41
--- NOTE | 2021-12-09 23:46 | DI.VRAD_ITS ---
PROCEDURE INFORMATION: Exam: CT Abdomen And Pelvis With Contrast Exam date and time: 12/09/2021 11:19 PM Age: 71 years old Clinical indication: Vomiting, R/O obstruction TECHNIQUE: Imaging protocol: Computed tomography of the abdomen and pelvis with contrast. Radiation optimization: All CT scans at this facility use at least one of these dose optimization techniques: automated exposure control; mA and/or kV adjustment per patient size (includes targeted exams where dose is matched to clinical indication); or iterative reconstruction. Contrast material: OMNI 350; Contrast volume: 100 ml; Contrast route: INTRAVENOUS (IV); COMPARISON: CT ABDOMEN PELVIS W 06/18/2021 11:58 PM FINDINGS: Pleural spaces: Trace right pleural fluid. Small hazy patches of infiltrate or atelectasis within the right lower lobe. Liver: Normal. No mass. Gallbladder and bile ducts: Normal. No calcified stones. No ductal dilation. Pancreas: Pancreatic atrophy. No pancreatic ductal dilatation. Spleen: Normal. No splenomegaly. Adrenal glands: Normal. No mass. Kidneys and ureters: Bilateral renal cortical stable benign simple cysts. No hydronephrosis. Stable mild distension of the distal left ureter Stomach and bowel: No generalized ileus or bowel obstruction. 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 Prior left hemicolectomy. Left abdominal colostomy. Appendix: Normal appendix. Intraperitoneal space: No free air. No significant fluid collection. Vasculature: Unremarkable. No abdominal aortic aneurysm. Lymph nodes: No enlarged lymph nodes. Urinary bladder: Unremarkable as visualized. Reproductive: Unremarkable as visualized. Bones/joints: Mild spinal degenerative changes. Soft tissues: Unremarkable. IMPRESSION: 1. No generalized ileus or bowel obstruction. 2. No acute intra-abdominal or pelvic process. 3. Small hazy patches of infiltrate or atelectasis within the right lower lobe. Dictated and Authenticated by: Arvind Yusuf MD. Ordering:STEVEN Arango MD
[2021-12-09 23:51] LABS: Bilirubin Negative (Negative); Blood Negative (Negative); Clarity Clear (Clear); Glucose Negative (Negative); Ketones 15 mg/dL (Negative); Leukocyte Esterase Negative (Negative); Nitrite Negative (Negative); Specific Gravity 1.015 (1.005-1.025); Urobilinogen 0.2 EU/dL (Up TO 0.2); pH 7.5 (5-8)
--- NOTE | 2021-12-09 23:51 | W.EDPROG ---
Date of service: 12/09/21 Time of Service: 23:51 Medical Decision Making pt signed out to me pending ct which shows no acute abdominal findings, noted atelectasis vs infiltrates in right lower lobe but has no cough or fevers so do not feel abx indicated. Discussed with hospitalist for hyponatremia and accepts for admission Imaging Data Radiologic Study: Attestation: I personally reviewed and interpreted this imaging study as follows: Imaging: CT Scan Radiologist's impression: IMPRESSION: 1. No generalized ileus or bowel obstruction. 2. No acute intra-abdominal or pelvic process. 3. Small hazy patches of infiltrate or atelectasis within the right lower lobe. Sign Out Sign Out Data: Sign Out Comment: Pending CT abd/Pelvis and admission for new onset hyponatremia. History of Parkinson's, GERD, has a colostomy. Presents with acute nausea vomiting which began around 4 PM this afternoon. He has had 3 episodes prior to arrival. Does normally have loose stools and takes MiraLAX daily and reports increased thirst and drinking more water than usual. Sodium is 119 which is new. Patient was seen here on November 26 and diagnosed with COVID at that time he had a normal sodium level. Last updated by Conchita Ibrahim NP at 12/09/21 23:09 Discharge Plan Disposition Patient Disposition: [facility] INPATIENT Condition: Stable Discharge Details Clinical Impression: Acute hyponatremia Primary Care Provider: Shon Larios ED Provider: Juan Carlos Perkins Home Meds and New Rx's Prescriptions: No Action tamsulosin 0.4 mg capsule 0.4 mg PO DAILY esomeprazole magnesium [Nexium] 40 mg capsule,delayed release(DR/EC) 40 mg PO DAILY risperidone [Risperdal] 0.5 mg tablet 0.5 mg PO QPM ketoconazole 2 % cream 1 applic topical DAILY PRN desmopressin 0.2 mg tablet 0.4 mg PO QPM aripiprazole [Abilify] 10 mg Tablet 10 mg PO DAILY solifenacin [Vesicare] 10 mg Tablet 10 mg PO DAILY fluoxetine 20 mg capsule 20 mg PO DAILY Label Comments: TAKE ONE CAPSULE BY MOUTH EVERY DAY polyethylene glycol 3350 17 gram Powder In Packet 17 g PO DAILY Qty: 100 3RF Rx Instructions: take daily and as needed BID melatonin 3 mg tablet 3 mg PO QPM
[2021-12-10] VITALS (15 sets, daily range): BP systolic 120–146; BP diastolic 61–79; PULSE 67–91; RESP 13–19; TEMP 35.5–37.1; O2SAT 94–98
--- NOTE | 2021-12-10 00:03 | NUR.NOTE ---
Nursing Note: Pt has urinated times x2. Urine came back with keytones so far. Pt did have elevated fasting BS at 126 and has been very thirsty as well. Spoke with ER physician who will discuss with hospitalist who is admitting Pt.
--- NOTE | 2021-12-10 01:48 | NUR.NOTE ---
Pt was brought to room 208 accompanied by ornamental plaster sticker Lucia [phone], whom the patient lives with. She was able to help answer admission questions. Lucia states that the patients Legal Guardian was contacted for information regarding power of state attorney and advanced directives.
[2021-12-10] MEDS: Normal Saline 1,000 ML 100 ML IV (02:00)
[2021-12-10 06:42] LABS: Sodium 131 mmol/L (136-145)
[2021-12-10 07:35] LABS: Anion Gap 5.5 mmol/L (3-11); BUN 8 mg/dL (7-18); CO2 29.5 mmol/L (21.0-32.0); CREATININE 0.5 mg/dL (0.70-1.30); Chloride 96 mmol/L (98-107); Estimated GFR 109.73 (mL/min/1.73m2); Glucose 98 mg/dL (74-106); Potassium 4.1 mmol/L (3.5-5.1); Sodium 131 mmol/L (136-145)
[2021-12-10] MEDS: DEXTROSE 5%-WATER 500 ML 1000 ML IV ×2 (08:06→11:29)
[2021-12-10] MEDS: Esomeprazole 40 MG CAPCR PO (08:35)
[2021-12-10] MEDS: ARIPiprazole 5 MG TAB 10 MG PO (08:35)
[2021-12-10] MEDS: Tamsulosin 0.4 MG CAPCR PO (08:35)
[2021-12-10] MEDS: Polyethylene Glycol 3350 17 GM PACKET PO (08:35)
[2021-12-10 10:27] LABS: Anion Gap 6.1 mmol/L (3-11); BUN 7 mg/dL (7-18); CO2 27.9 mmol/L (21.0-32.0); CREATININE 0.7 mg/dL (0.70-1.30); Chloride 95 mmol/L (98-107); Estimated GFR 99.12 (mL/min/1.73m2); Glucose 136 mg/dL (74-106); Potassium 4.2 mmol/L (3.5-5.1); Sodium 129 mmol/L (136-145)
--- NOTE | 2021-12-10 13:08 | PGE_ITS ---
Date of Service Date of service: 12/10/21 Time of Service: 13:08 Assessment and Plan Assessment and plan (1) Acute hyponatremia: Status: Acute Assessment and plan: I agree w/ Dr. Arteaga's assessment that the acute hyponatremia was combo of being on desmopressin, and polydypsia as the patient was advised by urgent care provider to consume more water to correct what the provider saw as dehydration d/t recent vomiting. Whether the SSRI contributed to this or not is unclear. I reviewed the adverse side effects of Prozac and hyponatremia is not one of them. Neither is hyponatremia a side effect of Abilify. Desmopressin is the only medication that he takes which can cause hyponatremia. We will continue DDAVP 2 mcg SC Q8hr for 24hr until his serum sodium has stabilized. Goal is for serum sodium of 124 to 126 then just restrict his free water and allow to equilibrate. I need to get more info from his PCP about why he is on desmopressin. However given his diuretic response to taking him off desmopressin, he may have diabetes insipidus Subjective Subjective Interval history since last seen: I met w/ Miki's guardian as well as his caregiver. Miki has been on desmopressin for years but neither recalls exactly why. His guardian thought that it was for mood disorder. I explained to her that desmopressin is usually used for diabetes insipidus. It is interesting that once his desmopressin was stopped and he was put on normal saline his sodium over corrected from 119 to 131. I have since put him on DDAVP, but restricted his free water and have given him couple boluses of D5W. He is alert and acting appropriate, he is sitting up in his chair and eating lunch. I explained to his caregiver and his guardian that the goal is to correct his low sodium gradually and to not over correct. I will check serial BMP to monitor his response to my initiation of D5W and desmopressin. Exam Narrative Exam Narrative: Justus is alert/oriented to person/place Lungs: clear Heart: RRR Abdomen: soft, nontender Neruro: he has visible tremors in his right hand Objective Last Vital Signs Temp 36.9 C 12/10/21 07:35 Pulse 70 12/10/21 07:35 Resp 16 12/10/21 07:35 BP 120/71 12/10/21 07:35 Pulse Ox 98 12/10/21 07:35 Laboratory Results - last 24 hr 12/09/21 12/09/21 12/09/21 21:55 21:55 23:05 WBC 7.97 RBC 4.02 L Hgb 12.3 L Hct 34.4 L MCV 86 MCH 30.6 MCHC 35.8 RDW 11.4 L Plt Count 199 MPV 9.6 Immature Gran % 0.3 Neutrophils % 87.6 Lymphocytes % 6.9 Monocytes % 4.6 Eosinophils % 0.5 Basophils % 0.1 Nucleated RBC % 0.0 Absolute Neutrophils 6.98 H Absolute Lymphocytes 0.55 L Absolute Monocytes 0.37 Absolute Eosinophils 0.04 Absolute Basophils 0.01 Sodium 119 L* Potassium 3.9 Chloride 85 L Carbon Dioxide 29.3 Anion Gap 4.7 BUN 13 Creatinine 0.6 L Est GFR (CKD-EPI 2020) 103.85 Glucose 126 H Calcium 8.7 Magnesium 1.4 L Total Bilirubin 0.9 AST 18 ALT 19 Alkaline Phosphatase 64 Total Protein 7.1 Albumin 3.8 Lipase 42 Urine Color Urine Clarity Urine pH Ur Specific [place] Urine Protein Urine Ketones Urine Blood Urine Nitrite Urine Bilirubin Urine Urobilinogen Ur Leukocyte Esterase Urine Glucose COVID-19 Source Nasal/Nares SARS-CoV-2 (PCR) Negative 12/09/21 12/10/21 12/10/21 23:40 05:49 05:49 WBC RBC Hgb Hct MCV MCH MCHC RDW Plt Count MPV Immature Gran % Neutrophils % Lymphocytes % Monocytes % Eosinophils % Basophils % Nucleated RBC % Absolute Neutrophils Absolute Lymphocytes Absolute Monocytes Absolute Eosinophils Absolute Basophils Sodium 131 L D 131 L Potassium 4.1 Chloride 96 L Carbon Dioxide 29.5 Anion Gap 5.5 BUN 8 Creatinine 0.5 L Est GFR (CKD-EPI 2020) 109.73 Glucose 98 Calcium 9.0 Magnesium Total Bilirubin AST ALT Alkaline Phosphatase Total Protein Albumin Lipase Urine Color Yellow Urine Clarity Clear Urine pH 7.5 Ur Specific [place] 1.015 Urine Protein Negative Urine Ketones 15 H Urine Blood Negative Urine Nitrite Negative Urine Bilirubin Negative Urine Urobilinogen 0.2 Ur Leukocyte Esterase Negative Urine Glucose Negative COVID-19 Source SARS-CoV-2 (PCR) 12/10/21 10:10 WBC RBC Hgb Hct MCV MCH MCHC RDW Plt Count MPV Immature Gran % Neutrophils % Lymphocytes % Monocytes % Eosinophils % Basophils % Nucleated RBC % Absolute Neutrophils Absolute Lymphocytes Absolute Monocytes Absolute Eosinophils Absolute Basophils Sodium 129 L Potassium 4.2 Chloride 95 L Carbon Dioxide 27.9 Anion Gap 6.1 BUN 7 Creatinine 0.7 Est GFR (CKD-EPI 2020) 99.12 Glucose 136 H Calcium 9.0 Magnesium Total Bilirubin AST ALT Alkaline Phosphatase Total Protein Albumin Lipase Urine Color Urine Clarity Urine pH Ur Specific [place] Urine Protein Urine Ketones Urine Blood Urine Nitrite Urine Bilirubin Urine Urobilinogen Ur Leukocyte Esterase Urine Glucose COVID-19 Source SARS-CoV-2 (PCR)
[2021-12-10 14:59] LABS: Anion Gap 4.4 mmol/L (3-11); BUN 12 mg/dL (7-18); CO2 28.6 mmol/L (21.0-32.0); CREATININE 0.6 mg/dL (0.70-1.30); Calcium 8.7 mg/dL (8.5-10.1); Chloride 93 mmol/L (98-107); Estimated GFR 103.85 (mL/min/1.73m2); Glucose 110 mg/dL (74-106); Potassium 4.5 mmol/L (3.5-5.1); Sodium 126 mmol/L (136-145)
[2021-12-10 15:00] LABS: Magnesium 1.7 mg/dL (1.8-2.4)
--- NOTE | 2021-12-10 15:10 | PHA.REVIEW2 ---
Pharmacy Admission Review - Admission Clinical Review (Last Reviewed 12/09/21 @ 23:49 by Yonas Arteaga MD) Acute hyponatremia (Acute) No Known Allergies Allergy (Verified 12/09/21 21:44) Resuscitation Status Full Code Height 5 ft 11 in Weight 71 kg - Renal Dosing Renal Dosing: BUN 12 mg/dL (7-18) 12/10/21 14:35 Creatinine 0.6 mg/dL (0.70-1.30) L 12/10/21 14:35 Medications needing adjustments: Reviewed - Anticoagulation Anticoagulation: Hgb 12.3 g/dL (13.5-17.5) L 12/09/21 21:55 Hct 34.4 % (40.0-50.0) L 12/09/21 21:55 Plt Count 199 10^3/uL (130-400) 12/09/21 21:55 Creatinine 0.6 mg/dL (0.70-1.30) L 12/10/21 14:35 - Relevant Labs Sodium 126 mmol/L (136-145) L 12/10/21 14:35 Potassium 4.5 mmol/L (3.5-5.1) 12/10/21 14:35 Chloride 93 mmol/L (98-107) L 12/10/21 14:35 Magnesium 1.7 mg/dL (1.8-2.4) L 12/10/21 14:35 - DM Control DM Control: Glucose 110 mg/dL (74-106) H 12/10/21 14:35
--- NOTE | 2021-12-10 16:31 | PDOC.CMIN ---
- If Service Date Differs Date of service: 12/10/21 Time of Service: 16:31 Care Management Initial Assess REASON FOR HOSPITALIZATION:: Weakness, hyponatremia
--- NOTE | 2021-12-10 17:06 | PDOC.CMIN ---
- If Service Date Differs Date of service: 12/10/21 Time of Service: 17:06 Care Management Initial Assess REASON FOR HOSPITALIZATION:: Weakness, Hyponatremia PAST MEDICAL HISTORY/PAST SURGICAL HISTORY:: Medical History . Acid reflux. Anemia. Atelectasis. BPH (benign prostatic hyperplasia). Traumatic brain injury. Surgical History . S/P left hemicolectomy (~12/25/20) PREVIOUS FUNCTIONAL STATUS/SOCIAL/FAMILY SUPPORTS:: Justus lives in [place], [place] with his home provider Lucia Hammond. His guardian is Sushma Kirk. He has a history of a TBI and requires assistance with his ADL's. Justus ambulates independently and doesn't require any assistive devices. Additionally, Justus has a correctional case manager through [facility] [employer] services and [facility] anticipates that they will provide additional support services in the home if needed. CURRENT FUNCTIONAL STATUS:: Blake is ambulating the hallways with his caregiver, both are pleasant in interaction. Has patient been provided with info about the portal/API?: Yes Did the patient sign up for the portal?: No CODE STATUS:: Full Code INSURANCE COVERAGE / FINANCIAL ISSUES:: Medicaid. Medicare CURRENT HOME/COMMUNITY SERVICES/EQUIPMENT:: [employer] [facility]; Case Management as well as Home Provider: Lucia Hammond PRIMARY CARE PHYSICIAN:: Shon Larios POTENTIAL DISCHARGE NEEDS:: Follow up appointments. PATIENT/FAMILY EDUCATION NEEDS:: Review discharge and colostomy instructions, limitations and plan to follow up with community providers. ask me three. ANTICIPATED BARRIERS TO DISCHARGE:: None identified. TRANSPORTATION:: Via private vehicle with caregiver. PLAN:: Blake will discharge home with Lucia his home provider, when medically ready per . Anticipate he will have new [facility] services if indicated and transport via private vehicle with Lucia.
[2021-12-10 18:12] LABS: Anion Gap 3.9 mmol/L (3-11); BUN 14 mg/dL (7-18); CO2 28.1 mmol/L (21.0-32.0); CREATININE 0.7 mg/dL (0.70-1.30); Chloride 93 mmol/L (98-107); Estimated GFR 99.12 (mL/min/1.73m2); Glucose 132 mg/dL (74-106); Potassium 4.3 mmol/L (3.5-5.1); Sodium 125 mmol/L (136-145)
[2021-12-10] MEDS: risperiDONE 0.5 MG TAB PO (19:52)
[2021-12-10] MEDS: Melatonin 3 MG TAB PO (19:52)
[2021-12-10] MEDS: Normal Saline Flush 10 ML SYR IVP ×3 (19:52→23:31)
[2021-12-10] MEDS: Ondansetron 4 MG/2 ML VIAL IVP (22:24)
[2021-12-10 22:41] LABS: Anion Gap 5.5 mmol/L (3-11); BUN 15 mg/dL (7-18); CO2 26.5 mmol/L (21.0-32.0); CREATININE 0.7 mg/dL (0.70-1.30); Chloride 90 mmol/L (98-107); Estimated GFR 99.12 (mL/min/1.73m2); Glucose 153 mg/dL (74-106); Potassium 3.6 mmol/L (3.5-5.1)
[2021-12-10 22:46] LABS: Sodium 122 mmol/L (136-145)
[2021-12-11] VITALS (11 sets, daily range): BP systolic 102–135; BP diastolic 63–79; PULSE 67–77; RESP 16–20; TEMP 36–37.1; O2SAT 92–98
--- NOTE | 2021-12-11 | DI.CT_ITS ---
Exam(s) CT HEAD WO EXAM: CT HEAD WO CLINICAL HISTORY: seizure. TECHNIQUE: Imaging Protocol: Axial computed tomography images with coronal and sagittal reformatted images were created and reviewed COMPARISON: No exams were available for comparison FINDINGS: There is some motion artifact limiting this examination. There are no skull fractures. There is no fluid in the visualized paranasal sinuses. There is no evidence of intracranial hemorrhage, mass effect, or shift of midline structures. There are no extra-axial fluid collections. The ventricles are not enlarged or shifted and there is no blo od within the ventricular system nor within the basal cisterns. IMPRESSION: No acute intracranial findings on this noninfused CT scan of the brain. RADIATION DOSE DELIVERED: 820.56mGy.cm Total DLP DATA REPOSITORY: All CT scans at this facility are submitted to the National Radiology Data Registry (NRDR) Dose Index Registry (DIR) with the [employer] (ACR). RADIATION OPTIMIZATION: All CT scans at this facility use at least one of these dose optimization te chniques: automated exposure control; mA and/or kV adjustment per patient size (includes targeted exa ms where dose is matched to clinical indication); or iterative reconstruction.
--- NOTE | 2021-12-11 | DI.RAD_ITS ---
Exam(s) XR PORTABLE CHEST AP EXAM: XR PORTABLE CHEST AP CLINICAL HISTORY: hypoxia post seizure -- ? aspiration. TECHNIQUE: 2D digital imaging was performed. COMPARISON: CR XR CHEST 2V PA LATERAL from 11/26/2021 FINDINGS: Single AP portable view. Heart size is upper normal. The mediastinum is not widened. Left hemidiaphragm is now elevated and there appears to be some infiltrate in the left lower lobe and blunting of left costophrenic angle indicating small left pleural effusion. Opposite-right lung is clear. IMPRESSION: Left lower lobe infiltrate and small left pleural effusion. Elevated left hemidiaphragm. Recommend nonportable PA and lateral views when clinically possible. DATA REPOSITORY: RADIATION DOSE DELIVERED:
--- NOTE | 2021-12-11 | DI.MRI_ITS ---
Exam(s) MR BRAIN WO EXAM: MR BRAIN WO CLINICAL HISTORY: new onset seizure TECHNIQUE: Multiplanar multisequence MRI of the brain was performed. COMPARISON: MR MR BRAIN WO from 11/26/[address] HEAD WO from 12/11/2021 FINDINGS: CEREBRAL PARENCHYMA: There is no evidence of intracranial hemorrhage, mass effect, or shift of midline structures. There are no extra-axial fluid collections. Ventricles are not enlarged or shifted. There is no significant focal signal abnormality in the cerebellar hemispheres nor within the kalpana, m idbrain, and thalami. There is no abnormal signal abnormality in the periventricular white matter. There is no significant focal signal abnormality evident on diffusion imaging to suggest acute ischem ic event. Coronal sequence: No evidence of obvious mesial temporal sclerosis PITUITARY GLAND: No mass nor parasellar abnormality. No obvious abnormality in the cavernous sinuses. FLOW VOIDS: The expected flow void are noted. No evidence of obvious aneurysm nor obvious vascular ma lformation. PARANASAL SINUSES: The visualized paranasal sinuses appear unremarkable. No obvious finding ORBITS: No obvious findings. IMPRESSION: No significant intracranial findings on this noninfused MRI scan of the brain. DATA REPOSITORY:
[2021-12-11 01:27] LABS: Anion Gap 3.7 mmol/L (3-11); BUN 14 mg/dL (7-18); CO2 30.3 mmol/L (21.0-32.0); CREATININE 0.6 mg/dL (0.70-1.30); Calcium 8.7 mg/dL (8.5-10.1); Chloride 92 mmol/L (98-107); Estimated GFR 103.85 (mL/min/1.73m2); Glucose 119 mg/dL (74-106); Potassium 3.9 mmol/L (3.5-5.1); Sodium 126 mmol/L (136-145)
[2021-12-11 04:39] LABS: Anion Gap 14.2 mmol/L (3-11); BUN 14 mg/dL (7-18); CO2 23.8 mmol/L (21.0-32.0); CREATININE 0.9 mg/dL (0.70-1.30); Calcium 8.8 mg/dL (8.5-10.1); Chloride 89 mmol/L (98-107); Estimated GFR 91.88 (mL/min/1.73m2); Glucose 161 mg/dL (74-106); Magnesium 1.6 mg/dL (1.8-2.4); Potassium 3.9 mmol/L (3.5-5.1); Sodium 127 mmol/L (136-145)
--- NOTE | 2021-12-11 05:04 | W.EVENT ---
Date of service: 12/11/21 Time of Service: 05:04 Event Note: Called for seizure. Events reviewed. Briefly, admitted late 12/09 with hyponatremia in setting of chronic use of hs desmopressin (unknown indication), SSRI and recent directive to consume larger quantities of water. Initial Na 119. Desmopressin and SSRI held and patient received NS @100/hr. Approximately 7 hours later Na 131. Since has received D5W and desmopressin with Na ranging in low-mid 120s, most recent (prior to seizure) 126. Clinically he has been described as awake, conversant with no focal deficits. While with patient this morning nurse noted approximately 5 seconds of generalized seizure activity, with patient transiently cyanotic thereafter. When I first saw patient he was post-ictal. Sent for head CT (negative to my read, formal read pending); labs of note for Na 127, K 3.9, glucose 161, Ca 8.8, Mg 1.6. 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 Modest hypomagnesemia may also be playing a role. The hypoxia is of uncertain etiology, but likely related to transient cyanosis -- ? aspiration. Plan: 1. Seizure: replenish Magnesium, seizure precautions, continue slow correction Na.; 2. Hypoxia: CXR, follow for development of fever Time Spent with Patient Time spent in critical care(minutes): 70 Time Spent Included: Coordination of care, Chart review, Documenting critically ill care, Time at immediate bedside and Discussing critically ill care with other medical staff
--- NOTE | 2021-12-11 05:06 | DI.VRAD_ITS ---
PROCEDURE INFORMATION: Exam: CT Head Without Contrast Exam date and time: 12/11/2021 4:38 AM Age: 71 years old Clinical indication: Other: Seizure TECHNIQUE: Imaging protocol: Computed tomography of the head without contrast. Radiation optimization: All CT scans at this facility use at least one of these dose optimization techniques: automated exposure control; mA and/or kV adjustment per patient size (includes targeted exams where dose is matched to clinical indication); or iterative reconstruction. COMPARISON: MR BRAIN WO 11/26/2021 10:24 AM FINDINGS: Brain: No acute intracranial hemorrhage, mass-effect, midline shift, or extra-axial collection is seen. The ulrich white matter differentiation appears preserved. Cerebral ventricles: The ventricular system and basilar cisterns appear appropriate in size and configuration. Paranasal sinuses: The visualized paranasal sinuses appear well-aerated. Mastoid air cells: The mastoid air cells appear well-aerated. Auditory system: The middle ear cavities appear clear. Soft tissue density material within the right external auditory canal probably represents cerumen; however, direct inspection is recommended for definitive evaluation. Orbital cavities: The globes and intraorbital structures appear grossly intact. Bones/joints: The bony calvarium appears intact. No depressed skull fracture is seen. Soft tissues: No significant scalp lesion is seen. IMPRESSION: No acute intracranial abnormality seen. Dictated and Authenticated by: Wayne Kelly MD. Ordering:NICOLAS Branham MD
[2021-12-11] MEDS: Normal Saline 500 ML 30 ML IV (05:25)
[2021-12-11] MEDS: Normal Saline Flush 10 ML SYR IVP ×5 (05:25→20:10)
[2021-12-11] MEDS: MAGNESIUM SULFATE 2 GM/50 ML BAG IVPB (05:25)
--- NOTE | 2021-12-11 05:58 | DI.VRAD_ITS ---
PROCEDURE INFORMATION: Exam: XR Chest Exam date and time: 12/11/2021 5:21 AM Age: 71 years old Clinical indication: Other: Hypoxia post seizure, ? aspiration TECHNIQUE: Imaging protocol: Radiologic exam of the chest. Views: 1 view. COMPARISON: CR XR CHEST 2V PA LATERAL 11/26/2021 10:57 AM FINDINGS: Limitations: The examination is somewhat technically limited. The examination was obtained with submaximal inspiration. There appears to be material overlying the examination as well. The patient's chin obscures the left apex. Positioning is rotated. Lungs: There are small patchy bilateral opacities, more prominent on the left. It is uncertain if this appearance represents artifact or actual patchy airspace disease. No region of lokesh pulmonary consolidation is seen. Pleural spaces: Within the limits of the exam, no pleural effusion or pneumothorax is demonstrated. The left lung apex is partially obscured by the patient's chin. Heart/Mediastinum: The heart appears mildly enlarged. Diaphragm: There is elevation of the left hemidiaphragm. Bones/joints: The visualized bony structures appear grossly unremarkable, as seen. IMPRESSION: 1. Technically limited exam. Scattered small patchy opacities. It is uncertain if these represent an artifactual appearance created by overlying material or actual patchy airspace disease. Imaging could be repeated with attention to the technique, as clinically warranted, for improved evaluation. 2. No region of lokesh consolidation is seen. Dictated and Authenticated by: Wayne Kelly MD. Ordering:NICOLAS Branham MD
[2021-12-11] MEDS: ACETAMINOPHEN 1,000 MG/100 ML BTL 400 MG IVPB ×2 (06:39→15:51)
--- NOTE | 2021-12-11 07:10 | NUR.NOTE ---
Nursing Note: Edwardo BazziPrincess live. 71 Y.O. Male. 0350: this commercial lines underwriter enters patient room. patient is awake, states he needs to void, but has already been incontinent. patient is changed at this time and repositioned for comfort, as patient is complaining of back pain. 0400: patient cries out, and then all extremities extend and begin shaking, appearing to be a tonic clonic seizure. patient is immediately rolled onto his side, and more help is called into the room. O2 is applied to the patient as the patient begins to become cyanotic, and then a full set of vital signs are taken, showing increased BP and HR and an O2 sat of 78%. nonrebreather applied at 15 L/min. MD is called to bedside. Seizure activity lasts approximately 45 seconds, and then patient enters post ictal phase of loud, labored breathing. lab comes to bedside to draw blood. siderails raised and seizure pads applied. suction tubing at bedside. 0430: patient is brought down for a head ct, and then back to the room for a portable chest xray. both unremarkable. labs show mag of 1.6, and magnesium IV is ordered per MD. New order for tylenol IV as well for patient's back pain. 0450: post ictal phase ends and patient falls asleep. O2 3 L o2 via oxi-mask, patient satting 97%.
--- NOTE | 2021-12-11 07:48 | W.PM.PROGNOT ---
Date of Service Date of service: 12/11/21 Time of Service: 07:48 Assessment and Plan Assessment and plan (1) Seizure: Status: Acute Assessment and plan: No previous history of seizures. Likely causes rapid fluctuations in his electrolytes. We will check an MRI scan to rule out any CORE LAYING MACHINE OPERATOR pathology such as CPM. We will consult neurology and check an EEG. Resume his desmopressin and monitor his electrolytes closely. Professional time spent interviewing and examining patient, discussion of goals of care with hospital team (care management, nursing and consulting professionals) was 30 minutes. (2) Acute hyponatremia: Status: Acute Assessment and plan: Latest serum sodium 127 not at a level that we would typically expect for seizure however given rapid fluctuations in his sodium very well could have triggered a seizure. Repeat BMP is pending this morning. (3) Hypomagnesemia: Status: Acute Assessment and plan: Patient given parenteral bolus. Repeat level pending Subjective Subjective Interval history since last seen: Patient has seizure earlier this morning with several seconds of generalized tonic-clonic activity. Binder Stripper Machine was called to evaluate the patient patient was postictal. Patient had emergent CT of his head which showed no focal findings. Repeat electrolytes showed serum sodium of 127 and a magnesium 1.6. Magnesium was corrected with 2 g. After return from CT patient was mildly hypoxic and was placed on oxygen facemask. This morning patient is still lethargic but opens his eyes response to simple commands and has no focal motor deficits. Neurology consult will be requested this morning patient will have a MRI of the brain and EEG. No antiepileptic drugs indicated at this time. We will monitor his electrolytes throughout the day. Patient to be restarted on his home dose of desmopressin. Exam Narrative Exam Narrative: Justus is lethargic with sonorous respirations but is easily awakened. He vocalizes and follows commands. Lungs are clear to auscultation Heart is regular rate and rhythm Abdomen soft nondistended Neuro no facial asymmetry no dysarthric speech normal strength and range of motion of all 4 extremities. Objective Last Vital Signs Temp 36.0 C L 12/11/21 07:20 Pulse 72 12/11/21 07:20 Resp 18 12/11/21 07:20 BP 105/63 12/11/21 07:20 Pulse Ox 96 12/11/21 07:20 Laboratory Results - last 24 hr 12/10/21 12/10/21 12/10/21 10:10 14:35 14:35 Sodium 129 L 126 L Potassium 4.2 4.5 Chloride 95 L 93 L Carbon Dioxide 27.9 28.6 Anion Gap 6.1 4.4 BUN 7 12 Creatinine 0.7 0.6 L Est GFR (CKD-EPI 2020) 99.12 103.85 Glucose 136 H 110 H Calcium 9.0 8.7 Magnesium 1.7 L 12/10/21 12/10/21 12/11/21 17:56 22:25 01:10 Sodium 125 L 122 L* 126 L Potassium 4.3 3.6 3.9 Chloride 93 L 90 L 92 L Carbon Dioxide 28.1 26.5 30.3 Anion Gap 3.9 5.5 3.7 BUN 14 15 14 Creatinine 0.7 0.7 0.6 L Est GFR (CKD-EPI 2020) 99.12 99.12 103.85 Glucose 132 H 153 H 119 H Calcium 9.0 9.0 8.7 Magnesium 12/11/21 12/11/21 12/11/21 04:21 04:21 14:00 Sodium 127 L Cancelled Potassium 3.9 Cancelled Chloride 89 L Cancelled Carbon Dioxide 23.8 Cancelled Anion Gap 14.2 H Cancelled BUN 14 Cancelled Creatinine 0.9 Cancelled Est GFR (CKD-EPI 2020) 91.88 Cancelled Glucose 161 H Cancelled Calcium 8.8 Cancelled Magnesium 1.6 L
[2021-12-11] MEDS: Polyethylene Glycol 3350 17 GM PACKET PO (08:20)
[2021-12-11] MEDS: ARIPiprazole 5 MG TAB 10 MG PO (08:21)
[2021-12-11] MEDS: Esomeprazole 40 MG CAPCR PO (08:22)
[2021-12-11] MEDS: Tamsulosin 0.4 MG CAPCR PO (08:22)
[2021-12-11 10:09] LABS: BUN 14 mg/dL (7-18); CREATININE 0.5 mg/dL (0.70-1.30); Calcium 8.8 mg/dL (8.5-10.1); Chloride 90 mmol/L (98-107); Estimated GFR 109.73 (mL/min/1.73m2); Glucose 123 mg/dL (74-106); Magnesium 2.2 mg/dL (1.8-2.4); Potassium 4.1 mmol/L (3.5-5.1); Sodium 126 mmol/L (136-145)
[2021-12-11] MEDS: diazePAM 2 MG TAB PO (11:21)
--- NOTE | 2021-12-11 11:59 | NUR.NOTE ---
Guardian and tamale machine feeder have been notified and updated with the change in patients condition regarding seizure activity overnight. Guardian and caregiver made aware of plans moving forward which include EEG, MRI, Neurology consults. Guardian requesting to be updated with results of testing and consultation.
--- NOTE | 2021-12-11 12:21 | PDOC.EEG ---
Neurology EEG EEG: [facility] Department of Neurology INPATIENT EEG REPORT Date of Recordin12/11/21 Interpreting Physician: Dr. Meena Martínez Reason for study: Blake is a 71 year-old with history of childhood TBI, admitted for hyponatremia with seizure-like activity this am. Current Medications: Current Medications Aripiprazole (Aripiprazole 5 Mg Tab) 10 mg PO DAILY [facility] Last Admin: 12/11/21 08:21 Dose: 10 mg Desmopressin Acetate (Desmopressin 0.2 Mg Tab) 0.2 mg PO QPM RADHA Dimethicone/Zinc Oxide (Momo Protect Cream 142 Gm Tube) 0 gm TP PRN PRN Esomeprazole Magnesium (Esomeprazole 40 Mg Capcr) 40 mg PO DAILY [facility] Last Admin: 12/11/21 08:22 Dose: 40 mg Sodium Chloride (Saline 500ml Bag) 500 mls @ 0 mls/hr IV PRN PRN Last Infusion: 12/11/21 08:22 Dose: 0 mls/hr Acetaminophen (Ofirmev) 1,000 mg in 100 mls @ 400 mls/hr IVPB Q8H PRN PRN Last Infusion: 12/11/21 06:54 Dose: Infused IV Miscellaneous Supplies (Iv Access) 1 each IV DIRECTED [facility] Melatonin (Melatonin 3 Mg Tab) 3 mg PO QPM [facility] Last Admin: 12/10/21 19:52 Dose: 3 mg Ondansetron HCl (Ondansetron 4 Mg/2 Ml Vial) 4 mg IVP Q4H PRN PRN Last Admin: 12/10/21 22:24 Dose: 4 mg Polyethylene Glycol (Polyethylene Glycol 3350 17 Gm Packet) 17 gm PO DAILY RADHA Last Admin: 12/11/21 08:20 Dose: 17 gm Risperidone (Risperidone 0.5 Mg Tab) 0.5 mg PO QPM RADHA Last Admin: 12/10/21 19:52 Dose: 0.5 mg Sodium Chloride (Normal Saline Flush 10 Ml Syr) 0 ml IVP PRN PRN Last Admin: 12/11/21 08:22 Dose: 10 ml Solifenacin (Solifenacin 5 Mg Tab) 10 mg PO DAILY RADHA Last Admin: 12/11/21 08:22 Dose: 10 mg Tamsulosin HCl (Tamsulosin 0.4 Mg Capcr) 0.4 mg PO DAILY RADHA Last Admin: 12/11/21 08:22 Dose: 0.4 mg METHODS: A 21 channel digitized electroencephalogram was performed in the [facility] Med/Surg Floor or ICU. The 10/20 international system of electrode placement was used and bipolar and referential electrode montages were recorded. In addition to EEG the patient was monitored for EKG and lateral/vertical eye movements. Activation procedures of photic stimulation and hyperventilation were performed if applicable. Video was used during activation procedures and during events where applicable. The duration of the recording was 30 minutes. DESCRIPTION OF EEG: The patient was noted to be asleep during the recording though sleep architecture was absent. Patient did appear to awake by end of recording solely based on presence of muscle artifact, but no PDR could be determined. There were frequent bursts of high amplitude, fast >9Hz, generalized nffeliacr-kob-ippc discharges with a a right frontal predominance up to 1sec long. At times, these ran in rhythmic trains <10seconds in duration. No clinical correlation was make during these trains, though patient did not appear to follow any commands throughout the recording. Activating Procedures: Photic stimulation was performed which produced a symmetrical posterior driving response at various flash frequencies. Hyperventilation was not performed. EKG: EKG revealed normal sinus rhythm. INTERPRETATION: This EEG is abnormal due to: #1. Frequent bursts of generalized ihugkydot-pfy-hpxx discharges with a a right frontal predominance. At times these ran in trains and with clinical correlation could indicate seizure activity or even status epilepticus. #2. Lack of PDR and normal awake/asleep architecture. 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 These discharges at times occurred in rhythmic trains which with the right clinical symptoms, could indicate ongoing seizure activity or event status epilepticus. Clinical correlation is advised. These results were called into hospitalist Dr. Singh at 1222 today 12/11/21. Meena Martínez MD
[2021-12-11] MEDS: levETIRAcetam 3,000 MG in Normal Saline 100 ML 400 MG IVPB (12:48)
--- NOTE | 2021-12-11 15:01 | PHA.REVIEW2 ---
Pharmacy Admission Review - Admission Clinical Review (Last Reviewed 12/09/21 @ 23:49 by Yonas Arteaga MD) Hypomagnesemia (Acute) Seizure (Acute) Acute hyponatremia (Acute) No Known Allergies Allergy (Verified 12/09/21 21:44) Resuscitation Status Full Code Height 5 ft 11 in Weight 71 kg - Renal Dosing Renal Dosing: BUN Cancelled 12/11/21 14:00 Creatinine Cancelled 12/11/21 14:00 Medications needing adjustments: Reviewed (crcl = 69, no adjustments needed) - Anticoagulation Anticoagulation: Hgb 12.3 g/dL (13.5-17.5) L 12/09/21 21:55 Hct 34.4 % (40.0-50.0) L 12/09/21 21:55 Plt Count 199 10^3/uL (130-400) 12/09/21 21:55 Creatinine Cancelled 12/11/21 14:00 DVT Prophylaxis: N/A Therapeutic Anticoagulation: N/A - Opiate Usage Evaluate Pain Scale/Pains Meds: N/A - Relevant Labs Sodium Cancelled 12/11/21 14:00 Potassium Cancelled 12/11/21 14:00 Chloride Cancelled 12/11/21 14:00 Magnesium 2.2 mg/dL (1.8-2.4) 12/11/21 09:50 Electrolytes, C-Reactive P, ESR: Reviewed (Na = 126 today (119 yesterday, increased to 131). DDAVP restarted) - DM Control DM Control: Glucose Cancelled 12/11/21 14:00 DM Control: N/A - Cardiac Review BP, HR, EF%: Reviewed - Qtc Review QTc: Reviewed (QTc = 434 11/26/21) If Elevated, List meds needing intervention: n/a - IV to PO Switch IV Medications: Reviewed (keppra given IV, switch to PO when able) - Home Meds Relevent Home Meds Not ordered & why?: fluoxetine held - contributing to hyponatremia?. ddavp restarted at lower dose (0.2 mg vs 0.4 mg) - Current meds Current Medication Order Review: Reviewed (keppra started today for seizure. 3000 mg given this afternoon, 1000 mg Q12h to continue)
--- NOTE | 2021-12-11 15:43 | W.NEUROCONSU ---
Date of service: 12/11/21 Time of Service: 15:43 Assessment and Plan Assessment and plan (1) First time seizure: Status: Acute (2) Parkinsonism: Status: Acute Assessment and plan: #1. First seizure. Multiple seizure risk factors including TBI, age, and now with hyponatremia that likely tipped him over the edge. s/p LEV 3000mg x1. Continue LEV 1000mg BID. ADRs discussed. Discussed seizure precautions and what to do in the event of another seizure with caregiver and guardian. #2. Neuroleptic Parkinsonism. Will plan for exam tomorrow to assess need for medication, though when last seen in September, I did not think he needed. Recommend PT/OT. He has f/up with neurology already scheduled for December and will f/up as scheduled. . 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 Guardian: Sushma Norton CM: Fallon Marks Home Care Provider: Lucia (?2011 - present) Aung is a 70 year-old man with childhood TBI with cognitive impairment under guardianship, mood disorder, Barretts/GERD, chronic constipation s/p bowel obstruction and colostomy Dec 2020, and BRIGID on CPAP. I recently met him in September for his neuroleptic induced Parkinsonsism. I was able to speak with both Lcuia at bedside and later with Sushma by phone today. In late October, Blake contracted COVID. Since then, Lucia and Sushma have noticed significant changes - generalized weakness, lethargy, and mood changes - less grumpy, sad looking, lack of desire to listen/enjoy his music, and a hypersensitivity to all inputs/increased startle (loud noises, faster driving, etc). He was brought to [facility] on 12/09/21 for nausea, emesis, and abdominal pain in addition to the symptoms above. He was found to have Na 119 which has been attributed to the combination of desmopressin and polydypsia (he was told to increase fluids with his COVID). His sodium overcorrected initially but then was corrected at a slower rate. He was seemingly well yesterday evening and appeared back to baseline per Lucia - smiling, more energy, etc. This am just before 5am, Blake was witnessed to have s brief generalized tonic-clonic seizure with post-ictal sedation/confusion and hypoxia. He has no prior history of seizures. He has no history of staring spells. He was remotely on Depakote for mood which his chronic tremor has been attributed to, however, he has been off Depakote >10 years. He otherwise has been sleepy today, complicated by benzo admin for his MRI. He is back to baseline per Lucia. -Labs (12/11/21 at 5am): Na 127, Mag 1.6, glucose 161. -CTH (12/11/21): No acute findings. I reviewed these images personally and this is my personal interpretation. -MRI brain w/o (11/27/21): No acute findings. I reviewed these images personally and this is my personal interpretation. -MRI brain (12/11/21): No acute findings.I reviewed these images personally and this is my personal interpretation. -EEG (12/11/21): frequent generalized polyspikes. Review of Systems Unobtainable due to mental condition PFSH All Active Problems (Updated 12/11/21 @ 17:14 by Meena Martínez MD) First time seizure (Acute) Hypomagnesemia (Acute) Seizure (Acute) General weakness (Acute) COVID (Acute) Acute hyponatremia (Acute) GERD (gastroesophageal reflux disease) (Chronic) Hyperreflexia (Acute) Parkinsonism (Acute) Yeast dermatitis (Acute) 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) Medical History Acid reflux Anemia Atelectasis BPH (benign prostatic hyperplasia) Dysphagia BRIGID on CPAP Traumatic brain injury Surgical History S/P decompression of ulnar nerve at elbow S/P left hemicolectomy (~12/25/20) Family History Mother Heart disease Social History Smoking/Tobacco Use Status: Never Smoking risk assessment performed?: Yes Alcohol Intake: never Substance use type: does not use Household members: caregiver Number of Children: 0 current occupation: Disabled Other: Lives with Caregiver Lucia Do you feel safe at home: Yes Do you feel safe in your relationship?: Yes Visit Medication and Allergies Active Medications Generic Name Dose Route Start Last Admin Trade Name Freq PRN Reason Stop Dose Admin Aripiprazole 10 mg 12/10/21 08:30 12/11/21 08:21 Aripiprazole 5 Mg Tab PO 10 mg DAILY RADHA Administration Desmopressin Acetate 0.2 mg 12/11/21 20:00 Desmopressin 0.2 Mg Tab PO QPM RADHA Dimethicone/Zinc Oxide 0 gm 12/10/21 00:02 Momo Protect Cream 142 Gm Tube TP PRN PRN Esomeprazole Magnesium 40 mg 12/10/21 08:30 12/11/21 08:22 Esomeprazole 40 Mg Capcr PO 40 mg DAILY RADHA Administration Sodium Chloride 500 mls @ 0 mls/hr 12/09/21 21:48 12/11/21 13:33 Saline 500ml Bag IV 0 mls/hr PRN PRN Infusion As Directed Acetaminophen 1,000 mg in 100 mls @ 400 mls/hr 12/11/21 05:29 12/11/21 06:54 Ofirmev IVPB Infused Q8H PRN PRN Infusion Levetiracetam 1,000 mg/ Sodium 110 mls @ 400 mls/hr 12/12/21 00:00 Chloride IVPB Q12H RADHA IV Miscellaneous Supplies 1 each 12/09/21 22:00 Iv Access IV DIRECTED RADHA Melatonin 3 mg 12/10/21 20:00 12/10/21 19:52 Melatonin 3 Mg Tab PO 3 mg QPM RADHA Administration Ondansetron HCl 4 mg 12/10/21 00:02 12/10/21 22:24 Ondansetron 4 Mg/2 Ml Vial IVP 4 mg Q4H PRN PRN Administration Polyethylene Glycol 17 gm 12/10/21 08:30 12/11/21 08:20 Polyethylene Glycol 3350 17 Gm Packet PO 17 gm DAILY RADHA Administration Risperidone 0.5 mg 12/10/21 20:00 12/10/21 19:52 Risperidone 0.5 Mg Tab PO 0.5 mg QPM RADHA Administration Sodium Chloride 0 ml 12/09/21 21:48 12/11/21 13:33 Normal Saline Flush 10 Ml Syr IVP 10 ml PRN PRN Administration Solifenacin 10 mg 12/10/21 08:30 12/11/21 08:22 Solifenacin 5 Mg Tab PO 10 mg DAILY RADHA Administration Tamsulosin HCl 0.4 mg 12/10/21 08:30 12/11/21 08:22 Tamsulosin 0.4 Mg Capcr PO 0.4 mg DAILY RADHA Administration Allergies No Known Allergies Allergy (Verified 12/09/21 21:44) Exam Narrative Exam Narrative: Physical Exam: Constitutional: sleeping - will plan to perform exam tomorrow Neck: Supple, no meningismus CV: RRR, no murmur Resp: CTAB Abd: Soft, nontender, nondistended Neuro: not tested due to sleepiness Results Last Vital Signs Temp 97.9 F 12/11/21 15:25 Pulse 67 12/11/21 15:25 Resp 20 12/11/21 15:25 BP 103/63 12/11/21 15:25 Pulse Ox 92 12/11/21 15:25 Labs Result diagrams: 12/09/21 21:55 12/11/21 09:50 Labs: Laboratory Results - last 24 hr 12/10/21 12/10/21 12/11/21 17:56 22:25 01:10 Sodium 125 L 122 L* 126 L Potassium 4.3 3.6 3.9 Chloride 93 L 90 L 92 L Carbon Dioxide 28.1 26.5 30.3 Anion Gap 3.9 5.5 3.7 BUN 14 15 14 Creatinine 0.7 0.7 0.6 L Est GFR (CKD-EPI 2020) 99.12 99.12 103.85 Glucose 132 H 153 H 119 H Calcium 9.0 9.0 8.7 Magnesium 12/11/21 12/11/21 12/11/21 04:21 04:21 09:50 Sodium 127 L 126 L Potassium 3.9 4.1 Chloride 89 L 90 L Carbon Dioxide 23.8 30.0 Anion Gap 14.2 H 6.0 BUN 14 14 Creatinine 0.9 0.5 L Est GFR (CKD-EPI 2020) 91.88 109.73 Glucose 161 H 123 H Calcium 8.8 8.8 Magnesium 1.6 L 2.2 12/11/21 14:00 Sodium Cancelled Potassium Cancelled Chloride Cancelled Carbon Dioxide Cancelled Anion Gap Cancelled BUN Cancelled Creatinine Cancelled Est GFR (CKD-EPI 2020) Cancelled Glucose Cancelled Calcium Cancelled Magnesium
--- NOTE | 2021-12-11 15:45 | CHAPLAIN ---
Blake was resting in bed when I visited. His rn patient care (?) was with him. I introduced myself to Blake and he told me he wasn't dying. I explained that he wasn't dying and I was not there because I thought he was, but just to introduce myself and let him know I'm here if I can be of any help. His rn patient care asked if he'd like a prayer and Blake said not now. His rn patient care said staff has been trying to get Blake in a comfortable position but he's had difficulty telling them what he needs to be comfortable. I was able to get a cup of coffee of his caregiver. I will continue to visit.
--- NOTE | 2021-12-11 17:04 | CMPROGNOTE_ITS ---
- If Service Date Differs Date of service: 12/11/21 Time of Service: 17:04 Care Management Progress Note S/O: Blake remains inpatient at this time, reportedly he had a tough day and his oracle database manager, Lucia shared concern for his current course medically. CM continues to follow. A: 71 year old male admitted to [facility] 12/10/21 for Weakness and Hyponatremia P: Blake will discharge home with Lucia his home provider, when medically ready per MD. Anticipate he will have new VNA services if indicated and transport via private vehicle with Lucia.
[2021-12-11] MEDS: Desmopressin 0.2 MG TAB PO (19:55)
[2021-12-11] MEDS: Melatonin 3 MG TAB PO (19:55)
[2021-12-11] MEDS: risperiDONE 0.5 MG TAB PO (22:10)
[2021-12-11 22:27] LABS: Calcium 8.6 mg/dL (8.5-10.1)
[2021-12-11 22:28] LABS: Anion Gap 6.2 mmol/L (3-11); BUN 15 mg/dL (7-18); CO2 27.8 mmol/L (21.0-32.0); CREATININE 0.7 mg/dL (0.70-1.30); Chloride 91 mmol/L (98-107); Estimated GFR 99.12 (mL/min/1.73m2); Glucose 142 mg/dL (74-106); Potassium 3.8 mmol/L (3.5-5.1); Sodium 125 mmol/L (136-145)
--- NOTE | 2021-12-12 | DI.RAD_ITS ---
Exam(s) XR ABDOMEN FLAT UPRIGHT EXAM: XR ABDOMEN FLAT UPRIGHT CLINICAL HISTORY: abdominal distension TECHNIQUE: COMPARISON: CR XR ABDOMEN FLAT UPRIGHT from 06/21/2021 FINDINGS: Three views were obtained. There is a large quantity of fecal material in the right colon. There is mild distension of the remaining portions of the colon period no gross small bowel dilatation. No f ree intraperitoneal air on the upright film. No gross organomegaly. IMPRESSION: Findings are suggestive of constipation. No evidence of bowel obstruction. RADIATION DOSE DELIVERED: Total DLP
[2021-12-12] MEDS: levETIRAcetam 1,000 MG in Normal Saline 100 ML 400 MG IVPB ×2 (00:30→13:01)
[2021-12-12] MEDS: ACETAMINOPHEN 1,000 MG/100 ML BTL 400 MG IVPB ×3 (01:30→21:23)
[2021-12-12 06:47] LABS: Anion Gap 4.1 mmol/L (3-11); BUN 15 mg/dL (7-18); CO2 28.9 mmol/L (21.0-32.0); CREATININE 0.6 mg/dL (0.70-1.30); Calcium 8.8 mg/dL (8.5-10.1); Chloride 92 mmol/L (98-107); Estimated GFR 103.85 (mL/min/1.73m2); Glucose 107 mg/dL (74-106); Magnesium 1.7 mg/dL (1.8-2.4); Sodium 125 mmol/L (136-145)
[2021-12-12] MEDS: Polyethylene Glycol 3350 17 GM PACKET PO ×2 (07:53→19:40)
[2021-12-12] MEDS: ARIPiprazole 5 MG TAB 10 MG PO (07:53)
[2021-12-12] MEDS: Esomeprazole 40 MG CAPCR PO (07:53)
[2021-12-12] MEDS: Normal Saline Flush 10 ML SYR IVP ×3 (07:53→21:48)
[2021-12-12] MEDS: Tamsulosin 0.4 MG CAPCR PO (07:54)
[2021-12-12 08:11] VITALS: BP 119/69; PULSE 77; RESP 16; TEMP 36.7; O2SAT 94
--- NOTE | 2021-12-12 11:14 | PDOC.CMPRO ---
- If Service Date Differs Date of service: 12/12/21 Time of Service: 11:14 Care Management Progress Note S/O: Blake remains inpatient at this time, neuro consulted for seizure yesterday, poor ostomy output; xray ordered-if needed bowel meds will be provided, hydration anticipated as well, close monitoring for hyponatremia, Lucia, his aluminum boats assembler, remains at his bedside. No change to overall plan. CM continues to follow. A: 71 year old male admitted to [facility] 12/10/21 for Weakness and Hyponatremia P: Blake will discharge home with Lucia his home provider, when medically ready per MD. Anticipate he will have new VNA services if indicated and transport via private vehicle with Lucia.
[2021-12-12] MEDS: Lactated Ringers 1,000 ML 100 ML IV (11:50)
--- NOTE | 2021-12-12 15:01 | W.PM.PROGNOT ---
Date of Service Date of service: 12/12/21 Time of Service: 15:01 Assessment and Plan Assessment and plan (1) Acute hyponatremia: Status: Acute (2) First time seizure: Status: Acute Assessment and plan: change iv keppra to po. await Dr. Martínez's visit today. Once his constipation has resolved, he can be dc home w/ neurology follow up. Patient should have renal outpatient consult on his electrolyte problems and use of vasopressin (3) Hypomagnesemia: Status: Acute Assessment and plan: will place on oral supplements and repeat levels (4) Constipation: Status: Resolved Assessment and plan: chronic issue. he takes miralax daily and sometimes bid. In the past Dr. Ozuna has given him small dose of GoLytely. I will give him 500 mL of Go Lytely and give him Relistor and senna. Once his constipation resolves he can be dc home to his caregiver. Abdominal xray was negative for obstruction (5) Parkinsonism: Status: Acute Assessment and plan: Dr. Martínez has indicated consideration for addition of dopaminergic meds. This may help w/ his constipation. Qualifiers: Parkinsonism type: secondary Parkinsonism Secondary Parkinsonism type: neuroleptic-induced Qualified Code(s): G21.11 - Neuroleptic induced parkinsonism (6) GERD (gastroesophageal reflux disease): Status: Chronic Assessment and plan: cont. his PPI (7) Traumatic brain injury: Assessment and plan: long standing hx since childhood; MRI was done and showed no acute findings. He has the milieu for seizures and for DI however this was his first seizure and as far as we know he has never been dx w/ D.I. Qualifiers: Encounter type: sequela Subjective Subjective Interval history since last seen: Patient is back to his baseline. He is alert and conversant w/ his caregiver who is visiting. He is constipated. No abdominal pain or nausea. Eating very well. Sodium level has stabilized at 125. His desmopressin was resumed at lower dose of 0.2 mg nightly. It turns out that he takes this for enuresis. There is no hx of DI however, I suspect that he may have this the way he diuresed once the vasopressin was stopped on admission. Exam Narrative Exam Narrative: Blake is alert and oriented to person/place/circumstances. He appears to be at baseline LUngs: clear heart: RRR Abdomen: soft but very distended w/ active bowel sounds; stoma is pink Extremities: trace edema Objective Last Vital Signs Temp 36.7 C 12/12/21 08:11 Pulse 77 12/12/21 08:11 Resp 16 12/12/21 08:11 BP 119/69 12/12/21 08:11 Pulse Ox 94 12/12/21 08:11 Laboratory Results - last 24 hr 12/11/21 12/12/21 19:13 05:57 Sodium 125 L 125 L Potassium 3.8 4.0 Chloride 91 L 92 L Carbon Dioxide 27.8 28.9 Anion Gap 6.2 4.1 BUN 15 15 Creatinine 0.7 0.6 L Est GFR (CKD-EPI 2020) 99.12 103.85 Glucose 142 H 107 H Calcium 8.6 8.8 Magnesium 1.7 L
[2021-12-12 15:28] VITALS: BP 125/77; PULSE 80; RESP 16; TEMP 37.2; O2SAT 95
[2021-12-12] MEDS: Methylnaltrexone 12 MG/0.6 ML VIAL SC (15:58)
[2021-12-12] MEDS: Senna TAB 1 TAB PO (15:58)
--- NOTE | 2021-12-12 16:47 | PGE_ITS ---
Date of Service Date of service: 12/12/21 Time of Service: 16:47 Assessment and Plan Assessment and plan (1) First time seizure: Status: Acute (2) Parkinsonism: Status: Acute Assessment and plan: #1. First seizure. Multiple seizure risk factors including TBI, age, and now with hyponatremia that likely tipped him over the edge. s/p LEV 3000mg x1. Continue LEV 1000mg BID. #2. Neuroleptic Parkinsonism. No need for PD medications at this time. Continue PT/OT. He has f/up with neurology already scheduled for December and will f/up as scheduled. Please call with any further questions or concerns. . Qualifiers: Parkinsonism type: secondary Parkinsonism Secondary Parkinsonism type: neuroleptic-induced Qualified Code(s): G21.11 - Neuroleptic induced parkinsonism Subjective Subjective Interval history since last seen: No further seizures. Much more alert today. Seems back to baseline. +Constipation. Sodium stable at 125. Exam Narrative Exam Narrative: Physical Exam: Constitutional: Patient of apparent stated age, well nourished, well developed, no acute distress, mild-moderate hypomimia Neuro: MS/Language/Speech: Alert, oriented to self, clear language (fluency and comprehension), mild dysarthria CN: PERRL, EOMI, visual torres full, trigeminal sensation intact, no facial asymmetry, hearing intact to whisper, palate elevates symmetrically, tongue protrudes midline, SCM and trap strength intact Motor: Normal bulk. No significant cogwheel rigidity or bradykinesia today. FM M reduced bilaterally, no pronator drift. 5/5 strength in bilateral upper and lower extremities Sensation: Intact to light touch throughout Coordination: Finger to nose performed without dysmetria Gait: very fast gait with walker Objective Last Vital Signs Temp 99.0 F 12/12/21 15:28 Pulse 80 12/12/21 15:28 Resp 16 12/12/21 15:28 BP 125/77 12/12/21 15:28 Pulse Ox 95 12/12/21 15:28 Laboratory Results - last 24 hr 12/11/21 12/12/21 19:13 05:57 Sodium 125 L 125 L Potassium 3.8 4.0 Chloride 91 L 92 L Carbon Dioxide 27.8 28.9 Anion Gap 6.2 4.1 BUN 15 15 Creatinine 0.7 0.6 L Est GFR (CKD-EPI 2020) 99.12 103.85 Glucose 142 H 107 H Calcium 8.6 8.8 Magnesium 1.7 L
[2021-12-12] MEDS: Melatonin 3 MG TAB PO (19:40)
[2021-12-12] MEDS: levETIRAcetam 500 MG TAB 1000 MG PO (19:40)
[2021-12-12] MEDS: risperiDONE 0.5 MG TAB PO (19:41)
[2021-12-12] MEDS: Desmopressin 0.2 MG TAB PO (21:23)
[2021-12-12 23:01] VITALS: BP 118/69; PULSE 69; RESP 19; TEMP 36.7; O2SAT 93
[2021-12-13 07:02] VITALS: BP 120/78; PULSE 70; RESP 18; TEMP 36.9; O2SAT 91
[2021-12-13 07:30] LABS: Anion Gap 4.4 mmol/L (3-11); BUN 14 mg/dL (7-18); CO2 29.6 mmol/L (21.0-32.0); CREATININE 0.5 mg/dL (0.70-1.30); Calcium 8.8 mg/dL (8.5-10.1); Chloride 93 mmol/L (98-107); Estimated GFR 109.73 (mL/min/1.73m2); Glucose 98 mg/dL (74-106); Potassium 4.1 mmol/L (3.5-5.1); Sodium 127 mmol/L (136-145)
[2021-12-13] MEDS: Tamsulosin 0.4 MG CAPCR PO (08:27)
[2021-12-13] MEDS: Polyethylene Glycol 3350 17 GM PACKET PO (08:27)
[2021-12-13] MEDS: ARIPiprazole 5 MG TAB 10 MG PO (08:28)
[2021-12-13] MEDS: levETIRAcetam 500 MG TAB 1000 MG PO (08:28)
[2021-12-13] MEDS: Esomeprazole 40 MG CAPCR PO (08:28)
--- NOTE | 2021-12-13 13:09 | PDOC.CMDIS ---
- If Service Date Differs Date of service: 12/13/21 Time of Service: 13:09 LACE Index Scoring Tool - Questions: Length of Stay (in days): 3 Acuity (Admit via E.D.?): Yes E.D. Visits: 4 - Answers: Total Score: 10 Risk of Readmission: High Risk Care Management Discharge Reason for Hospitalization: Weakness, hyponatremia Discharge Plan: Blake will return home with his home provider, Lucia, follow up with PCP, neurology and plan of care as prescribed. He will have new home health orders for PT/OT; [facility] notified. Blake will transport via private vehicle with his home provider, Lucia; discharge plan reviewed with Lucia and . Follow up labs at [facility] ordered for Friday, behavioral changes noted by home provider; uncertain if this may be new baseline, med effect or result of increased activity and lack of rest-discussion regarding monitoring and PCP/neurology outreach reviewed by MD. Patient/Family Education Needs: Review discharge instructions, discuss Ask Me Three. Services Needed at Discharge: Home Health Care Services
--- NOTE | 2021-12-13 14:32 | DSE_ITS ---
Date of service: 12/13/21 Time of Service: 14:32 DS: Diagnosis Discharge Diagnosis (1) Acute hyponatremia: Status: Acute Asessment and Plan: Improved. (2) First time seizure: Status: Acute Asessment and Plan: initiated on keppra (3) Parkinsonism: Status: Acute Asessment and Plan: Will need outpatient neurology follow up (4) Constipation: Status: Resolved Asessment and Plan: Has an ostomy with a good ostomy output today (5) Hypomagnesemia: Status: Acute Asessment and Plan: Will need outpatient follow up. (6) GERD (gastroesophageal reflux disease): Status: Chronic Asessment and Plan: on PPI (7) Traumatic brain injury: Asessment and Plan: Will need outpatient neuro follow up Discharge Plan Disposition Patient Disposition: HOME W/HOME HEALTH SERVICE Condition: Stable Discharge Details Reason For Visit: Weakness, Hyponatremia Admit Date/Time: 12/10/21 00:02 Admit Provider: Yonas Arteaga Attending Provider: Yonas Arteaga Primary Care Provider: Shon Larios Hospital Course Hospital Course: Mr Bazzi is a 71 year old male with PMHx of a TBI on desmopressin (?h/o D/I), as well as h/o GERD, colostomy, BPH, who was admitted to [facility] hospitalist service on 12/10/21 with acute symptomatic hyponatremia with a sodium of 119. His symptoms were vomiting. He had been drinking more free water at home to stay hydrated. His SSRI and desmopressin were held, he was given IV normal saline, and his sodium improved unexpectedly rapidly to 131. At this point, he was started on D5W with frequent serial chemistries to counteract too rapid of a correction. On 12/11/21, the patient had a tonic clonic seizure with a post- ictal state following. CT head was negative. At this time, his sodium was 127. He was started on keppra. 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 Clinically, the patient was not in status epilepticus at the time of the EEG. The patient was recommended to be continued on keppra. As far as hyponatremia, the patient's desmopressin was resumed and sodium slowly decreased and is now starting to come back up. It is 127 on discharge. The patient will need to have both his sodium and magnesium checked on 12/17/21 to ensure they have both corrected. Neurology recommends PT and OT evaluation for his Parkinsonism. Our PT recommends Home health services for PT and OT. No medications were initiated for Parkinsonism on this admission, and the patient will have both home health PT and OT ordered in addition to outpatient neurology follow up. The patient is being discharged home today. Care for patient as well as completion of his discharge summary on day of discharge took 45 minutes. Home Meds and New Rx's Prescriptions: New sennosides [Senokot] 8.6 mg Tablet 8.6 mg PO BID PRN PRNQty: 30 0RF docusate sodium 100 mg capsule 100 mg PO DAILY AM Qty: 30 0RF magnesium oxide 400 mg (241.3 mg magnesium) tablet 400 mg PO DAILY Qty: 30 0RF levetiracetam [Keppra] 1,000 mg tablet 1,000 mg PO BID Qty: 60 0RF Continued tamsulosin 0.4 mg capsule 0.4 mg PO DAILY esomeprazole magnesium [Nexium] 40 mg capsule,delayed release(DR/EC) 40 mg PO DAILY risperidone [Risperdal] 0.5 mg tablet 0.5 mg PO QPM ketoconazole 2 % cream 1 applic topical DAILY PRN desmopressin 0.2 mg tablet 0.4 mg PO QPM aripiprazole [Abilify] 10 mg Tablet 10 mg PO DAILY solifenacin [Vesicare] 10 mg Tablet 10 mg PO DAILY polyethylene glycol 3350 17 gram Powder In Packet 17 g PO DAILY Qty: 100 3RF Rx Instructions: take daily and as needed BID melatonin 3 mg tablet 3 mg PO QPM Discontinued fluoxetine 20 mg capsule 20 mg PO DAILY Label Comments: TAKE ONE CAPSULE BY MOUTH EVERY DAY Discharge Instructions Instructions: Levetiracetam (By mouth), Hyponatremia (DC), Hypomagnesemia (DC), Seizures After Traumatic Brain Injury (DC) Additional Instructions: Return to the hospital with any worsening in mental status, if Justus develops a fever, chest pain, or shortness of breath. Follow up with PCP in 1-2 days. Follow up with neurology. Bloodwork 12/17/21 - Results to Dr Larios Care Plan Goals: Home with new home health PT, OT. Stand Alone Forms: Nursing Discharge Form Referrals: Shon Larios [Primary Care Provider] - 12/21/21 10:40 am Meena Martínez MD [ [facility] STAFF PHYSICIAN] - (The nurse will call you with an appointment ) Activity:: Activity as Tolerated Equipment/Supplies:: No Equipment Needed Diet:: As Tolerated Discharge Orders Discharge Orders: Discharge Order (Routine); Ordered 12/13/21 Ordered By: Jyotsna Rodriguez Other Ambulatory Orders: Basic Metabolic Panel (Routine) Timeframe: 20211217 Facility: [facility] - Location: Laboratory Outpatient - [facility] Ordered By: Jyotsna Rodriguez Magnesium (Routine) Timeframe: 20211217 Facility: [facility] - Location: Laboratory Outpatient - [facility] Ordered By: Jyotsna Rodriguez DS: Summary Time Spent with Patient providing and/or coordinating discharge services: Greater than 30 minutes Status at Discharge Functional status at discharge: independent ambulation Overall status at discharge: patient is progressing back to baseline Mental Status: mental status grossly normal Speech and Movement: delayed speech Mood: congruent mood Affect: indifferent Exam Narrative Exam Narrative: General: Pleasant elderly male who is A&Ox2, somewhat slow to respond, but answers appropriately HEENT: EOMI, MMM Heart: RRR, no m/r/g Lungs: CTAB Abdomen: soft, nontender, nondistended; colostomy with output Extremities: trace edema BLEs Psych Mental Status: mental status grossly normal Speech and Movement: delayed speech Mood: congruent mood Affect: indifferent DS: Data Vitals/I&O Vitals and I&O: Vital Signs Temperature 36.9 C 12/13/21 07:02 Temperature Source Tympanic 12/13/21 07:02 Pulse 70 12/13/21 07:02 Pulse Rhythm Regular 12/13/21 09:58 Pulse 76 12/10/21 01:01 Respiratory Rate 18 12/13/21 07:02 Respiratory Effort Non-Labored 12/13/21 09:58 Respiratory Depth Normal 12/13/21 09:58 Respiratory Pattern Normal 12/13/21 09:58 Blood Pressure 120/78 12/13/21 07:02 Blood Pressure Mean 78 12/10/21 01:00 Blood Pressure Position Sitting 12/09/21 21:41 Pulse Oximetry 91 L 12/13/21 07:02 Oxygen Delivery Method Room Air 12/13/21 07:02 Oxygen Flow Rate 0 12/13/21 07:02 Pain Level 0 12/12/21 23:01 Comment 12/12/21 14:32 Intake & Output 12/12/21 12/13/21 12/13/21 23:59 11:59 23:59 Intake Total 1078.333 / 2018.333 906.667 / 1226.667 320 / 1226.667 Output Total 400 / 400 650 / 1150 500 / 1150 Balance 678.333 / 1618.333 256.667 / 76.667 -180 / 76.667 Intake: IV 403.333 / 623.333 906.667 / 906.667 Oral 675 / 1395 320 / 320 Output: Urine 400 / 400 500 / 500 Stool 650 / 650 Other: Urine Color Yellow Straw Urine Appearance Clear Clear Urine Odor Normal Comment Patient incontinent of urine pt stood to use urinal voided 500 but was also incontinent. Stool Occult Blood Negative Voiding Methods Diaper Diaper Diaper Incontinent Incontinent Data Completed and Pending Completed studies during hospitalization [Text1]: CT chest/abdomen/pelvis 12/09/21: No evidence of bowel obstruction.? Left lower quadrant ostomy is unremarkable.? There is a large quantity of stool.? Distended urinary bladder.? MRI brain 12/11/21; No significant intracranial findings on this noninfused MRI scan of the brain. CXR 12/11/21: Left lower lobe infiltrate and small left pleural effusion.? Elevated left hemidiaphragm. CT head w/o contrast 12/11/21: No acute intracranial findings on this noninfused CT scan of the brain. CXR abdomen flat/upright 12/12/21: Findings are suggestive of constipation.? No evidence of bowel obstruction. 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
--- NOTE | 2021-12-13 14:40 | PT.INIE ---
Date of service: 12/13/21 Time of Service: 14:40 PT Notes Visit Reasons: Weakness, Hyponatremia Physical Therapy Inpatient Initial Evaluation Date: 12/13/2021 Referring Doctor:? Carie Zeng? PT Orders: PT CONSULT: Limited ability Precautions: Fall. Standard. Activity as tolerated. Patient Profile/Admitting Diagnosis:? Patient is a 71-year-old male patient with past medical history significant for traumatic brain injury and PArkinson's Disease who presented to the ED on 12/09/2021 due to nausea, vomiting and abdominal pain.? Patient is diagnosed with acute hyponatremia. PMHX: All Active Problems? 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 Acid reflux Anemia Atelectasis BPH (benign prostatic hyperplasia) Dysphagia BRIGID on CPAP Traumatic brain injury Surgical History? S/P decompression of ulnar nerve at elbow S/P left hemicolectomy (~12/25/20) Social History/Home Situation: Lives with 24/7caregivers at caregivers's home.? Independent with all ambulation using no assistive device. 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 After that, patient has been noticeably weaker and appeared not himself. Equipment Owned/DME: [facility] Subjective: Agreeable to PT consult.? Per RUSSELL Myers, patient is not at baseline alertness level and energy level right now. She states that he was able to do Objective: General Observation: Seated on chair.? Colostomy in place. Mental Status: Mildly lethargis but is oriented as to person, place, time, and purpose. Able to pay attention, focus, and respond appropriately, albeit slower than normal. Pain: Denies Vital Signs: WNL as closely monitored by nursing staff ROM: Right Upper Extremity: ? Shoulder Flexion WFL. Shoulder abduction WFL. Elbow flexion WFL. Wrist flexion WFL. Functional opening and closing of hand WFL. Left Upper Extremity:? Shoulder Flexion WFL. Shoulder abduction WFL. Elbow flexion WFL. Wrist flexion WFL. Functional opening and closing of hand WFL. Right Lower Extremity: Hip flexion WFL. Hip abduction WFL. Knee flexion WFL. Ankle dorsiflexion WFL. Ankle plantarflexion WFL. Left Lower Extremity: Hip flexion WFL. Hip abduction WFL. Knee flexion WFL. Ankle dorsiflexion WFL. Ankle plantarflexion WFL. Strength: Right Upper Extremity: Shoulder flexors 4/5. Shoulder abductors 4/5. Elbow flexors 5/5. Elbow extensors 5/5. Automobile Leasing Supervisor strong. Left Upper Extremity: Shoulder flexors 4/5. Shoulder abductors 4/5. Elbow flexors 5/5. Elbow extensors 5/5. Automobile Leasing Supervisor strong. Right Lower Extremity: Hip flexors 4/5. Hip abductors 4/5. Knee flexors 5/5. Knee extensors 4/5. Ankle dorsiflexors 4-/5. Ankle plantarflexors 4/5. Left Lower Extremity: Hip flexors 4/5. Hip abductors 4/5. Knee flexors 5/5. Knee extensors 4/5. Ankle dorsiflexors 4-/5. Ankle plantarflexors 4/5. Bed Mobility/Transfers: Rolling supervision Supine to sit supervision Sit to supine supervision Sit to stand stand by assist Stand to sit stand by assist Bed to reclining chair stand by assist Gait: Instructed patient with level surface ambulation of 900 feet requiring stand by assist.? Gait pattern at baseline.? No pain report.? Without a FWW,? patient is able to ambulate with supervision with no LOB and no shortness of breath. Balance: Static Sitting: Normal Dynamic Sitting: Normal Static Standing: Good Dynamic Standing: Fair Special Tests: Mobility Limitations Standardized Measure [facility] 6 clicks Basic Mobility Inpatient Short Form: Raw Score: 24? CMS Score: 0% deficit? ? 4-stage Balance test: Unable to maintain 4 positions for 10 seconds without losing balance signifying at risk for falls.? Informed Consent/Education:? Patient was instructed in purpose of PT consult and plan of care. Agreeable to proceed with established PT POC to achieve personal goals. Assessment: Patient does not require the use of FWW at this time. May however benefit from PT/OT services for continued ambbulation training on outdoor ground surfaces without AD as caregiver states that patient is not back to baseline mobility level of faster gait speed and much more stable base of support. Will continue to require 24/7 care due to pre-existing medical condition. Patient is assessed as a 64958 moderate complexity based on the following: History: 70-year-old male with past medical history as indicated above Examination: Demonstrable impairment in strength, balance, and mobility level with underlying impairments and functional limitations as exhibited above as well as deficit score of 0% utilizing the [facility] Mobility Inpatient Short Form Presentation: Stable Decision Makin moderate complexity Goals: Goals X1 week 1. Supine-Sit independent 2. Sit-Supine independent 3. Sit-Stand independent 4. Stand-Sit independent 5. Bed-Chair independent 6. Chair-Bed independent 7. Independent gait on level surface with use of no AD for at least 1000 feet without report of pain nor dyspnea 8. Good static and dynamic standing balance/tolerance Plan of Care/Treatment Plan: 1-2x/day, 7 days/week x 1 week. Plan of care has been reviewed with the METER READING CLERK providing the service under Physical Therapy direction. Initiate Physical Therapy intervention for pain management as needed, strengthening, bed mobility, transfers, gait, stairs, balance training, and use of assistive device. DISCHARGE RECOMMENDATIONS: [] Home with no services [] [X] Home with services. Home when medically cleared by hospitalist. Patient will benefit from home health PT services in order to progress mobility level using least restrictive assistive ambulatory device, assess home safety, identify additional equipment needs, and establish a functional maintenance program that will increase ability of patient to remain at home. [] Home with outpatient PT [] [] SNF for continued rehabilitation [] [] Senior Living Care [] [] SNF versus LTC based on ability to participate and progress [] TREATMENT CODE/TIME: 88905 x 29 minutes beginning at 14:40 PM. Thank you for the opportunity to participate in the care of this patient. Donna Strickland PT, DPT, CLT [facility] [place], [place]
--- NOTE | 2021-12-13 14:52 | PDOC.HHF2F ---
Home Health Certification Home Health Certification: 1. Encounter Date and Reason I certify that Justus Bazzi was seen by Jyotsna Rodriguez on 12/13/21 and that I had a [id number] encounter with this patient that meets the physician face to face encounter requirements. 2. Clinical Findings Supporting Skilled Need and Homebound Status I certify that home health services are medically necessary, include either intermittent penitentiary and/or physical/speech therapy, and that this patient is homebound in that absences from the home require considerable and taxing effort and are infrequent or of short duration, or are attributable to the need to receive medical care. [X] (a) Attached documentation from encounter provides clinical findings supporting skilled need and homebound status (including what assistance patient requires to leave the home). The encounter with the patient was in whole, or in part, for the following medical condition, which is the primary reason for home health care: Weakness, Hyponatremia Physical Therapy: eval and treat Occupational Therapy: eval and treat Homebound: unable to leave home without assistance 3. Certification and Authentication I certify that I composed the above information based on my clinical judgement relating to this patient's medical condition and, if applicable, clinical findings communicated to me by the NPP or inpatient physician who performed the Home Health Referral. All further orders will be obtained through ___Dr Larios (Community Based Physician - PCP)
== END 2021-12-13 15:51 | disposition home health service (06) | DRG 641 ==
LOC: ER 12-10 00:42 → MS 12-10 01:10
PROVIDERS: Internal Medicine; Registered Nurse Emergency; Admitting Provider General Practice; Emergency Provider Emergency Medicine; PCP Neuromusculoskeletal Medicine & OMM; Visit Provider General Practice
DX: E87.1 Hypo-osmolality and hyponatremia (principal); G21.11 Neuroleptic induced parkinsonism; R53.1 Weakness; K21.9 Gastro-esophageal reflux disease without esophagitis; R29.2 Abnormal reflex; K22.70 Barrett's esophagus without dysplasia; D64.9 Anemia, unspecified; G47.33 Obstructive sleep apnea (adult) (pediatric); Z87.820 Personal history of traumatic brain injury; Z86.16 Personal history of COVID-19; E83.42 Hypomagnesemia; R56.9 Unspecified convulsions; R09.02 Hypoxemia; T43.595A Adverse effect of other antipsychotics and neuroleptics, initial encounter; K59.00 Constipation, unspecified; T38.895A Adverse effect of other hormones and synthetic substitutes, initial encounter
CPT/HCPCS: 36415; 80048; 80053; 83690; 87635; 95819; 96361; 96365; 96375; 97162; 99223; 99232; 99285; 70450; 70551; 71045; 74019; 74177; 81003; 83735; 84295; 85025; 99222; 99239; 99291; J0131; J1953; J2405; J2597; J3475; J3490

== ENCOUNTER 2021-12-17 00:23 | Observation (INO) | payer MEDICARE, MEDICAID, SELFPAY ==
[2021-12-17] VITALS (47 sets, daily range): BP systolic 109–140; BP diastolic 56–77; PULSE 0–84; RESP 8–18; TEMP 36.3–37.2; O2SAT 93–100
--- NOTE | 2021-12-17 00:37 | W.ED.GENAD ---
Discharge Plan Disposition Patient Disposition: [facility] INPATIENT Condition: Stable Discharge Details Chief Complaint: GenMedical Clinical Impression: Parkinsonism, Hypomagnesemia, Weakness Primary Care Provider: Shon Larios ED Provider: Nate Chavez Home Meds and New Rx's Prescriptions: No Action tamsulosin 0.4 mg capsule 0.4 mg PO DAILY esomeprazole magnesium [Nexium] 40 mg capsule,delayed release(DR/EC) 40 mg PO DAILY risperidone [Risperdal] 0.5 mg tablet 0.5 mg PO QPM ketoconazole 2 % cream 1 applic topical DAILY PRN desmopressin 0.2 mg tablet 0.4 mg PO QPM aripiprazole [Abilify] 10 mg Tablet 10 mg PO DAILY solifenacin [Vesicare] 10 mg Tablet 10 mg PO DAILY polyethylene glycol 3350 17 gram Powder In Packet 17 g PO DAILY Qty: 100 3RF Rx Instructions: take daily and as needed BID melatonin 3 mg tablet 3 mg PO QPM sennosides [Senokot] 8.6 mg Tablet 8.6 mg PO BID PRN PRNQty: 30 0RF docusate sodium 100 mg capsule 100 mg PO DAILY AM Qty: 30 0RF magnesium oxide 400 mg (241.3 mg magnesium) tablet 400 mg PO DAILY Qty: 30 0RF levetiracetam [Keppra] 1,000 mg tablet 1,000 mg PO BID Qty: 60 0RF Medical Decision Making 71-year-old male discharged from the hospital on December 13 following an admission for hyponatremia, hypomagnesemia, and new onset seizure for which she was placed on Keppra. EMS was called to the caregivers home tonight due to persistent weakness that the patient is demonstrated over days time. He has not fallen or vomited. He has stated I need help, and has complained of some nonspecific low back pain. On arrival the patient is afebrile and interactive. His mucous membranes are dry. Includes procedures/work for: Provider urinary tract infection, with severe levels/infective recently started for or exacerbation for disease. Patient had IV access established, fluids initiated with normal saline, he is referred. The remainder of your electrolytes sodium 136, potassium 4.5 bicarb 33, BUN 15, creatinine 0.4. Laboratory testing. Given the complaint of back pain and screening x-ray as well. Laboratories. Fluids 4.7, hematocrit 38, platelets 226. Sodium 136, potassium 4.5, chloride 96 bicarb 33 BUN 15, creatinine 0.4, magnesium 1.4. Urinalysis without evidence of infection X-ray lumbar spine unremarkable. Patient's caregiver relates that shuffling gait, poor energy and the mild mental status changes since beginning Keppra. He may also have akinesis secondary to Parkinson's exacerbation. Given the weakness, shuffling gait, hypomagnesemia and mild mental status changes, the case is discussed with Dr. Arteaga for admission. HPI General Mode of arrival: EMS. Date/Time Provider Initiated Documentation: 12/17/21 00:24. Limitations to Documentation: no limitations. Information obtained by: patient, EMS and old records reviewed. History of Present Illness 71 year old M presents to the emergency department with the chief complaint of Weakness and not acting himself, described as moderate, Patient started experiencing this day(s) and it has been intermittent. No relieving factors improve symptom(s), No exacerbating factors reported . Patient notes loss of appetite; denies fever/chills, nausea/vomiting and seizure. Patient did receive the following treatments prior to arrival, none Related Data Home Medications Medication Instructions Recorded Confirmed esomeprazole magnesium 40 mg 40 mg PO DAILY 12/25/20 12/09/21 capsule,delayed release (Nexium) risperidone 0.5 mg tablet 0.5 mg PO QPM 12/25/20 12/09/21 (Risperdal) tamsulosin 0.4 mg capsule 0.4 mg PO DAILY 12/25/20 12/09/21 desmopressin 0.2 mg tablet 0.4 mg PO QPM 01/01/21 12/09/21 polyethylene glycol 3350 17 gram 17 g PO DAILY #100 ea 06/22/21 12/09/21 oral powder packet ketoconazole 2 % topical cream 1 applic topical DAILY PRN 10/09/21 12/09/21 melatonin 3 mg tablet 3 mg PO QPM 10/09/21 12/09/21 aripiprazole 10 mg tablet (Abilify) 10 mg PO DAILY 11/26/21 12/09/21 solifenacin 10 mg tablet (Vesicare) 10 mg PO DAILY 11/26/21 12/09/21 docusate sodium 100 mg capsule 100 mg PO DAILY AM #30 caps 12/13/21 levetiracetam 1,000 mg tablet 1,000 mg PO BID #60 tabs 12/13/21 (Keppra) magnesium oxide 400 mg (241.3 mg 400 mg PO DAILY #30 tabs 12/13/21 magnesium) tablet sennosides 8.6 mg tablet (Senokot) 8.6 mg PO BID PRN PRN #30 tabs 12/13/21 Previous Rx's Medication Instructions Recorded polyethylene glycol 3350 17 gram 17 g PO DAILY #100 ea 06/22/21 oral powder packet docusate sodium 100 mg capsule 100 mg PO DAILY AM #30 caps 12/13/21 levetiracetam 1,000 mg tablet 1,000 mg PO BID #60 tabs 12/13/21 (Keppra) magnesium oxide 400 mg (241.3 mg 400 mg PO DAILY #30 tabs 12/13/21 magnesium) tablet sennosides 8.6 mg tablet (Senokot) 8.6 mg PO BID PRN PRN #30 tabs 12/13/21 Allergies Allergy/AdvReac Type Severity Reaction Status Date / Time No Known Allergies Allergy Verified 12/09/21 21:44 General Stated Complaint: GenMedical IVET: 3 Review of Systems Narrative: Has complained of some lower back pain. Recently started on Keppra. No fever or vomiting. Generalized weakness and a decreased activity level. 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) Medical History Acid reflux Anemia Atelectasis BPH (benign prostatic hyperplasia) Dysphagia BRIGID on CPAP Traumatic brain injury Surgical History S/P decompression of ulnar nerve at elbow S/P left hemicolectomy (~12/25/20) Family History Mother Heart disease Social History Smoking/Tobacco Use Status: Never Smoking risk assessment performed?: Yes Alcohol Intake: never Substance use type: does not use Household members: caregiver Number of Children: 0 current occupation: Disabled Other: Lives with Caregiver Lucia Do you feel safe at home: Yes Do you feel safe in your relationship?: Yes Exam Narrative Exam Narrative: GEN: awake, alert. Pleasant, well groomed, interactive. HEAD: Normocephalic, atraumatic ENT: Mucous membranes dry, oropharynx unremarkable, external ear exam unremarkable. Masked facies. EYES: PERRL, EOMI NECK: Full ROM, no VLAD, no menigismus CHEST/RESP: Nontender, clear to auscultation bilateral, no wheeze/rhonchi/rales CARDIOVASCULAR: RRR, no murmur, rub shagufta. 2+ Rad pulse bilateral ABDOMEN: Soft, nontender, no mass. +Bowel sounds EXT: Full ROM, no edema, no rash Neuro: Grossly normal neurologic exam, conversant, interactive. Slight cogwheeling present Bilat upper extr. Psych: Speech fluent, affect flat Course Vital Signs Vital signs: Vital Signs Temperature 36.6 C 12/17/21 00:25 Pulse 70 12/17/21 00:25 Respiratory Rate 11 L 12/17/21 00:25 Blood Pressure 140/75 12/17/21 00:25 Pulse Oximetry 96 12/17/21 00:25 Temperature 36.6 C 12/17/21 00:25 Temperature Source Temporal Artery Scan 12/17/21 00:25 Pulse 70 12/17/21 00:25 Respiratory Rate 11 L 12/17/21 00:25 Respiratory Effort 12/17/21 00:25 Blood Pressure 140/75 12/17/21 00:25 Blood Pressure Position Supine 12/17/21 00:25 Pulse Oximetry 96 12/17/21 00:25 Oxygen Delivery Method Room Air 12/17/21 00:25 Oxygen Flow Rate 0 12/17/21 00:25
[2021-12-17 00:47] LABS: Abs Immature Grans 0.01 10^3/uL (0.0-0.06); Absolute Basophil Count 0.03 10^3/uL (0.0-0.2); Absolute Eosinophil Count 0.19 10^3/uL (0.0-0.7); Absolute Lymphocyte Count 1.14 10^3/uL (1.2-3.4); Absolute Monocyte Count 0.34 10^3/uL (0.1-0.8); Absolute Neutrophil Count 3.08 10^3/uL (1.2-6.7); Basophils % 0.6; HGB 12.1 g/dL (13.5-17.5); Immature Grans % 0.2; Lymphocytes % 23.8; MCH 29.9 pg (27.0-33.0); MCHC 31.8 % (32.0-36.0); MCV 94 fL (80-95); MPV 9.4 fL (8.0-11.0); Monocytes % 7.1; Neutrophils % 64.3; Platelet Count 226 10^3/uL (130-400); RBC 4.05 10^6/uL (4.36-5.78); RDW 12.5 % (11.8-14.1); RDW-SD 43.4 fL; WBC 4.79 10^3/uL (4.4-10.8)
[2021-12-17] MEDS: Normal Saline 1,000 ML 150 ML IV (00:52)
[2021-12-17 01:23] LABS: ALT 30 U/L (16-63); AST 38 U/L (15-37); Albumin 3.5 g/dL (3.4-5.0); Alkaline Phosphatase 78 U/L (46-116); BUN 15 mg/dL (7-18); Bilirubin, Total 0.6 mg/dL (0.2-1.0); CREATININE 0.4 mg/dL (0.70-1.30); Calcium 9.5 mg/dL (8.5-10.1); Chloride 96 mmol/L (98-107); Estimated GFR 117.38 (mL/min/1.73m2); Glucose 106 mg/dL (74-106); Magnesium 1.4 mg/dL (1.8-2.4); Potassium 4.5 mmol/L (3.5-5.1); Sodium 136 mmol/L (136-145)
--- NOTE | 2021-12-17 01:30 | DI.RAD_ITS ---
Exam(s) XR LUMBAR SPINE AP, LAT EXAM: XR LUMBAR SPINE AP, LAT CLINICAL HISTORY: lower back pain. TECHNIQUE: 2D digital imaging was performed. Five views. COMPARISON: No exams were available for comparison FINDINGS: Exam is extremely limited by overlying clothing, sheets is well as monitoring leads. No compression fracture is visible. There are small endplate osteophytes. There is moderate narrowing of the L 4 5 disc space. Facet degenerative changes are present. No spondylolysis or spondylolisthesis is seen. IMPRESSION: Degenerative changes. No gross evidence of an acute abnormality. DATA REPOSITORY: RADIATION DOSE DELIVERED:
[2021-12-17] MEDS: MAGNESIUM SULFATE 2 GM/50 ML BAG IVPB ×2 (01:35→08:50)
--- NOTE | 2021-12-17 02:15 | DI.VRAD_ITS ---
PROCEDURE INFORMATION: Exam: XR Lumbosacral Spine Exam date and time: 12/17/2021 1:57 AM Age: 71 years old Clinical indication: Low back pain TECHNIQUE: Imaging protocol: Radiologic exam of the lumbosacral spine. Views: 2 or 3 views. COMPARISON: CT ABDOMEN PELVIS W 12/09/2021 11:19 PM FINDINGS: Bones/joints: Minimal lower lumbar facet arthropathy. No acute fracture. Normal alignment. Soft tissues: Unremarkable. IMPRESSION: No acute findings. Dictated and Authenticated by: Juan Carlos Damon MD. Ordering:MICHELLE Sullivan MD
[2021-12-17 02:29] LABS: Bilirubin Negative (Negative); Blood Negative (Negative); Clarity Clear (Clear); Glucose Negative (Negative); Ketones Negative (Negative); Leukocyte Esterase Negative (Negative); Nitrite Negative (Negative); Specific Gravity 1.025 (1.005-1.025)
[2021-12-17 03:26] LABS: Source Nasal/Nares
--- NOTE | 2021-12-17 03:41 | HPE_ITS ---
Date of service: 12/17/21 Time of Service: 03:42 Assessment and Plan Assessment and plan (1) Weakness: Status: Acute Assessment and plan: By history it sounds like the Keppra may be the prime aggravating factor here (and possibly also the stopping of the SSRI?), but all in the setting of underlying Parkinsons. But otherwise no specific findings to target. Would advise observation, await Keppra levels, but consider dose decrease empirically in meantime, or reassess need for ongoing antiseizure medication. Would also consider restarting SSRI but not at this time until other factors have been sort ed out more clearly (and it would be unusual to see withdrawal from Prozac this soon given lenghthy half-life). History of Present Illness History of Present Illness Chief Complaint: weakness Narrative: 71 male with h/o Parkinson's, TBI -- here with hyponatremia, felt to be due to combination of medications (desmopressin, Prozac) and recent excessive water intake. Patient had fluctuating sodium levels in course of correction of hyponatremia and then on second hospital day had a seizure. This was felt to be due to be multifactorial in cause but representing a true underlying seizure disorder and he was started on Keppra. He was discharged on usual meds save for Prozac. Since discharge caregiver has noted generalized lack of energy and weakness. The immediate precipitant for tonight's visit is that patient stated he just didn't feel well. In ER w/u was generally unremarkable, save Mg 1.4. Otherwise CBC, chemistries, U/A unrevealing. Patient has complaint of chronic back pain and LS spine shows no acute disease, mild DJD. I was asked to evaluate for admission. Above story confirmed directly with caregiver. Patient himself only states that he feels OK. 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) Medical History Acid reflux Anemia Atelectasis BPH (benign prostatic hyperplasia) Dysphagia BRIGID on CPAP Traumatic brain injury Surgical History S/P decompression of ulnar nerve at elbow S/P left hemicolectomy (~12/25/20) Family History Mother Heart disease Social History Smoking/Tobacco Use Status: Never Smoking risk assessment performed?: Yes Alcohol Intake: never Substance use type: does not use Household members: caregiver Number of Children: 0 current occupation: Disabled Other: Lives with Caregiver Lucia Do you feel safe at home: Yes Do you feel safe in your relationship?: Yes Meds Allergies and Home Medications Allergies Allergy/AdvReac Type Severity Reaction Status Date / Time No Known Allergies Allergy Verified 12/17/21 03:35 Home Medications Medication Instructions Recorded Confirmed Type esomeprazole magnesium 40 mg 40 mg PO DAILY 12/25/20 12/17/21 History capsule,delayed release (Nexium) risperidone 0.5 mg tablet 0.5 mg PO QPM 12/25/20 12/17/21 History (Risperdal) tamsulosin 0.4 mg capsule 0.4 mg PO DAILY 12/25/20 12/17/21 History desmopressin 0.2 mg tablet 0.4 mg PO QPM 01/01/21 12/17/21 History polyethylene glycol 3350 17 gram 17 g PO DAILY #100 ea 06/22/21 12/17/21 Rx oral powder packet ketoconazole 2 % topical cream 1 applic topical DAILY PRN 10/09/21 12/17/21 History melatonin 3 mg tablet 3 mg PO QPM 10/09/21 12/17/21 History aripiprazole 10 mg tablet (Abilify) 10 mg PO DAILY 11/26/21 12/17/21 History solifenacin 10 mg tablet (Vesicare) 10 mg PO DAILY 11/26/21 12/17/21 History docusate sodium 100 mg capsule 100 mg PO DAILY AM #30 caps 12/13/21 12/17/21 Rx levetiracetam 1,000 mg tablet 1,000 mg PO BID #60 tabs 12/13/21 12/17/21 Rx (Keppra) magnesium oxide 400 mg (241.3 mg 400 mg PO DAILY #30 tabs 12/13/21 12/17/21 Rx magnesium) tablet sennosides 8.6 mg tablet (Senokot) 8.6 mg PO BID PRN PRN #30 tabs 12/13/21 12/17/21 Rx Exam Narrative Exam Narrative: 121/784, 68, 36.6, 11, 98% RA. HEENT atraumatic, dry oral mucosa; neck supple; lungs scattered rhonchi; heart RRR; abdomen soft and NT, colostomy patenet; extremities trace pedal edema; neuro Ox2, simple but appropriate answers to questions and follows commands, moves all 4s, Parkinsonian facies Results Labs Result diagrams: 12/17/21 00:44 12/17/21 00:44 Labs: Laboratory Results - last 24 hr 12/17/21 12/17/21 12/17/21 00:44 00:44 02:22 WBC 4.79 RBC 4.05 L Hgb 12.1 L Hct 38.0 L MCV 94 MCH 29.9 MCHC 31.8 L RDW 12.5 Plt Count 226 MPV 9.4 Immature Gran % 0.2 Neutrophils % 64.3 Lymphocytes % 23.8 Monocytes % 7.1 Eosinophils % 4.0 Basophils % 0.6 Nucleated RBC % 0.0 Absolute Neutrophils 3.08 Absolute Lymphocytes 1.14 L Absolute Monocytes 0.34 Absolute Eosinophils 0.19 Absolute Basophils 0.03 Sodium 136 Potassium 4.5 Chloride 96 L Carbon Dioxide 33.0 H Anion Gap 7.0 BUN 15 Creatinine 0.4 L Est GFR (CKD-EPI 2020) 117.38 Glucose 106 Calcium 9.5 Magnesium 1.4 L Total Bilirubin 0.6 AST 38 H ALT 30 Alkaline Phosphatase 78 Total Protein 7.0 Albumin 3.5 Urine Color Yellow Urine Clarity Clear Urine pH 7.0 Ur Specific [place] 1.025 Urine Protein Negative Urine Ketones Negative Urine Blood Negative Urine Nitrite Negative Urine Bilirubin Negative Urine Urobilinogen 1.0 H Ur Leukocyte Esterase Negative Urine Glucose Negative COVID-19 Source 12/17/21 03:19 WBC RBC Hgb Hct MCV MCH MCHC RDW Plt Count MPV Immature Gran % Neutrophils % Lymphocytes % Monocytes % Eosinophils % Basophils % Nucleated RBC % Absolute Neutrophils Absolute Lymphocytes Absolute Monocytes Absolute Eosinophils Absolute Basophils Sodium Potassium Chloride Carbon Dioxide Anion Gap BUN Creatinine Est GFR (CKD-EPI 2020) Glucose Calcium Magnesium Total Bilirubin AST ALT Alkaline Phosphatase Total Protein Albumin Urine Color Urine Clarity Urine pH Ur Specific [place] Urine Protein Urine Ketones Urine Blood Urine Nitrite Urine Bilirubin Urine Urobilinogen Ur Leukocyte Esterase Urine Glucose COVID-19 Source Nasal/Nares Last Vital Signs Temp 36.6 C 12/17/21 00:25 Pulse 59 L 12/17/21 03:01 Resp 13 12/17/21 03:01 BP 109/61 12/17/21 03:01 Pulse Ox 98 12/17/21 03:01
[2021-12-17 04:04] LABS: COVID-19 PCR Negative (Negative)
--- NOTE | 2021-12-17 08:37 | INDS_ITS ---
Date of service: 12/17/21 Time of Service: 08:38 PT Notes Visit Reasons: weakness Physical Therapy Inpatient Initial Evaluation Date: 12/13/2021 Dates of service: 12/13/2021 This is a clinical summary of care provided for the duration of dates listed above. No charge was made in the completion of this documentation. Referring Doctor:? Carie Zeng,? PT Orders: PT CONSULT: Limited ability Precautions: Fall. Standard. Activity as tolerated. Patient Profile/Admitting Diagnosis:? Patient is a 71-year-old male patient with past medical history significant for traumatic brain injury and PArkinson's Disease who presented to the ED on 11/18 due to nausea, vomiting and abdominal pain.? Patient is diagnosed with acute hyponatremia. PMHX: All Active Problems? 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 Acid reflux Anemia Atelectasis BPH (benign prostatic hyperplasia) Dysphagia BRIGID on CPAP Traumatic brain injury Surgical History? S/P decompression of ulnar nerve at elbow S/P left hemicolectomy (~12/25/20) Social History/Home Situation: Lives with 24/7caregivers at caregivers's home.? Independent with all ambulation using no assistive device.? 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 per RUSSELL Myers,? patient last worked there on November 23, 2021.? After that, patient has been noticeably weaker and appeared not himself.? Equipment Owned/DME: [facility] Subjective: Agreeable to PT consult.? Per RUSSELL Myers,? patient is not at baseline alertness level and energy level right now.? She states that he was able to do Objective: General Observation: Seated on chair.? Colostomy in place. Mental Status: Mildly lethargis but? is oriented as to person, place, time, and purpose. Able to pay attention, focus, and respond appropriately, albeit slower than normal. Pain: Denies Vital Signs: WNL as closely monitored by nursing staff ROM: Right Upper Extremity: ? Shoulder Flexion WFL. Shoulder abduction WFL. Elbow flexion WFL. Wrist flexion WFL. Functional opening and closing of hand WFL. Left Upper Extremity:? Shoulder Flexion WFL. Shoulder abduction WFL. Elbow flexion WFL. Wrist flexion WFL. Functional opening and closing of hand WFL. Right Lower Extremity: Hip flexion WFL. Hip abduction WFL. Knee flexion WFL. Ankle dorsiflexion WFL. Ankle plantarflexion WFL. Left Lower Extremity: Hip flexion WFL. Hip abduction WFL. Knee flexion WFL. Ankle dorsiflexion WFL. Ankle plantarflexion WFL. Strength: Right Upper Extremity: Shoulder flexors 4/5. Shoulder abductors 4/5. Elbow flexors 5/5. Elbow extensors 5/5. Injection Molding Machine Offbearer strong. Left Upper Extremity: Shoulder flexors 4/5. Shoulder abductors 4/5. Elbow flexors 5/5. Elbow extensors 5/5. Injection Molding Machine Offbearer strong. Right Lower Extremity: Hip flexors 4/5. Hip abductors 4/5. Knee flexors 5/5. Knee extensors 4/5. Ankle dorsiflexors 4-/5. Ankle plantarflexors 4/5. Left Lower Extremity: Hip flexors 4/5. Hip abductors 4/5. Knee flexors 5/5. Knee extensors 4/5. Ankle dorsiflexors 4-/5. Ankle plantarflexors 4/5. Bed Mobility/Transfers: Rolling supervision Supine to sit supervision Sit to supine supervision Sit to stand stand by assist Stand to sit stand by assist Bed to reclining chair stand by assist Gait: Instructed patient with level surface ambulation of 900 feet requiring stand by assist.? Gait pattern at baseline.? No pain report.? Without a FWW,? patient is able to ambulate with supervision with no LOB and no shortness of breath. Balance: Static Sitting: Normal Dynamic Sitting: Normal Static Standing: Good Dynamic Standing: Fair Assessment: Patient does not require the use of FWW at this time.? May however benefit from PT/OT services for continued ambbulation training on outdoor ground surfaces without AD as caregiver states that patient is not back to baseline mobility level of faster gait speed and much more stable base of support.? Will continue to require 24/7 care due to pre-existing medical condition. Goals: Goals X1 week 1. Supine-Sit independent NOT MET 2. Sit-Supine independent NOT MET 3. Sit-Stand independent NOT MET 4. Stand-Sit independent NOT MET 5. Bed-Chair independent NOT MET 6. Chair-Bed independent NOT MET 7. Independent gait on level surface with use of no AD for at least 1000 feet without report of pain nor dyspnea NOT MET 8. Good static and dynamic standing balance/tolerance NOT MET DISCHARGE RECOMMENDATIONS: [] ? Home with no services [] [X]? Home with services.? Home when medically cleared by hospitalist.? Patient will benefit from home health PT services in order to progress mobility level using least restrictive assistive ambulatory device, assess home safety, identify additional equipment needs, and establish a functional maintenance program that will increase ability of patient to remain at home. [] ? Home with outpatient PT [] [] ? SNF for continued rehabilitation [] [] ? Student Support Counselor Care [] [] ? SNF versus LTC based on ability to participate and progress [] TREATMENT CODE/TIME: ID Thank you for the opportunity to participate in the care of this patient. Donna Strickland PT, DPT, CLT [facility] [place], [place]
[2021-12-17] MEDS: Polyethylene Glycol 3350 17 GM PACKET PO (08:51)
[2021-12-17] MEDS: Magnesium Oxide 400 MG TAB PO (08:52)
--- NOTE | 2021-12-17 08:52 | PDOC.CMIN ---
- If Service Date Differs Date of service: 12/17/21 Time of Service: 08:52 Care Management Initial Assess REASON FOR HOSPITALIZATION:: weakness PAST MEDICAL HISTORY/PAST SURGICAL HISTORY:: All Active Problems . Weakness (Acute). First time seizure (Acute). Hypomagnesemia (Acute). Seizure (Acute). General weakness (Acute). COVID (Acute). Acute hyponatremia (Acute). GERD (gastroesophageal reflux disease) (Chronic). Hyperreflexia (Acute). Parkinsonism (Acute). Yeast dermatitis (Acute). 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 Medical History . Acid reflux. Anemia. Atelectasis. BPH (benign prostatic hyperplasia). Dysphagia. BRIGID on CPAP. Traumatic brain injury. Surgical History . S/P decompression of ulnar nerve at elbow. S/P left hemicolectomy (~12/25/20 PREVIOUS FUNCTIONAL STATUS/SOCIAL/FAMILY SUPPORTS:: Justus Rm) lives in [place], [place] with his home provider Lucia Hammond. His guardian is Sushma Kirk. He has a history of a TBI and requires assistance with his ADL's. Blake ambulates independently and doesn't require any assistive devices. Additionally, he has a social work case manager through [facility] [employer] [facility] and Lucia anticipates that they will provide additional support services in the home if needed. CURRENT FUNCTIONAL STATUS:: Blake was asleep when CM came to see him. He had been out of bed in a chair and ambulated for short distances with minimal assist of 2. He is scheduled to have an EEG this afternoon, so CM was asked not to wake him up. LAUREL met with his home provider Lucia who requested that a Psychiatry consult be ordered. LAUREL communicated the request to the provider, but as [facility] does not currentrly havre a psychiatrist on staff, the consult may need to be completed after discharge.This information was given to Lucia. ADVANCE DIRECTIVES:: none on file Has patient been provided with info about the portal/API?: Yes Did the patient sign up for the portal?: No CODE STATUS:: Full Code INSURANCE COVERAGE / FINANCIAL ISSUES:: Medicare. Medicaid CURRENT HOME/COMMUNITY SERVICES/EQUIPMENT:: Blake PRIMARY CARE PHYSICIAN:: Sohn Larios POTENTIAL DISCHARGE NEEDS:: follow up with PCP and plan of care PATIENT/FAMILY EDUCATION NEEDS:: Review of discharge instructions, limitations, follow up plan, activity, Ask Me Three TRANSPORTATION:: via private vehicle with caregiver PLAN:: Blake will likely be discharged home with a resumption of his services through [facility]. He will follow up with his community providers and plan of care and transport with his caregiver. CM will support Blake and assess for discharge concerns.
[2021-12-17] MEDS: Tamsulosin 0.4 MG CAPCR PO (08:54)
[2021-12-17] MEDS: levETIRAcetam 500 MG TAB 1000 MG PO ×2 (08:55→20:01)
[2021-12-17] MEDS: Esomeprazole 40 MG CAPCR PO (08:56)
[2021-12-17] MEDS: ARIPiprazole 5 MG TAB 10 MG PO (08:56)
--- NOTE | 2021-12-17 09:03 | NCONE_ITS ---
Date of service: 12/17/21 Time of Service: 09:03 Assessment and Plan Assessment and plan (1) Weakness: Status: Acute (2) Altered mental status: Status: Acute (3) Parkinsonism: Status: Acute Qualifiers: Parkinsonism type: secondary Parkinsonism Secondary Parkinsonism type: neuroleptic-induced Qualified Code(s): G21.11 - Neuroleptic induced parkinsonism (4) Epilepsy: Status: Acute Assessment and plan: Blake is readmitted for ongoing weakness, behavior/personality changes, and at times confusion that has been ongoing for ~ 1month s/p COVID infection, complicated by baseline cognitive impairment s/p TBI and neuroleptic-induced Parkinsonsism. Currently laboratory unremarkable except for some dehydration and slightly elevated LFTs. He appears baseline cognitively this am to me. I recommend getting updated EEG. Can consider switching LEV to another agent in case it is causing ADRs, but not clear that it is as symptoms have been occurring prior to LEV introduction..... As far as the weakness, can consider the addition of Sinemet, but for now will monitor how he does with hydration, PT, etc. Please repeat B12 level - last was 450 in April 2020. Finally, consider addition of worsening mood disorder contributing to s ymptoms.... History of Present Illness History of Present Illness Chief Complaint: weakness Narrative: Handedness: right. Guardian: Sushma Norton CM: Fallon Marks Home Care Provider: Lucia (?2011 - present) Blake? is a 70 year-old man with childhood TBI with cognitive impairment under guardianship, mood disorder, Barretts/GERD, chronic constipation s/p bowel obstruction and colostomy Dec 2020, and BRIGID on CPAP. I recently met him in September for his neuroleptic induced Parkinsonsism.? I was able to speak with Lucia by phone today. Blake was recently admitted 12/09/21-12/13/21 for hyponatremia and new onset seizure - started on LEV 1000mg BID. When I last saw him on 12/12/21, he appeared at baseline, was nearly running the hallways. However, the next day on day of discharge he was noted to be more lethargic with periods of improved energy such that he was taken home, per Lucia. Since being home, has had periods of lethargy, poor appetite, restlessness, confusion (claiming he has COVID, etc). He has complained of back pain at times. Last night, Lucia heard him call out. Found him rigid and crying for help, saying he didn't want to . She tried to move him and he would cry out that he was bleeding though he wasn't. She and guardian wonder if he needs a psych eval. He has had decline/significant changes since 11/23/21 s/p COVID infection. This past weekend was only different in that he wasn't as mobile as he has been. More confusion? Blake was able to remember me. He was making jokes about how we all missed him. He says he isn't feeling well, but can't tell me what is wrong. He felt my pushing on his belly felt good. He denied any pain. 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) Medical History Acid reflux Anemia Atelectasis BPH (benign prostatic hyperplasia) Dysphagia BRIGID on CPAP Traumatic brain injury Surgical History S/P decompression of ulnar nerve at elbow S/P left hemicolectomy (~12/25/20) Family History Mother Heart disease Social History Smoking/Tobacco Use Status: Never Smoking risk assessment performed?: Yes Alcohol Intake: never Substance use type: does not use Household members: caregiver Number of Children: 0 current occupation: Disabled Other: Lives with Caregiver Lucia Do you feel safe at home: Yes Do you feel safe in your relationship?: Yes Visit Medication and Allergies Active Medications Generic Name Dose Route Start Last Admin Trade Name Freq PRN Reason Stop Dose Admin Acetaminophen 650 mg 12/17/21 04:04 Acetaminophen 325 Mg Tab PO Q4H PRN PRN Aripiprazole 10 mg 12/17/21 08:30 12/17/21 08:56 Aripiprazole 5 Mg Tab PO 10 mg DAILY RADHA Administration Desmopressin Acetate 0.4 mg 12/17/21 20:00 Desmopressin 0.2 Mg Tab PO QPM RADHA Dimethicone/Zinc Oxide 0 gm 12/17/21 04:01 Momo Protect Cream 142 Gm Tube TP PRN PRN Docusate Sodium 100 mg 12/17/21 05:35 12/17/21 06:35 Docusate Sodium 100 Mg Cap PO Not Given DAILY AM RADHA Esomeprazole Magnesium 40 mg 12/17/21 07:30 12/17/21 08:56 Esomeprazole 40 Mg Capcr PO 40 mg 0730 RADHA Administration Sodium Chloride 500 mls @ 0 mls/hr 12/17/21 00:26 Saline 500ml Bag IV PRN PRN As Directed Magnesium Sulfate 2 gm in 50 mls @ 25 mls/hr 12/17/21 07:54 12/17/21 08:50 IVPB 12/17/21 09:53 25 mls/hr NOW ONE Administration IV Miscellaneous Supplies 1 each 12/17/21 00:30 Iv Access IV DIRECTED RADHA Ketoconazole 0 gm 12/17/21 04:02 Ketoconazole 2% Cream 15 Gm Tube TP DAILY PRN PRN Levetiracetam 1,000 mg 12/17/21 08:30 12/17/21 08:55 Levetiracetam 500 Mg Tab PO 1,000 mg BID RADHA Administration Magnesium Oxide 400 mg 12/17/21 08:30 12/17/21 08:52 Magnesium Oxide 400 Mg Tab PO 400 mg DAILY RADHA Administration Melatonin 3 mg 12/17/21 20:00 Melatonin 3 Mg Tab PO QPM RADHA Non-Formulary Medication 10 mg 12/17/21 08:30 Solifenacin [Vesicare] PO DAILY RADHA Polyethylene Glycol 17 gm 12/17/21 08:30 12/17/21 08:51 Polyethylene Glycol 3350 17 Gm Packet PO 17 gm DAILY RADHA Administration Polyethylene Glycol 17 gm 12/17/21 04:40 Polyethylene Glycol 3350 17 Gm Packet PO BID PRN PRN Risperidone 0.5 mg 12/17/21 20:00 Risperidone 0.5 Mg Tab PO QPM RADHA Sennosides 1 tab 12/17/21 04:02 Senna Tab PO BID PRN PRN Sodium Chloride 0 ml 12/17/21 00:26 Normal Saline Flush 10 Ml Syr IVP PRN PRN Tamsulosin HCl 0.4 mg 12/17/21 08:30 12/17/21 08:54 Tamsulosin 0.4 Mg Capcr PO 0.4 mg DAILY RADHA Administration Allergies No Known Allergies Allergy (Verified 12/17/21 03:35) Exam Narrative Exam Narrative: Physical Exam: Constitutional: Patient of apparent stated age, well nourished, well developed, no acute distress,?mild-moderate hypomimia Neck: Supple, no meningismus CV: RRR Resp: CTAB Abd: Soft, nontender, nondistended, +BS Neuro: MS/Language/Speech: Alert, oriented to self, clear language (fluency and comprehension),?mild dysarthria - complicated by dry mouth CN: PERRL, EOMI, visual torres full, trigeminal sensation intact, no facial asymmetry, hearing intact, palate elevates symmetrically, tongue protrudes mi dline, SCM and trap strength intact Motor: Normal bulk.??Subtle bradykinesia in bilateral UE and mild in bilateral LE.???bilateral cogwheel rigidity? FMM reduced bilaterally,?no pronator drift.? 4/5 strength in bilateral upper and lower extremities. LUE resting pill-rolling tremor. Sensation: Intact to light touch throughout Coordination: Finger to nose performed without dysmetria Gait:?not able to test safely at present Results Last Vital Signs Temp 98.4 F 12/17/21 08:30 Pulse 70 12/17/21 08:30 Resp 18 12/17/21 08:30 BP 130/75 12/17/21 08:30 Pulse Ox 94 12/17/21 08:30 Labs Result diagrams: 12/17/21 00:44 12/17/21 00:44 Labs: Laboratory Results - last 24 hr 10/12/17/21 12/17/21 00:44 00:44 02:22 WBC 4.79 RBC 4.05 L Hgb 12.1 L Hct 38.0 L MCV 94 MCH 29.9 MCHC 31.8 L RDW 12.5 Plt Count 226 MPV 9.4 Immature Gran % 0.2 Neutrophils % 64.3 Lymphocytes % 23.8 Monocytes % 7.1 Eosinophils % 4.0 Basophils % 0.6 Nucleated RBC % 0.0 Absolute Neutrophils 3.08 Absolute Lymphocytes 1.14 L Absolute Monocytes 0.34 Absolute Eosinophils 0.19 Absolute Basophils 0.03 Sodium 136 Potassium 4.5 Chloride 96 L Carbon Dioxide 33.0 H Anion Gap 7.0 BUN 15 Creatinine 0.4 L Est GFR (CKD-EPI 2020) 117.38 Glucose 106 Calcium 9.5 Magnesium 1.4 L Total Bilirubin 0.6 AST 38 H ALT 30 Alkaline Phosphatase 78 Total Protein 7.0 Albumin 3.5 Urine Color Yellow Urine Clarity Clear Urine pH 7.0 Ur Specific [place] 1.025 Urine Protein Negative Urine Ketones Negative Urine Blood Negative Urine Nitrite Negative Urine Bilirubin Negative Urine Urobilinogen 1.0 H Ur Leukocyte Esterase Negative Urine Glucose Negative COVID-19 Source SARS-CoV-2 (PCR) 12/17/21 03:19 WBC RBC Hgb Hct MCV MCH MCHC RDW Plt Count MPV Immature Gran % Neutrophils % Lymphocytes % Monocytes % Eosinophils % Basophils % Nucleated RBC % Absolute Neutrophils Absolute Lymphocytes Absolute Monocytes Absolute Eosinophils Absolute Basophils Sodium Potassium Chloride Carbon Dioxide Anion Gap BUN Creatinine Est GFR (CKD-EPI 2020) Glucose Calcium Magnesium Total Bilirubin AST ALT Alkaline Phosphatase Total Protein Albumin Urine Color Urine Clarity Urine pH Ur Specific [place] Urine Protein Urine Ketones Urine Blood Urine Nitrite Urine Bilirubin Urine Urobilinogen Ur Leukocyte Esterase Urine Glucose COVID-19 Source Nasal/Nares SARS-CoV-2 (PCR) Negative
[2021-12-17] MEDS: Lactated Ringers 1,000 ML 125 ML IV ×2 (10:03→18:34)
--- NOTE | 2021-12-17 12:42 | PT.INIE ---
Date of service: 12/17/21 Time of Service: 12:42 PT Notes Visit Reasons: Weakness Physical Therapy Inpatient Initial Evaluation Date: 12/17/2021 Referring Doctor:? Yonas Arteaga? PT Orders: PT CONSULT: Limited ability Precautions: Fall. Standard. Activity as tolerated. Patient Profile/Admitting Diagnosis:? Patient is a 71-year-old male patient with past medical history significant for traumatic brain injury and Parkinsonism who presented to the ED on 12/16/2021 due to weakness and altered mental status.? PMHX: All Active Problems? 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 Acid reflux Anemia Atelectasis BPH (benign prostatic hyperplasia) Dysphagia BRIGID on CPAP Traumatic brain injury Surgical History? S/P decompression of ulnar nerve at elbow S/P left hemicolectomy (~12/25/20) Social History/Home Situation: Lives with 24/7caregivers at caregivers's home.? Independent with all ambulation using no assistive device.? 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 per RUSSELL Myers,? patient last worked there on November 23, 2021.? After that, patient has been noticeably weaker and appeared not himself.? Equipment Owned/DME: [facility] Subjective: Agreeable to PT consult.? Per RUSSELL Myers,? patient is not at baseline alertness level and energy level right now.? Needed encouragement to get out of bed as he feels that he can become incontinent with effort. He also feels that COVID may have made him like this. Objective: General Observation: Seated on chair.? Colostomy in place. Mental Status: Mildly lethargis but? is oriented as to person, place, time, and purpose. Able to pay attention, focus, and respond appropriately, albeit slower than normal. Pain: Denies Vital Signs: WNL as closely monitored by nursing staff ROM: Right Upper Extremity: ? Shoulder Flexion WFL. Shoulder abduction WFL. Elbow flexion WFL. Wrist flexion WFL. Functional opening and closing of hand WFL. Left Upper Extremity:? Shoulder Flexion WFL. Shoulder abduction WFL. Elbow flexion WFL. Wrist flexion WFL. Functional opening and closing of hand WFL. Right Lower Extremity: Hip flexion WFL. Hip abduction WFL. Knee flexion WFL. Ankle dorsiflexion WFL. Ankle plantarflexion WFL. Left Lower Extremity: Hip flexion WFL. Hip abduction WFL. Knee flexion WFL. Ankle dorsiflexion WFL. Ankle plantarflexion WFL. Strength: Right Upper Extremity: Shoulder flexors 4/5. Shoulder abductors 4/5. Elbow flexors 5/5. Elbow extensors 5/5. Study Specialist strong. Left Upper Extremity: Shoulder flexors 4/5. Shoulder abductors 4/5. Elbow flexors 5/5. Elbow extensors 5/5. Study Specialist strong. Right Lower Extremity: Hip flexors 4/5. Hip abductors 4/5. Knee flexors 5/5. Knee extensors 4/5. Ankle dorsiflexors 4-/5. Ankle plantarflexors 4/5. Left Lower Extremity: Hip flexors 4/5. Hip abductors 4/5. Knee flexors 5/5. Knee extensors 4/5. Ankle dorsiflexors 4-/5. Ankle plantarflexors 4/5. Bed Mobility/Transfers: Rolling supervision Supine to sit supervision Sit to supine supervision Sit to stand stand by assist Stand to sit stand by assist Bed to reclining chair stand by assist Gait: Instructed patient with level surface ambulation of 40 feet requiring minimal assist of 2.? Base of support narrowed. Step length decreased. Needs constant tactile cueing and encouragement to continue walking. Balance: Static Sitting: Normal Dynamic Sitting: Normal Static Standing: Good Dynamic Standing: Fair Special Tests: Mobility Limitations Standardized Measure [facility] 6 clicks Basic Mobility Inpatient Short Form: Raw Score: 24? CMS Score: 0% deficit? ? 4-stage Balance test:? Unable to maintain 4 positions for 10 seconds without losing balance signifying at risk for falls.? Informed Consent/Education:? Patient was instructed in purpose of PT consult and plan of care. Agreeable to proceed with established PT POC to achieve personal goals. Assessment: Patient presents with clinical signs and symptoms consistent with current/admitting diagnoses that have resulted to mobility limitations, gait instability, generalized weakness, and overall ADL decline as demonstrated by the following impairment level findings: 1. Decreased strength to B UE/LE major muscle groups 2. Impaired sitting/standing balance 3. Impaired activity tolerance 4. Shortness of breath 5. Swelling Impairments are contributing to the following functional limitations: 1. Decline in bed mobility skills 2. Decline in transfer skills 3. Difficulty with ambulation without assistive device and physical assistance 4. Increased completion time for mobility ADL performance 5. Increased risk for falls 6. Difficulty with managing steps alone safely Patient is assessed as a 01321 moderate complexity based on the following: History: 70-year-old male with past medical history as indicated above Examination: Demonstrable impairment in strength, balance, and mobility level with underlying impairments and functional limitations as exhibited above as well as deficit score of 0% utilizing the [facility] Mobility Inpatient Short Form Presentation: Stable Decision Makin moderate complexity Goals: Goals X1 week 1. Supine-Sit independent 2. Sit-Supine independent 3. Sit-Stand independent 4. Stand-Sit independent 5. Bed-Chair independent 6. Chair-Bed independent 7. Independent gait on level surface with use of no AD for at least 1000 feet without report of pain nor dyspnea 8. Good static and dynamic standing balance/tolerance Plan of Care/Treatment Plan: 1-2x/day, 7 days/week x 1 week. Plan of care has been reviewed with the [employer] ASSISTANT providing the service under Physical Therapy direction. Initiate Physical Therapy intervention for pain management as needed, strengthening, bed mobility, transfers, gait, stairs, balance training, and use of assistive device. DISCHARGE RECOMMENDATIONS: B UE/LE ? Home with no services []? Home with services.? Home when medically cleared by hospitalist.? Patient will benefit from home health PT services in order to progress mobility level using least restrictive assistive ambulatory device, assess home safety, identify additional equipment needs, and establish a functional maintenance program that will increase ability of patient to remain at home. [] ? Home with outpatient PT [] [] ? SNF for continued rehabilitation [] [] ? Correction Care [] [] ? SNF versus LTC based on ability to participate and progress [] [X] 09/09 caregiver vs. SNF TREATMENT CODE/TIME: 58672 x 20 minutes, 00433 x 24 minutes beginning at 12:42 PM. Thank you for the opportunity to participate in the care of this patient. Donna Strickland PT, DPT, CLT [facility] [place], [place]
--- NOTE | 2021-12-17 16:30 | PDOC.EEG ---
Neurology EEG EEG: [facility] Department of Neurology INPATIENT EEG REPORT Date of Recordin12/17/21 Interpreting Physician: Dr. Meena Martínez Reason for study: Blake is a 71 year-old with recent new diagnosis of epilepsy started on LEV 1000mg BID admitted with confusion. Current Medications: Current Medications Acetaminophen (Acetaminophen 325 Mg Tab) 650 mg PO Q4H PRN PRN Aripiprazole (Aripiprazole 5 Mg Tab) 10 mg PO DAILY [facility] Last Admin: 12/17/21 08:56 Dose: 10 mg Desmopressin Acetate (Desmopressin 0.2 Mg Tab) 0.4 mg PO QPM [facility] Dimethicone/Zinc Oxide (Momo Protect Cream 142 Gm Tube) 0 gm TP PRN PRN Docusate Sodium (Docusate Sodium 100 Mg Cap) 100 mg PO DAILY AM [facility] Last Admin: 12/17/21 06:35 Dose: Not Given Esomeprazole Magnesium (Esomeprazole 40 Mg Capcr) 40 mg PO 0730 [facility] Last Admin: 12/17/21 08:56 Dose: 40 mg Sodium Chloride (Saline 500ml Bag) 500 mls @ 0 mls/hr IV PRN PRN Ringer's Solution () 1,000 mls @ 125 mls/hr IV INFUSION [facility] Stop: 12/18/21 17:44 Last Admin: 12/17/21 10:03 Dose: 125 mls/hr IV Miscellaneous Supplies (Iv Access) 1 each IV DIRECTED [facility] Ketoconazole (Ketoconazole 2% Cream 15 Gm Tube) 0 gm TP DAILY PRN PRN Levetiracetam (Levetiracetam 500 Mg Tab) 1,000 mg PO BID [facility] Last Admin: 12/17/21 08:55 Dose: 1,000 mg Magnesium Oxide (Magnesium Oxide 400 Mg Tab) 400 mg PO DAILY [facility] Last Admin: 12/17/21 08:52 Dose: 400 mg Melatonin (Melatonin 3 Mg Tab) 3 mg PO QPM [facility] Polyethylene Glycol (Polyethylene Glycol 3350 17 Gm Packet) 17 gm PO DAILY [facility] Last Admin: 12/17/21 08:51 Dose: 17 gm Polyethylene Glycol (Polyethylene Glycol 3350 17 Gm Packet) 17 gm PO BID PRN PRN Risperidone (Risperidone 0.5 Mg Tab) 0.5 mg PO QPM [facility] Sennosides (Senna Tab) 1 tab PO BID PRN PRN Sodium Chloride (Normal Saline Flush 10 Ml Syr) 0 ml IVP PRN PRN Solifenacin (Solifenacin 5 Mg Tab) 10 mg PO DAILY [facility] Last Admin: 12/17/21 11:43 Dose: 10 mg Tamsulosin HCl (Tamsulosin 0.4 Mg Capcr) 0.4 mg PO DAILY [facility] Last Admin: 12/17/21 08:54 Dose: 0.4 mg METHODS: A 21 channel digitized electroencephalogram was performed in the [facility] Med/Surg Floor or ICU. The 10/20 international system of electrode placement was used and bipolar and referential electrode montages were recorded. In addition to EEG the patient was monitored for EKG and lateral/vertical eye movements. Activation procedures of photic stimulation and hyperventilation were performed if applicable. Video was used during activation procedures and during events where applicable. The duration of the recording was 30 minutes. DESCRIPTION OF EEG: The patient was noted to be awake, drowsy, and asleep during the recording. During maximal wakefulness a 9-Hz posterior background rhythm was present which was well-modulated, symmetrical, reactive to eye opening, and of moderate voltage. With eye opening the background activity changed to a low voltage mixture of alpha, beta, and occasional theta range frequencies. Faster frequencies were present in the bilateral anterior head regions. There was a normal anterior-posterior voltage gradient. During drowsiness, there was attenuation of the posterior dominant background rhythm and vertex waves. Stage II sleep was present with symmetrical sleep spindles, K-complexes, and vertex waves. During sleep, the tractor technician witnessed apneic type breathing. Activating Procedures: Photic stimulation was performed which produced a symmetrical posterior driving response at various flash frequencies. Hyperventilation was not performed. EKG: EKG revealed normal sinus rhythm. INTERPRETATION: This EEG is normal during the awake and sleep states as well as during photic stimulation. PRIOR EEG: -EEG (12/11/21): Frequent bursts of generalized [id number] discharges with a a right frontal predominance. Lack of PDR and normal awake/asleep architecture. CLINICAL CORRELATION: No focal regions of cerebral dysfunction or epileptiform activity was present. Dramatic improvement compared to previous EEG. The tractor technician noted some apneic breathing during sleep - consider an outpatient sleep study. Meena Martínez MD
[2021-12-17] MEDS: Desmopressin 0.2 MG TAB 0.4 MG PO (20:01)
[2021-12-17] MEDS: Melatonin 3 MG TAB PO (20:01)
[2021-12-17] MEDS: risperiDONE 0.5 MG TAB PO (20:01)
--- NOTE | 2021-12-17 22:01 | W.PM.PROGNOT ---
Date of Service Date of service: 12/17/21 Time of Service: 20:00 Subjective Subjective Interval history since last seen: Mr Bazzi was seen in brief follow up. Nursing reported urinary urgency. His UA was not c/w a UTI. He had an EEG today which looked better than prior. No epileptiform activity was present. Discussed case with Dr Martínez: will try to hydrate the patient today/overnight. If his behavior remains not at his baseline, we could consider changing his anticonvulsant medication. Continue keppra for now. PT consulted. No inpatient psychiatry service is available at [facility] at this time, but would benefit from a psychiatric consult as outpatient. Magnesium repleted. DVT ppx with lovenox Objective Last Vital Signs Temp 37.2 C 12/17/21 14:12 Pulse 84 12/17/21 14:12 Resp 18 12/17/21 14:12 BP 112/72 12/17/21 14:12 Pulse Ox 93 12/17/21 14:12 Laboratory Results - last 24 hr 12/17/21 12/17/21 12/17/21 00:44 00:44 02:22 WBC 4.79 RBC 4.05 L Hgb 12.1 L Hct 38.0 L MCV 94 MCH 29.9 MCHC 31.8 L RDW 12.5 Plt Count 226 MPV 9.4 Immature Gran % 0.2 Neutrophils % 64.3 Lymphocytes % 23.8 Monocytes % 7.1 Eosinophils % 4.0 Basophils % 0.6 Nucleated RBC % 0.0 Absolute Neutrophils 3.08 Absolute Lymphocytes 1.14 L Absolute Monocytes 0.34 Absolute Eosinophils 0.19 Absolute Basophils 0.03 Sodium 136 Potassium 4.5 Chloride 96 L Carbon Dioxide 33.0 H Anion Gap 7.0 BUN 15 Creatinine 0.4 L Est GFR (CKD-EPI 2020) 117.38 Glucose 106 Calcium 9.5 Magnesium 1.4 L Total Bilirubin 0.6 AST 38 H ALT 30 Alkaline Phosphatase 78 Total Protein 7.0 Albumin 3.5 Urine Color Yellow Urine Clarity Clear Urine pH 7.0 [address] [place] 1.025 Urine Protein Negative Urine Ketones Negative Urine Blood Negative Urine Nitrite Negative Urine Bilirubin Negative Urine Urobilinogen 1.0 H Ur Leukocyte Esterase Negative Urine Glucose Negative COVID-19 Source SARS-CoV-2 (PCR) 12/17/21 03:19 WBC RBC Hgb Hct MCV MCH MCHC RDW Plt Count MPV Immature Gran % Neutrophils % Lymphocytes % Monocytes % Eosinophils % Basophils % Nucleated RBC % Absolute Neutrophils Absolute Lymphocytes Absolute Monocytes Absolute Eosinophils Absolute Basophils Sodium Potassium Chloride Carbon Dioxide Anion Gap BUN Creatinine Est GFR (CKD-EPI 2020) Glucose Calcium Magnesium Total Bilirubin AST ALT Alkaline Phosphatase Total Protein Albumin Urine Color Urine Clarity Urine pH Ur Specific [place] Urine Protein Urine Ketones Urine Blood Urine Nitrite Urine Bilirubin Urine Urobilinogen Ur Leukocyte Esterase Urine Glucose COVID-19 Source Nasal/Nares SARS-CoV-2 (PCR) Negative
[2021-12-18 06:51] LABS: Abs Immature Grans 0.01 10^3/uL (0.0-0.06); Absolute Basophil Count 0.04 10^3/uL (0.0-0.2); Absolute Eosinophil Count 0.14 10^3/uL (0.0-0.7); Absolute Monocyte Count 0.29 10^3/uL (0.1-0.8); Absolute Neutrophil Count 2.96 10^3/uL (1.2-6.7); Basophils % 0.9; Eosinophils % 3.1; HCT 35.8 % (40.0-50.0); HGB 11.9 g/dL (13.5-17.5); Immature Grans % 0.2; Lymphocytes % 24.2; MCH 30.4 pg (27.0-33.0); MCHC 33.2 % (32.0-36.0); MCV 92 fL (80-95); MPV 9.5 fL (8.0-11.0); Monocytes % 6.4; Neutrophils % 65.2; Platelet Count 226 10^3/uL (130-400); RBC 3.91 10^6/uL (4.36-5.78); RDW 12.5 % (11.8-14.1); RDW-SD 41.5 fL; WBC 4.54 10^3/uL (4.4-10.8)
[2021-12-18 07:14] LABS: ALT 21 U/L (16-63); AST 16 U/L (15-37); Albumin 3.1 g/dL (3.4-5.0); Alkaline Phosphatase 78 U/L (46-116); Bilirubin, Direct 0.2 mg/dL (0.0-0.2); Bilirubin, Total 0.5 mg/dL (0.2-1.0); Magnesium 1.8 mg/dL (1.8-2.4); Total Protein 6.5 g/dL (6.4-8.2)
[2021-12-18 07:38] LABS: Vitamin B12 618 pg/mL (193-986)
[2021-12-18] MEDS: Enoxaparin 40 MG/0.4 ML SYR SC (07:46)
[2021-12-18] MEDS: Polyethylene Glycol 3350 17 GM PACKET PO (07:47)
[2021-12-18] MEDS: Docusate Sodium 100 MG CAP PO (07:47)
[2021-12-18] MEDS: Esomeprazole 40 MG CAPCR PO (07:47)
[2021-12-18] MEDS: Tamsulosin 0.4 MG CAPCR PO (07:48)
[2021-12-18] MEDS: Magnesium Oxide 400 MG TAB PO (07:48)
[2021-12-18] MEDS: levETIRAcetam 500 MG TAB 1000 MG PO (07:48)
[2021-12-18] MEDS: ARIPiprazole 5 MG TAB 10 MG PO (07:48)
[2021-12-18 07:56] LABS: Anion Gap 7.4 mmol/L (3-11); BUN 11 mg/dL (7-18); CO2 29.6 mmol/L (21.0-32.0); CREATININE 0.6 mg/dL (0.70-1.30); Calcium 9.2 mg/dL (8.5-10.1); Chloride 100 mmol/L (98-107); Estimated GFR 103.85 (mL/min/1.73m2); Glucose 98 mg/dL (74-106); Potassium 4.1 mmol/L (3.5-5.1); Sodium 137 mmol/L (136-145)
[2021-12-18 08:42] VITALS: BP 136/73; PULSE 86; RESP 17; TEMP 37.1; O2SAT 94
--- NOTE | 2021-12-18 10:54 | PT.INTREAT ---
Date of service: 12/18/21 Time of Service: 10:27 PT Notes Visit Reasons: Weakness Inpatient Physical Therapy Treatment Note [facility] Date: 12/18/2021 PRECAUTIONS: Activity as tolerated, fall, seizure SUBJECTIVE: Blake is pleasant and agreeable to participating in PT. He reports that he is feeling much better today. His goal to is eventually be able to walk 10-12 miles. OBJECTIVE: PAIN: No c/o pain BED MOBILITY/TRANSFERS: Supine-sit: SBA with cueing Sit-stand: SBA Stand-sit: SBA GAIT Assistive Device: No AD Weight bearing: Full Assist: SBA Distance: 200' Deviation: Steady gait, slow pacing, narrow BRIANA, short step height and length TOILETING: Patient requires assist for undergarment change ASSESSMENT: Patient demonstrates improved activity tolerance and mobility compared to previous PT session. He is not quite at his reported normal baseline. PLAN: Continue with global strengthening and general conditioning for continued progression toward baseline level of function. TREATMENT CODE/TIME: 24 minutes; [id number] x2 (10:27)
--- NOTE | 2021-12-18 12:53 | W.PM.PROGNOT ---
Date of Service Date of service: 12/18/21 Time of Service: 12:53 Assessment and Plan Assessment and plan (1) Weakness: Status: Acute (2) Altered mental status: Status: Acute (3) Parkinsonism: Status: Acute Qualifiers: Parkinsonism type: secondary Parkinsonism Secondary Parkinsonism type: neuroleptic-induced Qualified Code(s): G21.11 - Neuroleptic induced parkinsonism (4) Epilepsy: Status: Acute Assessment and plan: Blake is readmitted for ongoing weakness, behavior/personality changes, and at times confusion that has been ongoing for ~ 1month s/p COVID infection, complicated by baseline cognitive impairment s/p TBI and neuroleptic-induced Parkinsonsism. Currently laboratory unremarkable except for some dehydration and slightly elevated LFTs which trended back to normal. Updated EEG was normal. He has returned back to baseline per caregiver s/p day of hydration and rest. Continue LEV 1000mg BID. Agree with psychiatry as an outpatient. He may be able to get care through [facility] which he is a part of.... Increasing bradykinesia complicated by illness. He has f/up with me next week. Depending on how next week goes, may start Sinemet. He will follow-up next week as scheduled. Subjective Subjective Interval history since last seen: Lucia at bedside today. Notes around 3pm yesterday started to improve and now at baseline. Appetite is back. Participating again. EEG yesterday evening was normal with no epileptiform activity. Exam Narrative Exam Narrative: Physical Exam: Constitutional: Patient of apparent stated age, well nourished, well developed, no acute distress, mild-moderate hypomimia Neuro: MS/Language/Speech: Alert, oriented to self, clear language (fluency and comprehension), mild dysarthria Motor: Normal bulk. Mild ?RUE cogwheel rigidity. Diffuse mild bradykinesia. FMM reduced bilaterally, no pronator drift. 5/5 strength in bilateral upper and lower extremities. RUE tremor with eating. Sensation: Intact to light touch throughout Coordination: Finger to nose performed without dysmetria Gait: not seen as he was eating lunch Objective Last Vital Signs Temp 98.8 F 12/18/21 08:42 Pulse 86 12/18/21 08:42 Resp 17 12/18/21 08:42 BP 136/73 12/18/21 08:42 Pulse Ox 94 12/18/21 08:42 Laboratory Results - last 24 hr 12/18/21 12/18/21 12/18/21 06:27 06:27 06:27 WBC RBC Hgb Hct MCV MCH MCHC RDW Plt Count MPV Immature Gran % Neutrophils % Lymphocytes % Monocytes % Eosinophils % Basophils % Nucleated RBC % Absolute Neutrophils Absolute Lymphocytes Absolute Monocytes Absolute Eosinophils Absolute Basophils Sodium 137 Potassium 4.1 Chloride 100 Carbon Dioxide 29.6 Anion Gap 7.4 BUN 11 Creatinine 0.6 L Est GFR (CKD-EPI 2020) 103.85 Glucose 98 Calcium 9.2 Magnesium 1.8 Total Bilirubin 0.5 Conjugated Bilirubin 0.2 AST 16 ALT 21 Alkaline Phosphatase 78 Total Protein 6.5 Albumin 3.1 L Vitamin B12 618 12/18/21 06:27 WBC 4.54 RBC 3.91 L Hgb 11.9 L Hct 35.8 L MCV 92 MCH 30.4 MCHC 33.2 RDW 12.5 Plt Count 226 MPV 9.5 Immature Gran % 0.2 Neutrophils % 65.2 Lymphocytes % 24.2 Monocytes % 6.4 Eosinophils % 3.1 Basophils % 0.9 Nucleated RBC % 0.0 Absolute Neutrophils 2.96 Absolute Lymphocytes 1.10 L Absolute Monocytes 0.29 Absolute Eosinophils 0.14 Absolute Basophils 0.04 Sodium Potassium Chloride Carbon Dioxide Anion Gap BUN Creatinine Est GFR (CKD-EPI 2020) Glucose Calcium Magnesium Total Bilirubin Conjugated Bilirubin AST ALT Alkaline Phosphatase Total Protein Albumin Vitamin B12
--- NOTE | 2021-12-18 13:28 | PT.INTREAT ---
PT Notes Visit Reasons: Weakness Inpatient Physical Therapy Treatment Note [facility] Date: 12/18/21 OBJECTIVE: Sit-stand: SBA Stand-sit: SBA GAIT Assistive Device: No assistive device Weight bearing: Full Assist: SBA Distance: 650ft THEREX: Seated shoulder flexion x 10, shoulder horz abd x 10, rowing x 10, LAQ x10, and marching x 10. ASSESSMENT: Pt was very willing to complete his PT session. Pt tolerated today's session well with SBA for all of his ambulations and transfers. PLAN: Cont as per PT POC. TREATMENT CODE/TIME: 12:45-1:15 30 TAx2
--- NOTE | 2021-12-18 13:51 | DSE_ITS ---
Date of service: 12/18/21 Time of Service: 13:52 DS: Diagnosis Discharge Diagnosis (1) Weakness: Status: Acute (2) Altered mental status: Status: Acute (3) Parkinsonism: Status: Acute (4) Epilepsy: Status: Acute Discharge Plan Disposition Patient Disposition: HOME W/HOME HEALTH SERVICE Condition: Improving Discharge Details Reason For Visit: Weakness Admit Date/Time: 12/17/21 04:01 Admit Provider: Yonas Arteaga Attending Provider: Yonas Arteaga Primary Care Provider: Shon Larios Hospital Course Hospital Course: 71-year-old male with a history of parkinsonism and TBI recently hospitalized from 1024 through 1027 with hyponatremia thought to be due to a combination of medications and recent excessive water intake had fluctuating electrolyte abnormalities and sustained a seizure. Patient was started on Keppra and was discharged as usual medications except for his Prozac was discontinued. Since discharge he has had generalized lack of energy and weakness as well as personality changes. He was admitted to the hospital through the emergency department 12/17/2021. X-ray of his lumbar spine was taken because of complaints of lower back pain that showed DJD but no fractures. Laboratory studies on admission demonstrated stable serum sodium level of 136 with a normal potassium of 4.5 and a low magnesium 1.4. Magnesium was replaced and repeat level on 12/18/2021 was 1.8. Repeat BMP shows stable serum sodium of 137. B12 level was normal at 618 LFTs were normal. CBC showed normal white count of 4500 borderline anemic changes with a hemoglobin of 12 g. Patient had a repeat EEG done during this admission that showed normal EEG during awake and sleep states as well as during photic stimulation. Previous EEG had shown frequent bursts of generalized polyspike and wave discharges with right frontal prominence. His neurologist saw him in consultation. She recommended getting the updated EEG which was done as noted above. She also considered switching his Keppra to another agent in the event if it was causing adverse drug reactions. She also considered addition of Sinemet but decided to hold out until he saw how well he did with hydration and physical therapy and she recommended repeat B12 level which was checked and found to be normal. Finally she indicated that we should consider whether a worsening mood disorder may be contributing to his symptoms. For this is recommended that the patient and his caregiver follow-up with outpatient psychiatry through [facility]. With really no change in his medications he improved and with physical therapy they did an evaluation and found that he had decreased strength in both upper and lower extremity major muscle groups with impaired sitting and standing balance impaired activity tolerance. However with additional physical therapy he showed marked improvement in his tolerance and mobility by the morning of 12/18/2021 and by the afternoon patient was ambulating with just standby assistance with cueing going as far as 200 feet. It is recommended he continue to receive physical therapy and also add occupational therapy for in-home treatment. Patient is discharged in markedly improved condition. Patient will be referred to [facility] psychiatry department for follow-up regarding his TBI and his mood disorder. Home Meds and New Rx's Prescriptions: Continued tamsulosin 0.4 mg capsule 0.4 mg PO DAILY esomeprazole magnesium [Nexium] 40 mg capsule,delayed release(DR/EC) 40 mg PO DAILY risperidone [Risperdal] 0.5 mg tablet 0.5 mg PO QPM ketoconazole 2 % cream 1 applic topical DAILY PRN desmopressin 0.2 mg tablet 0.4 mg PO QPM aripiprazole [Abilify] 10 mg Tablet 10 mg PO DAILY solifenacin [Vesicare] 10 mg Tablet 10 mg PO DAILY polyethylene glycol 3350 17 gram Powder In Packet 17 g PO DAILY Qty: 100 3RF Rx Instructions: take daily and as needed BID melatonin 3 mg tablet 3 mg PO QPM sennosides [Senokot] 8.6 mg Tablet 8.6 mg PO BID PRN PRNQty: 30 0RF docusate sodium 100 mg capsule 100 mg PO DAILY AM Qty: 30 0RF magnesium oxide 400 mg (241.3 mg magnesium) tablet 400 mg PO DAILY Qty: 30 0RF levetiracetam [Keppra] 1,000 mg tablet 1,000 mg PO BID Qty: 60 0RF Discharge Instructions Instructions: Hyponatremia (DC) Additional Instructions: Limit free water to 1 liter per day; however, Blake may have other fluids including Gatorade, juices, teas, coffee w/ no limits. Stand Alone Forms: Nursing Discharge Form Referrals: PSYCHIATRY,[facility] [OTHER] - (Please call to make an Appointment [phone]) Shon Larios [Primary Care Provider] - (Please Keep Appointment that was make last week ) Meena Martínez MD [ [facility] STAFF PHYSICIAN] - (Please Keep Appointment that was make last week ) Activity:: Activity as Tolerated Equipment/Supplies:: No Equipment Needed Diet:: Normal Diet Discharge Orders Discharge Orders: Discharge Order (Routine); Ordered 12/18/21 Ordered By: Seymour Singh Other Ambulatory Orders: Basic Metabolic Panel (Routine) Facility: [facility] - Location: Laboratory Outpatient - [facility] Ordered By: Seymour Singh Discharge Data Discharge Date/Time-TO BE ENTERED AT DEPARTURE: 12/18/21 15:25 DS: Summary Time Spent with Patient providing and/or coordinating discharge services: Less than 30 minutes Status at Discharge Functional status at discharge: independent ambulation Overall status at discharge: patient is back to baseline Mental Status: mental status grossly normal Speech and Movement: speech and movement normal Mood: congruent mood Affect: normal affect Exam Narrative Exam Narrative: Blake was seen ambulating around the nursing floor multiple times w/ P.T. He has no acute complaints He is eating well, denies any dyspnea or CP. He is eager to return home Lungs: clear Heart: RRR Neuro: he appears to be back to his baseline, normal range of motion and strength. He has some slight tremors in his right hand. Psych Mental Status: mental status grossly normal Speech and Movement: speech and movement normal Mood: congruent mood Affect: normal affect DS: Data Vitals/I&O Vitals and I&O: Vital Signs Temperature 37.1 C 12/18/21 08:42 Temperature Source Tympanic 12/18/21 08:42 Pulse 86 12/18/21 08:42 Pulse Rhythm Regular 12/18/21 12:43 Pulse 64 12/17/21 04:20 Respiratory Rate 17 12/18/21 08:42 Respiratory Effort Non-Labored 12/18/21 12:43 Respiratory Depth Normal 12/18/21 12:43 Respiratory Pattern Normal 12/18/21 12:43 Blood Pressure 136/73 12/18/21 08:42 Blood Pressure Mean 76 12/17/21 04:16 Blood Pressure Position Supine 12/17/21 00:25 Pulse Oximetry 94 12/18/21 08:42 Oxygen Delivery Method Room Air 12/18/21 08:42 Oxygen Flow Rate 0 12/18/21 08:42 Pain Level 0 12/18/21 08:42 Comment 12/17/21 04:40 Intake & Output 12/17/21 12/18/21 12/18/21 23:59 11:59 23:59 Intake Total 1000 / 1737.5 Output Total 1000 / 2600 1250 / 1250 Balance 0 / -862.5 -1250 / -1250 Intake: IV 1000 / 1737.5 Output: Urine 1000 / 2200 950 / 950 Stool 300 / 300 Other: Urine Color Yellow Yellow Urine Appearance Clear Clear Clear Urine Odor None None Comment pt stated pain while trying to urinate Voiding Methods Urinal Urinal Data Completed and Pending Labs on day of discharge: Labs from last 24 hours 12/18/21 12/18/21 12/18/21 06:27 06:27 06:27 WBC 4.54 RBC 3.91 L Hgb 11.9 L Hct 35.8 L MCV 92 MCH 30.4 MCHC 33.2 RDW 12.5 Plt Count 226 MPV 9.5 Immature Gran % 0.2 Neutrophils % 65.2 Lymphocytes % 24.2 Monocytes % 6.4 Eosinophils % 3.1 Basophils % 0.9 Nucleated RBC % 0.0 Absolute Neutrophils 2.96 Absolute Lymphocytes 1.10 L Absolute Monocytes 0.29 Absolute Eosinophils 0.14 Absolute Basophils 0.04 Sodium 137 Potassium 4.1 Chloride 100 Carbon Dioxide 29.6 Anion Gap 7.4 BUN 11 Creatinine 0.6 L Est GFR (CKD-EPI 2020) 103.85 Glucose 98 Calcium 9.2 Magnesium Total Bilirubin Conjugated Bilirubin AST ALT Alkaline Phosphatase Total Protein Albumin Vitamin B12 Hep Bs Antigen Pending Hep Bs Antibody Pending Hep Bs Antibody, Quant Pending Hep B Core Total Ab Pending Hepatitis C Antibody Pending 12/18/21 12/18/21 06:27 06:27 WBC RBC Hgb Hct MCV MCH MCHC RDW Plt Count MPV Immature Gran % Neutrophils % Lymphocytes % Monocytes % Eosinophils % Basophils % Nucleated RBC % Absolute Neutrophils Absolute Lymphocytes Absolute Monocytes Absolute Eosinophils Absolute Basophils Sodium Potassium Chloride Carbon Dioxide Anion Gap BUN Creatinine Est GFR (CKD-EPI 2020) Glucose Calcium Magnesium 1.8 Total Bilirubin 0.5 Conjugated Bilirubin 0.2 AST 16 ALT 21 Alkaline Phosphatase 78 Total Protein 6.5 Albumin 3.1 L Vitamin B12 618 Hep Bs Antigen Hep Bs Antibody Hep Bs Antibody, Quant Hep B Core Total Ab Hepatitis C Antibody PFSH All Active Problems Epilepsy (Acute) Altered mental status (Acute) Weakness (Acute) First time seizure (Acute) Hypomagnesemia (Acute) Seizure (Acute) General weakness (Acute) Acute hyponatremia (Acute) GERD (gastroesophageal reflux disease) (Chronic) Hyperreflexia (Acute) Parkinsonism (Acute) Yeast dermatitis (Acute) 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
[2021-12-18 15:42] LABS: Levetiracetam 22.9 mcg/mL
--- NOTE | 2021-12-18 16:33 | CMDISCH_ITS ---
- If Service Date Differs Date of service: 12/18/21 Time of Service: 16:33 LACE Index Scoring Tool - Questions: Length of Stay (in days): 1 Acuity (Admit via E.D.?): Yes E.D. Visits: 5 - Answers: Total Score: 8 Risk of Readmission: Low Risk Care Management Discharge Reason for Hospitalization: weakness Discharge Plan: After speaking with [facility], LAUREL left for guardian, requesting her to sign orders so that VNA services can be opened for Blake at home. LAUREL also spoke with EVANS Mack at [facility] and connected him with the RN on the floor. Blake will return home, with home health services at home, follow up with [facility] Psychiatry per MD, as well as PCP and plan of care. He will transport via private vehicle with his caregiver, Lucia. Patient/Family Education Needs: Review discharge instructions, discuss Ask Me Three. Services Needed at Discharge: Home Health Care Services (PT/OT)
--- NOTE | 2021-12-18 18:20 | INDS_ITS ---
Date of service: 12/18/21 PT Notes Visit Reasons: Weakness Physical Therapy Inpatient Discharge Summary Date: 12/18/2021 Dates of Service: 12/17/2021 through 12/18/2021 This is a clinical summary of care provided for the duration of dates listed above. No charge was made in the completion of this documentation. Referring Doctor:? Yonas Arteaga? PT Orders: PT CONSULT: Limited ability Precautions: Fall. Standard. Activity as tolerated. Patient Profile/Admitting Diagnosis:? Patient is a 71-year-old male patient with past medical history significant for traumatic brain injury and Parkinsonism who presented to the ED on 12/16/2021 due to weakness and altered mental status.? PMHX: All Active Problems? 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 Acid reflux Anemia Atelectasis BPH (benign prostatic hyperplasia) Dysphagia BRIGID on CPAP Traumatic brain injury Surgical History? S/P decompression of ulnar nerve at elbow S/P left hemicolectomy (~12/25/20) Social History/Home Situation: Lives with 24/7caregivers at caregivers's home.? Independent with all ambulation using no assistive device.? 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 per RUSSELL Myers,? patient last worked there on November 23, 2021.? After that, patient has been noticeably weaker and appeared not himself.? Equipment Owned/DME: [facility] Subjective: NT. See most recent [employer] notes. Objective: General Observation: NT. See most recent ASSIST[employer] O[employer]ATOR notes. Pain: NT. See most recent ASSIST[employer] OPERATOR notes. Vital Signs: NT. See most recent ASSIST[employer] O[employer] notes. ROM: Right Upper Extremity: ? Shoulder Flexion WFL. Shoulder abduction WFL. Elbow flexion WFL. Wrist flexion WFL. Functional opening and closing of hand WFL. Left Upper Extremity:? Shoulder Flexion WFL. Shoulder abduction WFL. Elbow flexion WFL. Wrist flexion WFL. Functional opening and closing of hand WFL. Right Lower Extremity: Hip flexion WFL. Hip abduction WFL. Knee flexion WFL. Ankle dorsiflexion WFL. Ankle plantarflexion WFL. Left Lower Extremity: Hip flexion WFL. Hip abduction WFL. Knee flexion WFL. Ankl e dorsiflexion WFL. Ankle plantarflexion WFL. Strength: Right Upper Extremity: Shoulder flexors 4/5. Shoulder abductors 4/5. Elbow flexors 5/5. Elbow extensors 5/5. Labor Delivery Rn strong. Left Upper Extremity: Shoulder flexors 4/5. Shoulder abductors 4/5. Elbow flexors 5/5. Elbow extensors 5/5. Labor Delivery Rn strong. Right Lower Extremity: Hip flexors 4/5. Hip abductors 4/5. Knee flexors 5/5. Knee extensors 4/5. Ankle dorsiflexors 4-/5. Ankle plantarflexors 4/5. Left Lower Extremity: Hip flexors 4/5. Hip abductors 4/5. Knee flexors 5/5. Knee extensors 4/5. Ankle dorsiflexors 4-/5. Ankle plantarflexors 4/5. BED MOBILITY/TRANSFERS: ? Supine-sit: SBA with cueing? Sit-stand: SBA ? Stand-sit: SBA? GAIT? Assistive Device: No AD? Weight bearing: Full Assist: SBA? Distance:? 200' ? Deviation: Steady gait, slow pacing, narrow BRIANA, short step height and length Balance: Static Sitting: Normal Dynamic Sitting: Normal Static Standing: Good Dynamic Standing: Fair 4-stage Balance test:? Unable to maintain 4 positions for 10 seconds without losing balance signifying at risk for falls.? Assessment: Patient presents with clinical signs and symptoms consistent with current/admitting diagnoses that have resulted to mobility limitations, gait instability, generalized weakness, and overall ADL decline as demonstrated by the following impairment level findings: 1.? Decreased strength to B UE/LE major muscle groups 2.? Impaired sitting/standing balance 3.? Impaired activity tolerance 4.? Shortness of breath 5.? Swelling Impairments are contributing to the following functional limitations: 1.? Decline in bed mobility skills 2.? Decline in transfer skills 3.? Difficulty with ambulation without assistive device and physical assistance 4.? Increased completion time for mobility ADL performance 5.? Increased risk for falls 6.? Difficulty with managing steps alone safely Goals: Goals X1 week 1. Supine-Sit independent NOT MET 2. Sit-Supine independent NOT MET 3. Sit-Stand independent NOT MET 4. Stand-Sit independent NOT MET 5. Bed-Chair independent NOT MET 6. Chair-Bed independent NOT MET 7. Independent gait on level surface with use of no AD for at least 1000 feet without report of pain nor dyspnea NOT MET 8. Good static and dynamic standing balance/tolerance NOT MET DISCHARGE RECOMMENDATIONS: B UE/LE ? Home with no services []? Home with services.? Home when medically cleared by hospitalist.? Patient will benefit from home health PT services in order to progress mobility level using least restrictive assistive ambulatory device, assess home safety, identify additional equipment needs, and establish a functional maintenance program that will increase ability of patient to remain at home. [] ? Home with outpatient PT [] [] ? SNF for continued rehabilitation [] [] ? [facility] [] [] ? SNF versus LTC based on ability to participate and progress [] [X] ? 09/09 caregiver vs. SNF TREATMENT CODE/TIME: [place] Thank you for the opportunity to participate in the care of this patient. Donna Strickland PT, DPT, CLT [facility] [place], [place]
--- NOTE | 2021-12-18 20:08 | PDOC.HHF2F ---
Home Health Certification Home Health Certification: 1. Encounter Date and Reason I certify that Justus Bazzi was seen by Seymour Singh on 12/18/21 and that I had a [id number] encounter with this patient that meets the physician face to face encounter requirements. 2. Clinical Findings Supporting Skilled Need and Homebound Status I certify that home health services are medically necessary, include either intermittent assisted and/or physical/speech therapy, and that this patient is homebound in that absences from the home require considerable and taxing effort and are infrequent or of short duration, or are attributable to the need to receive medical care. [X] (a) Attached documentation from encounter provides clinical findings supporting skilled need and homebound status (including what assistance patient requires to leave the home). The encounter with the patient was in whole, or in part, for the following medical condition, which is the primary reason for home health care: Weakness [facility]: evaluate and treat for generalized weakness, seizures and TBI Physical Therapy: P.T. and O.T. to evaluate and treat for generalized weakness, deconditioning and decreased ADL performance related to recent multiple hospitalizations for hyponatremia and seizures. Speech Therapy: Homebound: secondary to deconditioning from multiple hospitalizations which places his health at risk in seeking medical care outside of his home 3. Certification and Authentication I certify that I composed the above information based on my clinical judgement relating to this patient's medical condition and, if applicable, clinical findings communicated to me by the NPP or inpatient physician who performed the Home Health Referral. All further orders will be obtained through ____Shon Larios (Community Based Physician - PCP)
[2021-12-18 20:44] LABS: HBs Antibody, Qual Negative (See Note); HBs Antibody, Quant <3.1 mIU/mL (See Note); Hepatitis B Core Antibody Negative (Negative); Hepatitis B surface Ag Negative (Negative); Hepatitis C Ab w Rflx HCV PCR Negative (Negative)
== END 2021-12-18 15:25 | disposition home health service (06) ==
LOC: ER 04:14 → MS 04:26
PROVIDERS: Internal Medicine; Admitting Provider General Practice; Emergency Provider Emergency Medicine; PCP Neuromusculoskeletal Medicine & OMM; Visit Provider General Practice
DX: R53.1 Weakness (principal); R41.82 Altered mental status, unspecified; G21.11 Neuroleptic induced parkinsonism; G40.909 Epilepsy, unspecified, not intractable, without status epilepticus; Z79.899 Other long term (current) drug therapy; E83.42 Hypomagnesemia; K21.9 Gastro-esophageal reflux disease without esophagitis; M54.50 Low back pain, unspecified; Z23 Encounter for immunization; M47.817 Spondylosis without myelopathy or radiculopathy, lumbosacral region; Z86.16 Personal history of COVID-19; D64.9 Anemia, unspecified; N40.0 Benign prostatic hyperplasia without lower urinary tract symptoms; G47.33 Obstructive sleep apnea (adult) (pediatric); Z90.49 Acquired absence of other specified parts of digestive tract; Z87.820 Personal history of traumatic brain injury; R41.89 Other symptoms and signs involving cognitive functions and awareness; R47.1 Dysarthria and anarthria
CPT/HCPCS: 36415; 80048; 80053; 80076; 86704; 86706; 86803; 87340; 87635; 90471; 90662; 95819; 96361; 96365; 96366; 96372; 97162; 97530; 99220; 99225; 99285; J1650; 72100; 80177; 81003; 82607; 83735; 85025; 99217; 99219; G0378; J3490

== ENCOUNTER 2021-12-25 11:15 | Outpatient (CLI) | payer MEDICARE, MEDICAID, SELFPAY ==
[2021-12-25 13:49] LABS: BUN 15 mg/dL (7-18); CREATININE 0.7 mg/dL (0.70-1.30); Calcium 9.5 mg/dL (8.5-10.1); Chloride 94 mmol/L (98-107); Estimated GFR 99.12 (mL/min/1.73m2); Glucose 117 mg/dL (74-106); Magnesium 1.9 mg/dL (1.8-2.4); Potassium 4.6 mmol/L (3.5-5.1); Sodium 130 mmol/L (136-145)
== END 2021-12-25 11:16 | disposition home or self-care (01) ==
LOC: LBO 11:15
PROVIDERS: PCP Neuromusculoskeletal Medicine & OMM; Visit Provider Internal Medicine
DX: E83.42 Hypomagnesemia (principal); E87.1 Hypo-osmolality and hyponatremia
CPT/HCPCS: 36415; 80048; 99215; 83735

== ENCOUNTER → 2022-01-23 14:37 | Outpatient (BNVA) | payer MEDICARE, MEDICAID, SELFPAY | PROVIDERS: PCP Neuromusculoskeletal Medicine & OMM; Referring Provider Neuromusculoskeletal Medicine & OMM; Visit Provider Psychiatry & Neurology Neurology | DX: G21.11 Neuroleptic induced parkinsonism (principal); R29.2 Abnormal reflex; Z87.820 Personal history of traumatic brain injury; G40.909 Epilepsy, unspecified, not intractable, without status epilepticus; R45.1 Restlessness and agitation | CPT/HCPCS: 99215 ==

== ENCOUNTER → 2022-02-21 12:57 | Outpatient (BNVA) | payer MEDICARE, MEDICAID, SELFPAY | PROVIDERS: PCP Neuromusculoskeletal Medicine & OMM; Referring Provider Neuromusculoskeletal Medicine & OMM; Visit Provider Nurse Practitioner Gerontology | DX: N40.1 Benign prostatic hyperplasia with lower urinary tract symptoms (principal); R39.89 Other symptoms and signs involving the genitourinary system; N39.41 Urge incontinence | CPT/HCPCS: 51798; 99214 ==

== ENCOUNTER → 2022-03-05 14:32 | Outpatient (BNVA) | payer MEDICARE, MEDICAID, SELFPAY | PROVIDERS: PCP Neuromusculoskeletal Medicine & OMM; Referring Provider Neuromusculoskeletal Medicine & OMM; Visit Provider Psychiatry & Neurology Neurology | DX: G21.11 Neuroleptic induced parkinsonism (principal); R29.2 Abnormal reflex; Z87.820 Personal history of traumatic brain injury; G40.909 Epilepsy, unspecified, not intractable, without status epilepticus; R41.89 Other symptoms and signs involving cognitive functions and awareness; U09.9 Post COVID-19 condition, unspecified | CPT/HCPCS: 99214 ==

== ENCOUNTER → 2022-05-21 09:43 | Outpatient (BNVA) | payer MEDICARE, MEDICAID, SELFPAY | PROVIDERS: PCP Neuromusculoskeletal Medicine & OMM; Referring Provider Neuromusculoskeletal Medicine & OMM; Visit Provider Psychiatry & Neurology Neurology | DX: G21.11 Neuroleptic induced parkinsonism (principal); Z87.820 Personal history of traumatic brain injury; G40.909 Epilepsy, unspecified, not intractable, without status epilepticus; R45.1 Restlessness and agitation | CPT/HCPCS: 99214 ==

== ENCOUNTER → 2022-05-22 14:46 | Outpatient (BNVA) | payer MEDICARE, MEDICAID, SELFPAY | PROVIDERS: PCP Neuromusculoskeletal Medicine & OMM; Referring Provider Neuromusculoskeletal Medicine & OMM; Visit Provider Nurse Practitioner Gerontology | DX: N39.41 Urge incontinence (principal); N40.1 Benign prostatic hyperplasia with lower urinary tract symptoms; R39.89 Other symptoms and signs involving the genitourinary system | CPT/HCPCS: 51798; 99213 ==

== ENCOUNTER → 2022-06-07 10:20 | Outpatient (BNVA) | payer MEDICARE, MEDICAID, SELFPAY | PROVIDERS: PCP Neuromusculoskeletal Medicine & OMM; Referring Provider Neuromusculoskeletal Medicine & OMM; Visit Provider Surgery | DX: R63.4 Abnormal weight loss (principal); Z90.49 Acquired absence of other specified parts of digestive tract | CPT/HCPCS: 99212; 99214 ==

== ENCOUNTER → 2022-08-27 09:02 | Outpatient (BNVA) | payer MEDICARE, MEDICAID, SELFPAY | PROVIDERS: PCP Neuromusculoskeletal Medicine & OMM; Referring Provider Neuromusculoskeletal Medicine & OMM; Visit Provider Psychiatry & Neurology Neurology | DX: G21.11 Neuroleptic induced parkinsonism (principal); R29.2 Abnormal reflex; Z87.820 Personal history of traumatic brain injury; G40.909 Epilepsy, unspecified, not intractable, without status epilepticus; R45.1 Restlessness and agitation | CPT/HCPCS: 99215 ==

== ENCOUNTER 2022-10-03 16:48 | Outpatient (REF) | payer MEDICARE, MEDICAID, SELFPAY ==
[2022-10-03 17:19] LABS: Bilirubin Negative (Negative); Blood Negative (Negative); Clarity Clear (Clear); Glucose Negative (Negative); Ketones Negative (Negative); Leukocyte Esterase Negative (Negative); Nitrite Negative (Negative); Specific Gravity 1.025 (1.005-1.025); Urobilinogen 0.2 mg/dL (Up to 0.2)
== END 2022-10-03 16:49 | disposition home or self-care (01) ==
LOC: LBN 16:48
PROVIDERS: PCP Neuromusculoskeletal Medicine & OMM; Visit Provider Physician Assistant Medical
DX: R35.0 Frequency of micturition (principal)
CPT/HCPCS: 81003

== ENCOUNTER → 2022-10-10 12:56 | Outpatient (BNVA) | payer MEDICARE, MEDICAID, SELFPAY | PROVIDERS: PCP Neuromusculoskeletal Medicine & OMM; Referring Provider Neuromusculoskeletal Medicine & OMM; Visit Provider Urology | DX: N40.1 Benign prostatic hyperplasia with lower urinary tract symptoms (principal); R39.89 Other symptoms and signs involving the genitourinary system; G20 Parkinson's disease | CPT/HCPCS: 51798; 99214 ==

== ENCOUNTER → 2022-11-26 08:51 | Outpatient (BNVA) | payer MEDICARE, MEDICAID, SELFPAY | PROVIDERS: PCP Neuromusculoskeletal Medicine & OMM; Visit Provider Nurse Practitioner Gerontology | DX: N40.1 Benign prostatic hyperplasia with lower urinary tract symptoms (principal); R39.89 Other symptoms and signs involving the genitourinary system; N39.41 Urge incontinence; G20.A1 Parkinson's disease without dyskinesia, without mention of fluctuations | CPT/HCPCS: 51798; 99213 ==

== ENCOUNTER 2023-01-22 14:02 | Outpatient (REF) | payer MEDICARE, MEDICAID, SELFPAY ==
[2023-01-22 17:23] LABS: C Diff PCR Negative (Negative)
== END 2023-01-22 14:03 | disposition home or self-care (01) ==
LOC: LBN 14:02
PROVIDERS: PCP Neuromusculoskeletal Medicine & OMM; Visit Provider Physician Assistant Medical
DX: R19.7 Diarrhea, unspecified (principal)
CPT/HCPCS: 87493

== ENCOUNTER → 2023-03-25 15:02 | Outpatient (BNVA) | payer MEDICARE, MEDICAID, SELFPAY | PROVIDERS: PCP Physician Assistant Medical; Referring Provider Physician Assistant Medical; Visit Provider Podiatrist | DX: L84 Corns and callosities (principal); B35.1 Tinea unguium; M79.672 Pain in left foot; M79.671 Pain in right foot; I70.203 Unspecified atherosclerosis of native arteries of extremities, bilateral legs; M79.674 Pain in right toe(s); M79.675 Pain in left toe(s) | CPT/HCPCS: 11055; 11721 ==

== ENCOUNTER 2023-05-05 05:40 | Outpatient (CLI) | payer MEDICARE, MEDICAID, SELFPAY ==
[2023-05-05 13:03] LABS: Calculated LDL 94 mg/dL (<100); Cholesterol 161 mg/dL (<200); HDL Cholesterol 61 mg/dL (40-60); Triglyceride 32 mg/dL (<150)
[2023-05-05 22:55] LABS: PSA, Screening 0.2 ng/mL (<=6.5)
== END 2023-05-05 05:41 | disposition home or self-care (01) ==
PROVIDERS: PCP Physician Assistant Medical; Visit Provider Physician Assistant
DX: Z00.00 Encounter for general adult medical examination without abnormal findings (principal)
CPT/HCPCS: 36415; 80061; 84153

== ENCOUNTER → 2023-06-19 12:43 | Outpatient (BNVA) | payer MEDICARE, MEDICAID, SELFPAY | PROVIDERS: PCP Physician Assistant Medical; Visit Provider Nurse Practitioner Gerontology | DX: N40.0 Benign prostatic hyperplasia without lower urinary tract symptoms (principal); N39.41 Urge incontinence | CPT/HCPCS: 51798; 99213 ==

== ENCOUNTER → 2023-07-17 14:50 | Outpatient (BNVA) | payer MEDICARE, MEDICAID, SELFPAY | PROVIDERS: PCP Physician Assistant Medical; Referring Provider Physician Assistant Medical; Visit Provider Podiatrist | DX: L84 Corns and callosities (principal); B35.1 Tinea unguium; M79.672 Pain in left foot; M79.671 Pain in right foot; I70.203 Unspecified atherosclerosis of native arteries of extremities, bilateral legs; M79.674 Pain in right toe(s); M79.675 Pain in left toe(s) | CPT/HCPCS: 11721 ==

== ENCOUNTER → 2023-10-16 13:17 | Outpatient (BNVA) | payer MEDICARE, MEDICAID, SELFPAY | PROVIDERS: PCP Physician Assistant Medical; Referring Provider Physician Assistant Medical; Visit Provider Podiatrist | DX: L84 Corns and callosities (principal); B35.1 Tinea unguium; M79.671 Pain in right foot; M79.672 Pain in left foot; I70.203 Unspecified atherosclerosis of native arteries of extremities, bilateral legs; M79.674 Pain in right toe(s); M79.675 Pain in left toe(s) | CPT/HCPCS: 11721 ==

== ENCOUNTER 2023-11-19 01:17 | Outpatient (CLI) | payer MEDICARE, MEDICAID, SELFPAY ==
--- NOTE | 2023-11-19 09:42 | DI.RAD_ITS ---
Exam(s) RF BARIUM SWALLOW EXAM: RF BARIUM SWALLOW CLINICAL HISTORY: Gastelum's esophagus wo dysplasia, K22.70; dysphagia, R13.10 all TECHNIQUE: 2D and realtime digital imaging was performed. CONTRAST MATERIAL: Thick and thin barium and barium tablet were administered. COMPARISON: RF RF MODIFIED SPEECH BA SWALLOW from 02/27/2021 CR,XR XR PORTABLE CHEST AP from 12/11/2021 FINDINGS: The PA and lateral chest films show normal heart size and clear lung torres. Scoliosis noted. Upper thoracic compression fractures. The lateral teradata solution architect view of the neck is unremarkable. Esophagus: The evaluation is limited due to patient immobility. The patient swallowed barium without difficulty. No gross evidence for mucosal erosions. Nofold thickening. No mass is visible. Nostr icture. Motility: Poor primary stripping wave. tertiary contractions were noted. Intra esophageal reflux no osvaldo. There is no hiatal hernia. No significant distal esophageal stricture. Silent aspiration was noted during the exam. IMPRESSION: Silent aspiration. Poor soft the GE all motility with tertiary contractions. Intra esophageal reflux. RADIATION DOSE DELIVERED: deon Espino=7.36 mGy
[2023-11-19] MEDS: Barium Sulfate 60% W/V 355 ML BTL PO (09:45)
[2023-11-19] MEDS: Barium Sulfate 98% W/W 140 ML BTL PO (09:45)
== END 2023-11-19 01:37 ==
LOC: DI 01:17
PROVIDERS: PCP Physician Assistant Medical; Visit Provider Specialist/Technologist Athletic Trainer
DX: K22.710 Barrett's esophagus with low grade dysplasia (principal)
CPT/HCPCS: 74221; J3490

== ENCOUNTER → 2023-12-30 13:46 | Outpatient (BNVA) | payer MEDICARE, MEDICAID, SELFPAY | PROVIDERS: PCP Physician Assistant Medical; Referring Provider Physician Assistant Medical; Visit Provider Nurse Practitioner Gerontology | DX: N40.1 Benign prostatic hyperplasia with lower urinary tract symptoms (principal); R35.1 Nocturia; N39.41 Urge incontinence | CPT/HCPCS: 51798; 99213 ==

== ENCOUNTER → 2024-02-05 11:18 | Outpatient (BNVA) | payer MEDICARE, MEDICAID, SELFPAY | PROVIDERS: PCP Physician Assistant Medical; Referring Provider Physician Assistant Medical; Visit Provider Podiatrist | DX: L84 Corns and callosities (principal); B35.1 Tinea unguium; M79.671 Pain in right foot; M79.672 Pain in left foot; I70.203 Unspecified atherosclerosis of native arteries of extremities, bilateral legs; M79.674 Pain in right toe(s); M79.675 Pain in left toe(s); L60.3 Nail dystrophy; R09.89 Other specified symptoms and signs involving the circulatory and respiratory systems; L65.9 Nonscarring hair loss, unspecified; R60.0 Localized edema; R20.8 Other disturbances of skin sensation | CPT/HCPCS: 11721 ==

== ENCOUNTER 2024-02-25 03:27 | Outpatient (CLI) | payer MEDICARE, MEDICAID, SELFPAY ==
--- NOTE | 2024-02-25 | DI.RAD_ITS ---
Exam(s) RF MODIFIED SPEECH BA SWALLOW TECHNIQUE: Modified barium swallow was performed in conjunction with speech pathology. CONTRAST MATERIAL: Oral barium contrast was administered. COMPARISON: No exams were available for comparison FINDINGS: Note that this is not a dedicated esophagram, distal esophagus not evaluated. There is aspiration seen with thin liquids. The patient was unable to clear the thin liquids with a cough. There was penetration with barium pudding. Speech pathology report to follow. IMPRESSION: There is aspiration with thin liquids. RADIATION DOSE DELIVERED: deon Espino=30.7 mGy
[2024-02-25] MEDS: Barium Sulfate 81% w/w for Oral Suspension 148 GM BTL PO (15:00)
[2024-02-25] MEDS: Barium Sulfate Oral Paste 40% W/V 230 ML TUBE PO (15:05)
--- NOTE | 2024-02-25 15:38 | ST.MBS_ITS ---
Date of Service Date of service: 02/25/24 Time of Service: 15:38 Modified Barium Swallow Study Findings: Video fluoroscopic Swallowing Evaluation (VFSE) / Modified Barium Swallow Study (MBSS) Speech Language Pathology Report Patient referred for VFSE/MBSS from Dr. Harry Correia given increasing dysphagia to solids and liquids. HPI & Patient report of function: Justus Rm) is 73 y/o M with a history of remote TBI, GERD, Gastelum's esophagus, BRIGID with CPAP, HLD and PBH, and colostomy/enterostomy, Parkinsonism, and known history of dysphagia, now with gradual worsening tolerance of solids, oral holding, saliva management issues reported by caregivers. He was seen by [facility] PROJECT MANAGEMENT ANALYST in 01/2021 and MBSS was done at that time which demonstrated poor epiglottic inversion, poor tongue base retraction, reduced UES distension, and diminished pharyngeal stripping wave, and mild reduced hyolaryngeal movement. These impairments resulted primarily in significant vallecular>pyriform especially for purees and solids, but with good airway protection and no penetration/aspiration. Subjective: Patient was accompanied by his caregiver, but she was not present in the room for the exam, only during prep and immediately following. He was initially agreeable and followed instructions. Required assistance to get into position. After several trials, secretion management challenges, bolus needing to be expectorated, he became very irritable and requested to sit down. Once seated be became briefly aggressive. Exam was terminated at that point and his caregiver was asked to re-enter the room. IMPRESSIONS/RESULTS: Exam was limited due to high risk of aspiration as well as patient becoming irritable and early termination. Swallow safety is impaired; swallow efficiency is impaired. Severe-profound chronic oropharyngeal and esophageal dysphagia. Exam narrative: Exam began with mildly thick (nectar) liquid bolus via tsp, which the patient was instructed to hold in oral cavity for several seconds b efore initiation of swallow. Patient had premature spillage into the laryngeal vestibule which was later aspirated as post-swallow residue, despite multiple efforts to clear. Aside from this spillage, the main bulk of the liquid bolus was swallowed without additional penetration aspiration. At one point, after penetrated liquid passed below vocal folds into trachea, he did successfully cough to clear it out of the larynx but was unable to trigger a swallow and the material was re-aspirated. It is possible/likely that with a more naturalistic swallow task (no oral hold) that he may have tolerated this or other liquid consistencies with less risk of aspiration, but unfortunately the exam was terminated due to patient agitation before we could perform additional liquid trials to confirm this suspicion. Patient was sensate to penetration/aspiration and did attempt to clear liquids both spontaneously and to cues. With puree bolus, patient demonstrated delayed and disorganized posterior lingual transit but was able to transit the bolus through the UES rather swiftly and without penetration or significant pharyngeal residue. With soft solid bolus, patient was unable to transit the bolus through the UES and the entire bolus penetrated into the larynx, partially due to kyphotic posture creating a more direct pathway for pyriform residue to fall into larynge al vestibule. Patient was sensate to this event and was able to eject the bolus and expectorate it. Physiologic components most impacting dysphagia presentation include: delayed/disorganized and slow/effortful oral transit, lack of mastication, severe kyphotic posture altering bolus flow (food must pass through UES in a more horizontal flow rather than aided by gravity) and airway vulnerability (gravity pulls residue into airway rather than into pyriform sinus), reduced hyo-laryngeal movement, and reduced UES distension and severe esophageal phase deficits impacting transit into stomach. Patient appears to be at high risk for potential aspiration PNA and/or pulmonary compromise and high risk for malnutrition, high risk for dehydration. Diet modification is indicated as below; non-oral nutrition is not likely to be tolerated by patient. Given no recent history of aspiration pneumonia, suspect his liquid tolerance at home is better than it appeared on exam. Least-risk oral intake is acceptable at this time but it may be useful to document patient/family preferences regarding feeding tube consideration should swallow function decompensate further. Patient with copious thick secretions, likely due to decreased saliva swallow initiation (?in setting of parkinsonism). Benefitted from yankauer suction to clear mouth of residue and secretions at end of exam. Recommend PCP to prescribe home suction device to help with improved oral care to reduce risk of airway compromise as well as for patient comfort. Swallow prognosis is guarded given: Negative prognostic factors: Age, Severity, Time since onset, Cognitive status, Anatomical factors Positive prognostic factors: Family/caregiver support Patient appears to be a good candidate for behavioral swallow rehabilitation x1- 2 follow ups and periodic monitoring to address risk management for least-risk oral feeding and compensatory strategies. Specialist referrals:? RD, GI RECOMMENDATIONS: Diet Texture Recommendation:? IDDSI LEVEL SOLIDS 4-Pureed Solids - ok to add inclusions of finely minced textures as long as they can be carried by thick puree which makes up bulk of bolus (e.g., tapioca pudding, mashed potatoes with small particles of meat included, etc). LIQUIDS 0-Thin Liquids - recommend limiting liquid intake to water only as much as possible. Spread liquid intake out throughout day to minimize potential volumes of aspiration. Do not provide any liquids during meals. Please see further details at?[email or web address] MEDICATIONS Crushed, as able with 4-Puree Diet texture modification is per patient's preference; please adjust diet textures at patient's discretion & collaboration with care team. Do not alter medications (e.g., cut)? without advice from your MD or pharmacist. Oral Care: Complete oral care before and after meals/snacks, using toothbrush and suction device recommended. Risk Management Strategies:? Behavioral reflux precautions, including upright position during + 90 mins after meals. Small bites, approx [id number] Very small sips, approx 5mL / teaspoon Do not provide liquids with meals Saliva Management: Sip small sips of water frequently throughout day. Use oral swabs to clear saliva/food particles from mouth as needed. Gargle water or club soda 3-4x daily and spit in sink when finished. Recommendation for home suction device. Control risk factors for aspiration pneumonia via (a) thorough oral hygiene & (b) maintaining physical mobility as tolerated PLAN: Therapy: Recommend subsequent outpatient session with PROJECT MANAGEMENT ANALYST to review results of today's exam and develop treatment plan as appropriate. Further Compensatory Strategy Training, Further Training/Education in Risk Management, Further Counseling re: Options for maintaining quality of life in context of dysphagia presentation ----- OBJECTIVE Videofluoroscopic Swallow Evaluation (VFSE/MBSS) was conducted in the lateral and [id number] projection by Speech-Language Pathologist, in collaboration with Radiologist, to evaluate oropharyngeal swallow function. Exam was started in A/P view in order to minimize position changes due to mobility challenges and to visualize esophageal phase of swallow. After initial trial of nectar thick liquid, he was turned to the lateral view. Anatomic view under fluoroscopy: Kyphotic posture PO Barium Contrast Trials Oral barium water-soluble contrast was administered as follows: IDDSI Level 2 Varibar nectar thick/mildly thick liquid (40% w/v) IDDSI Level 4 Varibar pudding/pureed/extremely thick (40% w/v) IDDSI Level 7 Regular Solid: 1/2 soft cookie coated in 3 mL Varibar pudding MBSImP Component Scores: COMPONENT Scale SCORE 1 Lip closure (0-4) 1 Resulted in interlabial escape, without progression to anterior lip 2 Hold Position (0-3) 2 Resulted in posterior escape of less than half of the bolus 3 Bolus Preparation (0-4) 3 Was only minimal chewing/mashing with a majority o f the bolus unchewed 4 Bolus Transport (0-4) 3 Was with repetitive/disorganized motion of the tongu e 5 Oral Residue (0-4) 2 Was a collection on oral structures 6 Swallow Initiation (0-4) NA not visualized in lateral view due to early exam termination 7 Soft Palate Elevation (0-4) 0 Resulted in no bolus between soft palate and t he pharyngeal wall 8 Laryngeal Elevation (0-3) 1 Was decreased with partial superior movement of thyroid cartilage/partial approximation of arytenoids to epiglottic petiole 9 Anterior Hyoid Motion (0-2) 1 Demonstrated partial anterior movement 10 Epiglottic Movement (0-2) 1 Resulted in partial inversion 11 Laryngeal Closure (0-2) 1 Was incomplete with narrow a column of air/contra st in laryngeal vestibule 12 Pharyngeal Stripping Wave (0-2) 1 Was present, but diminished 13 Pharyngeal Contraction (0-3) 1 Was incomplete, with presence of p seudodiverticulae 14 PES Opening (0-3) 1 Demonstrated partial distension/partial duration, with partial obstruction of flow 15 Tongue Base Retraction (0-4) 2 Allowed a narrow column of contrast or air between the retracted tongue base and the posterior pharyngeal wall 16 Pharyngeal Residue (0-4) 4 Resulted from minimal to no pharyngeal clearance 17 Esophageal Clearance (0-4) 4 Showed minimal to no esophageal clearance Results: COMPONENT Scale SCORE 1 Oral Score (0-18) 10 2 Pharyngeal Score (0-29) 13 3 Esophageal Score (0-4) 4 Penetration-Aspiration Scale: COMPONENT Scale SCORE 1 Thin liquid (1-8) NA 2 [place] thick (1-8) 7 Contrast entered the airway, passed below the vocal folds, and was not ejected from the trachea despite effort. 3 Honey thick (1-8) NA 4 Pudding thick (1-8) 1 Contrast did not enter the airway 5 Cookie (1-8) 2 Contrast entered the airway, remained above the vocal folds, and was ejected from the airway. Thank you for allowing us to take part in this patient's care. Please feel free to contact the [facility] Speech Language Pathology Department with any questions/concerns.
== END 2024-02-25 03:47 ==
LOC: DI 03:27
PROVIDERS: PCP Specialist/Technologist Athletic Trainer; Visit Provider Speech-Language Pathologist
DX: R13.12 Dysphagia, oropharyngeal phase (principal); G20.C Parkinsonism, unspecified
CPT/HCPCS: 92526; 74221

== ENCOUNTER → 2024-06-17 10:47 | Outpatient (BNVA) | payer MEDICARE, MEDICAID, SELFPAY | PROVIDERS: PCP Specialist/Technologist Athletic Trainer; Referring Provider Physician Assistant Medical; Visit Provider Podiatrist | DX: B35.1 Tinea unguium (principal); L84 Corns and callosities; M79.671 Pain in right foot; M79.672 Pain in left foot; I70.203 Unspecified atherosclerosis of native arteries of extremities, bilateral legs; L60.3 Nail dystrophy; R09.89 Other specified symptoms and signs involving the circulatory and respiratory systems; L65.9 Nonscarring hair loss, unspecified; R60.0 Localized edema; I83.93 Asymptomatic varicose veins of bilateral lower extremities; R20.8 Other disturbances of skin sensation; L85.8 Other specified epidermal thickening; L60.2 Onychogryphosis; R23.8 Other skin changes; R20.2 Paresthesia of skin | CPT/HCPCS: 11721 ==

== ENCOUNTER → 2024-06-29 14:08 | Outpatient (BNVA) | payer MEDICARE, MEDICAID, SELFPAY | PROVIDERS: PCP Specialist/Technologist Athletic Trainer; Referring Provider Specialist/Technologist Athletic Trainer; Visit Provider Nurse Practitioner Gerontology | DX: N40.0 Benign prostatic hyperplasia without lower urinary tract symptoms (principal); N39.41 Urge incontinence; R39.9 Unspecified symptoms and signs involving the genitourinary system; G20.C Parkinsonism, unspecified | CPT/HCPCS: 51798; 99214 ==

== ENCOUNTER → 2024-10-21 10:36 | Outpatient (BNVA) | payer MEDICARE, MEDICAID, SELFPAY | PROVIDERS: PCP Specialist/Technologist Athletic Trainer; Referring Provider Specialist/Technologist Athletic Trainer; Visit Provider Podiatrist | DX: L60.3 Nail dystrophy (principal); B35.1 Tinea unguium; M79.671 Pain in right foot; M79.672 Pain in left foot; I70.203 Unspecified atherosclerosis of native arteries of extremities, bilateral legs; R09.89 Other specified symptoms and signs involving the circulatory and respiratory systems; L65.9 Nonscarring hair loss, unspecified; R60.0 Localized edema; I83.93 Asymptomatic varicose veins of bilateral lower extremities; R20.8 Other disturbances of skin sensation; M20.41 Other hammer toe(s) (acquired), right foot; M20.42 Other hammer toe(s) (acquired), left foot; L85.8 Other specified epidermal thickening; L60.2 Onychogryphosis; R23.8 Other skin changes | CPT/HCPCS: 11721 ==

== ENCOUNTER → 2024-12-28 13:21 | Outpatient (BNVA) | payer MEDICARE, MEDICAID, SELFPAY | PROVIDERS: PCP Neuromusculoskeletal Medicine & OMM; Referring Provider Neuromusculoskeletal Medicine & OMM; Visit Provider Nurse Practitioner Gerontology | DX: N40.1 Benign prostatic hyperplasia with lower urinary tract symptoms (principal); N39.41 Urge incontinence; G20.C Parkinsonism, unspecified; I95.1 Orthostatic hypotension; R39.9 Unspecified symptoms and signs involving the genitourinary system | CPT/HCPCS: 99214; 51798 ==

== ENCOUNTER 2024-12-28 14:45 | Outpatient (CLI) | payer MEDICARE, MEDICAID, SELFPAY ==
[2024-12-28 16:20] LABS: BUN 22 mg/dL (9-23)
== END 2024-12-28 14:46 | disposition home or self-care (01) ==
LOC: LBO 14:46
PROVIDERS: PCP Neuromusculoskeletal Medicine & OMM; Visit Provider Nurse Practitioner Gerontology
DX: R32 Unspecified urinary incontinence (principal); N40.0 Benign prostatic hyperplasia without lower urinary tract symptoms
CPT/HCPCS: 36415; 84520; 82565

== ENCOUNTER → 2025-01-17 12:51 | Outpatient (BNVA) | payer MEDICARE, MEDICAID, SELFPAY | PROVIDERS: PCP Neuromusculoskeletal Medicine & OMM; Referring Provider Specialist/Technologist Athletic Trainer; Visit Provider Podiatrist | DX: B35.1 Tinea unguium (principal); L84 Corns and callosities; M79.671 Pain in right foot; M79.672 Pain in left foot; I70.203 Unspecified atherosclerosis of native arteries of extremities, bilateral legs; G20.C Parkinsonism, unspecified; Z87.820 Personal history of traumatic brain injury; L60.3 Nail dystrophy; R09.89 Other specified symptoms and signs involving the circulatory and respiratory systems; L65.9 Nonscarring hair loss, unspecified; R60.0 Localized edema; I83.93 Asymptomatic varicose veins of bilateral lower extremities; R20.8 Other disturbances of skin sensation; L85.8 Other specified epidermal thickening; L60.2 Onychogryphosis; R23.4 Changes in skin texture; R23.8 Other skin changes | CPT/HCPCS: 11056; 11721 ==

== ENCOUNTER 2025-02-15 09:42 | Outpatient (CLI) | payer MEDICARE, MEDICAID, SELFPAY ==
[2025-02-15 10:52] LABS: ALT 19 U/L (10-49); AST 23 U/L (<34); Albumin 4.2 g/dL (3.2-5.0); Alkaline Phosphatase 82 U/L (46-116); Anion Gap 5.7 mmol/L (3-11); BUN 18 mg/dL (9-23); Bilirubin, Total 0.4 mg/dL (0.2-1.2); CO2 34.3 mmol/L (20.0-31.0); Calcium 9.2 mg/dL (8.3-10.6); Chloride 103 mmol/L (98-107); Glucose 88 mg/dL (74-106); Potassium 3.8 mmol/L (3.5-5.1); Sodium 143 mmol/L (136-145); Total Protein 6.9 g/dL (5.7-8.2)
== END 2025-02-15 09:43 | disposition home or self-care (01) ==
LOC: LBO 09:42
PROVIDERS: PCP Neuromusculoskeletal Medicine & OMM; Visit Provider Specialist/Technologist Athletic Trainer
DX: E46 Unspecified protein-calorie malnutrition (principal)
CPT/HCPCS: 36415; 80053